=== PATIENT | female | born 1970 | race African-American/Black ===

== ENCOUNTER 2021-11-28 09:29 | Outpatient (REF) | payer OTHER, SELFPAY ==
[2021-11-28 10:11] LABS: MANUAL DIFF FLAG NO
[2021-11-28 10:29] LABS: Basophils Percent Auto 0.5 % (0-2); Eosinophils Absolute Auto 0.2 X10*3/uL (0.0-0.4); Eosinophils Percent Auto 3.8 % (0-4); Hematocrit 37.1 % (37.0-47.0); Lymphocytes Absolute Auto 1.4 X10*3/uL (1.2-4.9); Lymphocytes Percent Auto 35.2 % (20-40); Mean Corpuscular HGB Conc 32.3 g/dl (31.0-35.0); Mean Corpuscular Hemoglobin 27.6 pg (27.0-33.0); Mean Corpuscular Volume 85.3 fL (80.0-98.0); Mean Platelet Volume 10.3 fL (9.4-12.3); Monocytes Absolute Auto 0.4 X10*3/uL (0.1-1.2); Monocytes Percent Auto 10.1 % (2-11); Neutrophils Percent Auto 50.4 % (45-73); Platelet Count 376 X10*3/uL (160-400); Red Blood Count 4.35 X10*6/uL (4.20-5.50); Red Cell Distribution Width 13.3 % (11.0-16.0)
[2021-11-28 10:40] LABS: Estimated Average Glucose 108 mg/dL; Hemoglobin A1c % 5.4 %
[2021-11-28 11:05] LABS: Alanine Aminotransferase 34 U/L (0-31); Albumin Level 4.3 g/dL (3.5-5.0); Alkaline Phosphatase 88 U/L (39-117); Anion Gap 12 (12-20); Aspartate Amino Transferase 22 U/L (5-31); Bilirubin Total 0.6 mg/dL (0.0-1.0); Blood Urea Nitrogen 14 mg/dL (9-16); Calcium 9.5 mg/dL (8.4-10.2); Carbon Dioxide 25 mmol/L (22-29); Chloride 104 mmol/L (96-108); Cholesterol 218 mg/dL; Estimated Glomerular Filt Rate > 60; Glucose Fasting 92 mg/dL (60-99); HDL Cholesterol 40 mg/dL; LDL Cholesterol Calculated 149 mg/dl; Sodium 137 mmol/L (135-145); Total Protein 6.9 g/dL (6.5-8.0); Triglycerides 145 mg/dL
[2021-11-28 11:15] LABS: TSH reflex Free T4 0.78 uIU/mL (0.32-4.0)
[2021-11-28 11:31] LABS: Folate 9.6 ng/mL (> or = 4.0); Vitamin B12 298 pg/mL (200-900)
[2021-11-28 11:33] LABS: Microalbum/Creatinine Ratio Ur 3.5 ug/mg cr
[2021-12-03 17:02] LABS: Vitamin D 25-OH, D2 <4 ng/mL; Vitamin D 25-OH, D3 33 ng/mL; Vitamin D 25-OH, Total 33 ng/mL (30-100)
== END 2021-11-28 09:30 | disposition home or self-care (01) ==
LOC: HO.LAB 09:29
PROVIDERS: PCP Nurse Practitioner Acute Care; Visit Provider Nurse Practitioner Acute Care
DX: E11.9 Type 2 diabetes mellitus without complications (principal); I10 Essential (primary) hypertension
CPT/HCPCS: 36415; 80053; 80061; 82043; 82306; 82607; 82746; 83036; 84443; 85025

== ENCOUNTER 2021-12-12 18:32 | Outpatient (REF) | payer OTHER, SELFPAY ==
[2021-12-12 18:55] LABS: Appearance Urine CLEAR; Color Urine YELLOW; Glucose Urine UA NEG (NEG); Leukocyte Esterase Urine NEG (NEG); Nitrite Urine NEG (NEG); Specific Gravity - Urine <= 1.005 (1.005-1.025); Urine Blood TRACE (NEG); Urine Ketones NEG (NEG); Urine Protein NEG (NEG-TRACE)
[2021-12-12 19:14] LABS: Bacteria Urine 2+ /LPF; Squamous Epithelial Cell Urine 2+ /LPF; WBC Urine 0-2 /HPF (0-4)
== END 2021-12-12 18:33 | disposition home or self-care (01) ==
LOC: HO.LNP 18:32
PROVIDERS: Visit Provider Nurse Practitioner Acute Care
DX: R82.998 Other abnormal findings in urine (principal)
CPT/HCPCS: 81001

== ENCOUNTER → 2021-12-19 08:33 | Outpatient (BNVA) | payer OTHER, SELFPAY | PROVIDERS: PCP Nurse Practitioner Acute Care; Referring Provider Nurse Practitioner Acute Care; Visit Provider Physician Assistant | DX: Z13.89 Encounter for screening for other disorder (principal) ==

== ENCOUNTER → 2022-01-12 08:10 | Outpatient (BNVA) | payer OTHER, SELFPAY | PROVIDERS: PCP Nurse Practitioner Acute Care; Visit Provider Physician Assistant Surgical | DX: Z13.89 Encounter for screening for other disorder (principal) ==

== ENCOUNTER → 2022-01-20 08:38 | Outpatient (BNVA) | payer OTHER, SELFPAY | PROVIDERS: PCP Nurse Practitioner Acute Care; Referring Provider Nurse Practitioner Acute Care; Visit Provider Physician Assistant Surgical | DX: Z11.0 Encounter for screening for intestinal infectious diseases (principal) | CPT/HCPCS: 99211 ==

== ENCOUNTER 2022-01-20 15:48 | Outpatient (REF) | payer OTHER, SELFPAY ==
[2022-01-21 12:42] LABS: H Pylori Breath Test Negative (Negative)
== END 2022-01-20 15:49 | disposition home or self-care (01) ==
LOC: HO.LNP 15:48
PROVIDERS: Visit Provider Physician Assistant Surgical
DX: E66.9 Obesity, unspecified (principal)
CPT/HCPCS: 83013

== ENCOUNTER → 2022-02-12 10:00 | Outpatient (BNVA) | payer OTHER, SELFPAY | PROVIDERS: PCP Nurse Practitioner Acute Care; Referring Provider Surgery; Visit Provider Counselor Mental Health | DX: F33.1 Major depressive disorder, recurrent, moderate (principal); F50.81 Binge eating disorder; E66.9 Obesity, unspecified | CPT/HCPCS: 90791 ==

== ENCOUNTER → 2022-02-16 10:21 | Outpatient (BNVA) | payer OTHER, SELFPAY | PROVIDERS: PCP Nurse Practitioner Acute Care; Referring Provider Surgery; Visit Provider Dietitian, Registered | DX: E66.9 Obesity, unspecified (principal) | CPT/HCPCS: 97802 ==

== ENCOUNTER 2022-02-20 06:58 | Outpatient (REF) | payer OTHER, SELFPAY ==
--- NOTE | ~2022-02-20 | XR_ITS ---
EXAMINATION: XR CHEST 2 VIEWS CLINICAL INFORMATION: Obesity. COMPARISON: None. TECHNIQUE: Frontal and lateral views of the chest were obtained. FINDINGS: The heart, great vessels, pulmonary vasculature and mediastinum are normal. The lungs show no focal infiltrate, effusion or pneumothorax. There is no acute osseous abnormality. XR/XR chest 2V IMPRESSION: No active cardiopulmonary disease.
--- NOTE | 2022-02-20 07:04 | ECG_ITS ---
Test Reason : cp Blood Pressure : / mmHG Vent. Rate : 077 BPM Atrial Rate : 077 BPM P-R Int : 150 ms QRS Dur : 094 ms QT Int : 406 ms P-R-T Axes : 066 -50 -13 degrees QTc Int : 459 ms Normal sinus rhythm Left axis deviation Minimal voltage criteria for LVH, may be normal variant ( Star product ) Septal infarct , age undetermined Abnormal ECG No previous ECGs available Referred By: Vinnie Cornelius Electronically Signed By:NATALIA RANDALL
[2022-02-20 07:48] LABS: C Reactive Protein 0.41 mg/dL (< or = 0.50); Iron 107 mcg/dL (30-160); Percent Iron Saturation 31 % (15-50); Total Iron Binding Capacity 341 mcg/dL (228-428); Unsaturated Iron Binding 234 ug/dL
[2022-02-20 08:12] LABS: Ferritin 45 ng/mL (10-250); Insulin 50 uU/mL (2-29)
[2022-02-23 15:52] LABS: Calcium (PTHI) 9.3 mg/dL (8.6-10.4); PTHI 74 pg/mL (16-77)
[2022-02-25 01:01] LABS: Zinc 86 mcg/dL (60-130)
[2022-02-25 13:05] LABS: Vitamin A 56 mcg/dL (38-98)
[2022-02-26 16:51] LABS: Vitamin B1 8 nmol/L (8-30)
== END 2022-02-20 06:59 | disposition home or self-care (01) ==
LOC: HO.LAB 06:58
PROVIDERS: PCP Nurse Practitioner Acute Care; Visit Provider Physician Assistant Surgical
DX: Z01.818 Encounter for other preprocedural examination (principal); E66.9 Obesity, unspecified
CPT/HCPCS: 36415; 71046; 82728; 83525; 83540; 83970; 84425; 84590; 84630; 86140; 93005

== ENCOUNTER 2022-03-09 | Outpatient (REF) | payer OTHER, SELFPAY | END 2022-03-09 00:01 | disposition home or self-care (01) | LOC: CF | PROVIDERS: PCP Nurse Practitioner Acute Care; Visit Provider Surgery | DX: E66.9 Obesity, unspecified (principal); F50.81 Binge eating disorder; F33.1 Major depressive disorder, recurrent, moderate | CPT/HCPCS: 90834 ==

== ENCOUNTER 2022-03-17 10:56 | Outpatient (REF) | payer OTHER, SELFPAY ==
[2022-03-18 23:06] LABS: Follicle Stimulating Hormone 38.3 mIU/mL; Lutenizing Hormone 87.5 mIU/mL
[2022-03-20 07:06] LABS: HPV mRNA E6/E7 rflx Not Detected (Not Detected)
== END 2022-03-17 10:57 | disposition home or self-care (01) ==
LOC: HO.LAB 10:56
PROVIDERS: Visit Provider Obstetrics & Gynecology
DX: Z01.419 Encounter for gynecological examination (general) (routine) without abnormal findings (principal); Z11.51 Encounter for screening for human papillomavirus (HPV); F32.A Depression, unspecified; Z90.711 Acquired absence of uterus with remaining cervical stump
CPT/HCPCS: 36415; 83001; 83002; 84443; 87624; 88142

== ENCOUNTER → 2022-03-18 10:32 | Outpatient (BNVA) | payer OTHER, SELFPAY | PROVIDERS: PCP Nurse Practitioner Family; Visit Provider Dietitian, Registered | DX: E66.9 Obesity, unspecified (principal); Z71.3 Dietary counseling and surveillance | CPT/HCPCS: 97803 ==

== ENCOUNTER → 2022-05-11 12:47 | Outpatient (BNVA) | payer OTHER, SELFPAY | PROVIDERS: PCP Nurse Practitioner Family; Visit Provider Obstetrics & Gynecology | DX: F32.A Depression, unspecified (principal); Z78.0 Asymptomatic menopausal state | CPT/HCPCS: 99212 ==

== ENCOUNTER 2022-07-29 10:56 | Outpatient (REF) | payer OTHER, SELFPAY ==
[2022-07-29 16:05] LABS: Influenza A PCR NEGATIVE (Negative); Influenza B PCR NEGATIVE (Negative); Resp Syncy Virus RNA Qual PCR NEGATIVE (Negative); SARS COV2 PCR INHOUSE NEGATIVE (Negative)
== END 2022-07-29 10:57 | disposition home or self-care (01) ==
LOC: HO.LAB 10:56
PROVIDERS: Visit Provider Nurse Practitioner Family
DX: Z20.822 Contact with and (suspected) exposure to COVID-19 (principal); J02.9 Acute pharyngitis, unspecified
CPT/HCPCS: 0241U

== ENCOUNTER → 2022-08-24 08:50 | Outpatient (BNVA) | payer OTHER, SELFPAY | PROVIDERS: PCP Nurse Practitioner Family; Visit Provider Physician Assistant Surgical | DX: E66.9 Obesity, unspecified (principal); Z68.35 Body mass index [BMI] 35.0-35.9, adult | CPT/HCPCS: 99212 ==

== ENCOUNTER 2022-11-16 10:30 | Outpatient (REF) | payer OTHER, SELFPAY ==
--- NOTE | ~2022-11-16 | XR_ITS ---
EXAMINATION: XR KNEE, RIGHT CLINICAL INFORMATION: Pain. COMPARISON: None TECHNIQUE: AP and lateral views of the right knee. FINDINGS: Bones and soft tissues are normal. No fracture or joint effusion. Alignment is anatomic. Joint spaces are well maintained. No abnormal soft tissue calcification. XR/XR knee RT 2V IMPRESSION: Normal right knee.
--- NOTE | ~2022-11-16 | XR_ITS ---
EXAMINATION: XR CHEST 2 VIEWS CLINICAL INFORMATION: Dyspnea. COMPARISON: Chest radiographs dated 02/20/2022. TECHNIQUE: Frontal and lateral views of the chest were obtained. FINDINGS: The heart, great vessels, pulmonary vasculature and mediastinum are normal. The lungs show no focal infiltrate, effusion or pneumothorax. There is no acute osseous abnormality. XR/XR chest 2V IMPRESSION: No active cardiopulmonary disease.
== END 2022-11-16 10:31 | disposition home or self-care (01) ==
LOC: HO.XRAY 10:30
PROVIDERS: PCP Nurse Practitioner Family; Visit Provider Nurse Practitioner Family
DX: M25.561 Pain in right knee (principal); R06.09 Other forms of dyspnea
CPT/HCPCS: 71046; 73560

== ENCOUNTER 2023-03-25 13:43 | Outpatient (AMB) | payer OTHER, SELFPAY ==
--- NOTE | 2023-03-25 13:44 | A.OFFPC_ITS ---
Vital Signs 03/25/23 13:46 Height 5 ft 5 in BP 142/90 H Blood Pressure Location Rt brachial Position Sitting Pulse 86 Pulse Source Pulse Oximeter Pulse Oximetry (%) 97 Intake Visit Reasons: headaches, nervousness Intake Note: pt is here for c/o headaches and nervousness, fatigue 1x month. patient declined weight Hazardous Waste Management Specialist Required: No Accompanied by: Self / Same As Patient Allergies Penicillins Allergy (Intermediate, Verified 03/25/23 13:45) Hives Tobacco use date assessed: 02/15/23 Dental Screening Dental Screen Date: 03/25/23 Did you have a dental visit in the last 12 months?: Yes Did you have a dental problem in the last 6 months where you did not have access to dental care?: No Was dental information given to patient?: Patient has dentist HPI HPI Comments History of Present Illness Details 52-year-old female history of hypertension,ADHD, diabetes type 2, major depressive disorder, anxiety and hyperlipidemia.? 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 Patient states has been working 10-14 hour days at work and she has been experiencing work related stress. Patient reports previous on fluoxetine but this caused her to gain weight.Patient also requesting a referral to a weight management program outside of [facility]. [facility] Medical History Encounter to establish care History of PCOS Hypertension Obesity (BMI 30-39.9) Right knee pain Type II diabetes mellitus Surgical History H/O: hysterectomy History of partial hysterectomy Family History Mother No problems noted. Father No problems noted. Brother No problems noted. Brother No problems noted. Sister No problems noted. Son No problems noted. Son No problems noted. Daughter No problems noted. Social History Housing: Apartment Patient Tobacco Use Status: Never used Tobacco e-Cigarette/Vaping Use: Never Used Second Hand Smoke Exposure: No service: No Current occupational status: employed Current occupational exposures/hazards: No Cognitive needs: No Hearing needs: No Vision needs: Yes Questionnaire Thrive Questionnaire Date Thrive assessed: 10/01/22 ALVARO-7 AMB Questionnaire ALVARO-7 Date ALVARO - 7 assessed: 10/01/22 Source: Developed by Drs. Dennis Arreaga, Melody Jeter, Jean Marie Staley and colleagues, with an educational deandre from [employer]. Review of Systems Const Denies chills, Reports fatigue, Denies fever(s), Denies poor appetite and Denies weight loss Eyes Denies no additional complaints ENT Reports Normal hearing present Card Denies chest pain, Denies syncope, Denies rapid heart rate and Denies dyspnea Resp Denies cough and Denies dyspnea GI Denies change in stool character, Denies constipation, Denies diarrhea, Denies nausea and Denies vomiting Denies urinary frequency, Denies dysuria and Denies urinary urgency Neuro Reports Normal hearing present, Denies confusion and Denies syncope Psych Denies confusion Endo Reports fatigue Physical exam (Primary Care) Vital Signs: Last Vital Signs Pulse 86 03/25/23 13:46 BP 142/90 H 03/25/23 13:46 Pulse Ox 97 03/25/23 13:46 Tobacco/Smoking Status: Tobacco use Status Tobacco use date assessed 02/15/23 03/25/23 13:46 Patient Tobacco Use Status Never used Tobacco 03/25/23 13:46 e-Cigarette/Vaping Use Never Used 03/25/23 13:46 Thrive Assessment: Date of Thrive Assessment Date Thrive assessed 10/01/22 03/25/23 13:46 Const General: No confusion Orientation/consciousness: No confusion HENOK Head: Yes normocephalic and Yes atraumatic Eyes Conjunctivae: conjunctivae normal Chest Chest palpation & inspection: normal inspection of the chest Resp Effort & Inspection: normal respiratory effort Auscultation: clear to auscultation bilaterally, no crackles, no rhonchi and no wheezes Cardio Rate: regular rate Rhythm: regular rhythm Heart sounds: S1 normal heart sound present and S2 normal heart sound present GI Inspection: Yes normal to inspection Neuro General: No confusion Cranial nerves: Yes Normal hearing present Extrem General: No edema Assessment and Plan Assessment & Plan (1) Fatigue: Code(s): R53.83 - Other fatigue Plan: Will draw complete blood work to further evaluate. (2) Obesity (BMI 30-39.9): Code(s): E66.9 - Obesity, unspecified Plan: Referral entered to (3) Anxiety: Code(s): F41.9 - Anxiety disorder, unspecified Plan: Patient advised if continues to experience nervousness following BAR exam will dicuss starting her back on SSRI. Patient does not want to take any medication at this time prior to her test. (4) Moderate major depression: Code(s): F32.1 - Major depressive disorder, single episode, moderate Plan: Denies SI/HI. See anxiety plan. Plan Keep scheduled follow up in 1 month. Orders: Orders Vitamin B12 and Folate Today Z13.21 - Encounter for screening for nutritional disorder Comprehensive [place]. Panel Fast Today R53.83 - Other fatigue TSH reflex Free T4 Today Z13.29 - Encounter for screening for other suspected endocrine disorder Vitamin B1 Today R53.83 - Other fatigue Vitamin D 25-OH Total Today Z13.21 - Encounter for screening for nutritional disorder Complete Blood Count Auto Diff Today Z13.0 - Encounter for screening for diseases of the blood and blood-forming organs and certain disorders involving the immune mechanism Lipid Panel Today Z13.220 - Encounter for screening for lipoid disorders Referrals Medical Weight Management Referral E66.9 - Obesity, unspecified Coding Level of Care Code Est Pt Level 4 (03627) Diagnoses Fatigue R53.83 Obesity (BMI 30-39.9) E66.9 Anxiety F41.9 Moderate major depression F32.1
[2023-03-25 13:46] VITALS: BP 142/90; PULSE 86; O2SAT 97
== END 2023-03-25 14:18 | disposition home or self-care (01) ==
PROVIDERS: PCP Nurse Practitioner Family; Visit Provider Nurse Practitioner Family
DX: R53.83 Other fatigue (principal); E66.9 Obesity, unspecified; F41.9 Anxiety disorder, unspecified; F32.1 Major depressive disorder, single episode, moderate
CPT/HCPCS: 99214

== ENCOUNTER 2023-04-26 07:07 | Outpatient (REF) | payer OTHER, SELFPAY ==
[2023-04-26 07:45] LABS: MANUAL DIFF FLAG NO
[2023-04-26 08:22] LABS: Basophils Percent Auto 0.4 % (0-2); Eosinophils Absolute Auto 0.1 X10*3/uL (0.0-0.4); Eosinophils Percent Auto 2.5 % (0-4); Hematocrit 36.3 % (37.0-47.0); Hemoglobin 11.9 g/dl (12.0-16.0); Imm Gran Abs Auto 0.01 X10*3/uL (0.00-0.03); Imm Gran Pct Auto 0.2 % (0.0-0.4); Lymphocytes Absolute Auto 1.5 X10*3/uL (1.2-4.9); Lymphocytes Percent Auto 33.3 % (20-40); Mean Corpuscular HGB Conc 32.8 g/dl (31.0-35.0); Mean Corpuscular Hemoglobin 27.5 pg (27.0-33.0); Mean Platelet Volume 10.2 fL (9.4-12.3); Monocytes Absolute Auto 0.5 X10*3/uL (0.1-1.2); Monocytes Percent Auto 10.9 % (2-11); Neutrophils Absolute Auto 2.4 x10*3/uL (2.0-8.3); Neutrophils Percent Auto 52.7 % (45-73); Platelet Count 386 X10*3/uL (160-400); Red Blood Count 4.32 X10*6/uL (4.20-5.50); Red Cell Distribution Width 14.4 % (11.0-16.0); White Blood Count 4.5 X10*3/uL (4.8-10.8)
[2023-04-26 08:46] LABS: Iron 141 mcg/dL (30-160); Percent Iron Saturation 46 % (15-50); Total Iron Binding Capacity 309 mcg/dL (228-428); Unsaturated Iron Binding 168 ug/dL
[2023-04-26 09:06] LABS: Cortisol Random 13.5 ug/dL
[2023-04-26 09:45] LABS: Alanine Aminotransferase 31 U/L (0-31); Albumin Level 4.3 g/dL (3.5-5.0); Alkaline Phosphatase 86 U/L (39-117); Anion Gap 11 (12-20); Aspartate Amino Transferase 25 U/L (5-31); Bilirubin Total 0.6 mg/dL (0.0-1.0); Blood Urea Nitrogen 11 mg/dL (9-16); Calcium 9.3 mg/dL (8.4-10.2); Carbon Dioxide 27 mmol/L (22-29); Chloride 105 mmol/L (96-108); Cholesterol 235 mg/dL; Estimated Glomerular Filt Rate > 60; Glucose Fasting 101 mg/dL (60-99); HDL Cholesterol 43 mg/dL; LDL Cholesterol Calculated 167 mg/dl; Potassium 4.1 mmol/L (3.3-5.1); Sodium 139 mmol/L (135-145); TSH reflex Free T4 1.86 uIU/mL (0.32-4.0); Triglycerides 126 mg/dL; Vitamin D 25-OH Total 53.7 ng/mL (>30)
[2023-04-26 09:51] LABS: Vitamin B12 407 pg/mL (200-900)
[2023-04-26 11:30] LABS: Estimated Average Glucose 111 mg/dL; Hemoglobin A1c % 5.5 %
[2023-04-26 17:09] LABS: Appearance Urine Cloudy; Color Urine Yellow; Glucose Urine UA Negative (Negative); Leukocyte Esterase Urine Negative (Negative); Nitrite Urine Positive (Negative); PH 7.5 (5.0-9.0); UMIC TRIGGER UACC YES; Urine Blood Negative (Negative); Urine Ketones Negative (Negative); Urine Protein Negative (Neg-Trace)
[2023-04-26 17:30] LABS: Bacteria Urine 4+ (None Seen); Hyaline Casts Urine 0-2 /LPF (0-2); UACC Culture Trigger YES; WBC Urine 0-5 /HPF (0-5)
[2023-04-29 23:33] LABS: Cotinine <2 ng/mL; Nicotine <2 ng/mL
[2023-04-30 17:08] LABS: Vitamin B1 11 nmol/L (8-30)
== END 2023-04-26 07:08 | disposition home or self-care (01) ==
LOC: HO.LAB 07:07
PROVIDERS: Nurse Practitioner Family; Absent Provider Surgery; Visit Provider Nurse Practitioner Family
DX: Z13.220 Encounter for screening for lipoid disorders (principal); Z13.21 Encounter for screening for nutritional disorder; Z13.0 Encounter for screening for diseases of the blood and blood-forming organs and certain disorders involving the immune mechanism; Z13.29 Encounter for screening for other suspected endocrine disorder; R53.83 Other fatigue; E66.9 Obesity, unspecified
CPT/HCPCS: 36415; 80053; 80061; 80323; 81001; 81003; 82306; 82533; 82607; 82746; 83036; 83540; 84425; 84443; 85025; 87086; 87088; 87186

== ENCOUNTER 2023-04-26 09:04 | Outpatient (AMB) | payer OTHER, SELFPAY ==
[2023-04-26 09:07] VITALS: BP 118/88; PULSE 84; O2SAT 99
--- NOTE | 2023-04-26 09:07 | A.OFFPC_ITS ---
Vital Signs 04/26/23 09:07 Height 5 ft 5 in BMI Reason not done Patient refused/unable BP 118/88 Blood Pressure Location Lt brachial Position Sitting Pulse 84 Pulse Source Pulse Oximeter Temp Source Skin Pulse Oximetry (%) 99 Oxygen Delivery Method Room Air Intake Visit Reasons: 2mth f/u Epic Kaleidoscope Analyst Required: No Allergies Penicillins Allergy (Intermediate, Verified 04/26/23 09:07) Hives Tobacco use date assessed: 04/26/23 Dental Screening Dental Screen Date: 04/26/23 Did you have a dental visit in the last 12 months?: Yes Did you have a dental problem in the last 6 months where you did not have access to dental care?: No Was dental information given to patient?: Patient has dentist HPI HPI Comments History of Present Illness Details 52-year-old female history of hypertension,ADHD, diabetes type 2, major depressive disorder, anxiety and hyperlipidemia.? Patient of Kasey Turcios NP last seen in March. Patient presents today for follow up visit. PAtient states requesting to start on medication for depression and anxiety. agreeable to start escitalopram. Patient states being followed by Dr Mahajan for weight management. Patient states has vaginal discharge, denies itching, burning on urination, states odor. x1 week. tired otc monastat with no improvement. States her urine is orange in color, UA in office showed leukocytes and nitrites. Requesting Referral to establish care with obgyn, order entered. [facility] Medical History Encounter to establish care History of PCOS Hypertension Obesity (BMI 30-39.9) Right knee pain Type II diabetes mellitus Surgical History H/O: hysterectomy History of partial hysterectomy Family History Mother No problems noted. Father No problems noted. Brother No problems noted. Brother No problems noted. Sister No problems noted. Son No problems noted. Son No problems noted. Daughter No problems noted. Social History Housing: Apartment Patient Tobacco Use Status: Never used Tobacco e-Cigarette/Vaping Use: Never Used Second Hand Smoke Exposure: No service: No Current occupational status: employed Current occupational exposures/hazards: No Cognitive needs: No Hearing needs: No Vision needs: Yes Questionnaire Thrive Questionnaire Date Thrive assessed: 10/01/22 AUDIT C Alcohol Use Questionnaire (AUDIT-C) 1. How often do you have a drink containing alcohol?: Never 3. How often do you have six or more drinks on one occasion?: Never Total Score: 0 Score Reviewed/Action Taken: No ALVARO-7 AMB Questionnaire ALVARO-7 Date ALVARO - 7 assessed: 10/01/22 Source: Developed by Drs. Dennis Arreaga, Melody Jeter, Jean Marie Staley and colleagues, with an educational deandre from [employer]. Review of Systems Const Denies chills, Denies fatigue, Denies fever(s) and Denies poor appetite Eyes Denies no additional complaints ENT Reports Normal hearing present Card Denies chest pain, Denies syncope, Denies rapid heart rate and Denies dyspnea Resp Denies cough and Denies dyspnea GI Denies change in stool character, Denies constipation, Denies diarrhea, Denies nausea and Denies vomiting Denies urinary frequency, Denies dysuria and Denies urinary urgency Neuro Reports Normal hearing present, Denies confusion and Denies syncope Psych Denies confusion Endo Denies fatigue Physical exam (Primary Care) Vital Signs: Last Vital Signs Pulse 84 04/26/23 09:07 BP 118/88 04/26/23 09:07 Pulse Ox 99 04/26/23 09:07 Oxygen Delivery Method Room Air 04/26/23 09:07 Tobacco/Smoking Status: Tobacco use Status Tobacco use date assessed 04/26/23 04/26/23 09:08 Patient Tobacco Use Status Never used Tobacco 04/26/23 09:08 e-Cigarette/Vaping Use Never Used 04/26/23 09:08 Thrive Assessment: Date of Thrive Assessment Date Thrive assessed 10/01/22 04/26/23 09:08 Const General: No confusion Orientation/consciousness: No confusion HENMT Head: Yes normocephalic and Yes atraumatic Eyes Conjunctivae: conjunctivae normal Chest Chest palpation & inspection: normal inspection of the chest Resp Effort & Inspection: normal respiratory effort Auscultation: clear to auscultation bilaterally, no crackles, no rhonchi and no wheezes Cardio Rate: regular rate Rhythm: regular rhythm Heart sounds: S1 normal heart sound present and S2 normal heart sound present GI Inspection: Yes normal to inspection Neuro General: No confusion Cranial nerves: Yes Normal hearing present Extrem General: No edema Results AMB Urinalysis, Automated UA Leukoctes 15 [place]/uL Last Edit by Shantel Torres Jeanna on 04/26/23 09:28 UA Nitrite Positive Last Edit by Shantel Torres Jeanna on 04/26/23 09:28 UA Urobilinogen 0.2 mg/dL Last Edit by Shantel Torres [facility] on 04/26/23 09:28 UA Protein 15 mg/dL Last Edit by Shantel Torres [facility] on 04/26/23 09:28 UA pH 7.0 Last Edit by Shantel Torres [facility] on 04/26/23 09:28 UA Blood 10 [place]/uL Last Edit by Shantel Torres [facility] on 04/26/23 09:28 UA Specific Walker 1.010 Last Edit by Shantel Torres Jeanna on 04/26/23 09:28 UA Ketone Negative Last Edit by Shantel Torres [facility] on 04/26/23 09:28 UA Bilirubin 0 mg/dL Last Edit by Shantel Torres [facility] on 04/26/23 09:28 UA Glucose 0 mg/dL Last Edit by Shantel Torres [facility] on 04/26/23 09:28 Results Reviewed Results Reviewed: Laboratory Last Values Urine pH (Auto) 7.0 04/26/23 09:26 Specific Walker (Auto) 1.010 04/26/23 09:26 Urine Protein (Auto) 15 mg/dL 04/26/23 09:26 Glucose (UA)(Auto) 0 mg/dL 04/26/23 09:26 Urine Ketones (Auto) Negative 04/26/23 09:26 Urine Blood (Auto) 10 Napoleon/uL 04/26/23 09:26 Urine Nitrite (Auto) Positive 04/26/23 09:26 Urine Bilirubin (Auto) 0 mg/dL 04/26/23 09:26 Urine Urobilinogen (Auto) 0.2 mg/dL 04/26/23 09:26 Leukocyte Esterase (Auto) 15 [place]/uL 04/26/23 09:26 Assessment and Plan Assessment & Plan (1) Moderate major depression: Code(s): F32.1 - Major depressive disorder, single episode, moderate Plan: Declined counseling referral at this time, agreeable to start on escitalopram 10mg daily. RX sent to patients pharmacy will frollow up in 1 month. Denies SI/HI. (2) UTI (urinary tract infection): Code(s): N39.0 - Urinary tract infection, site not specified Plan: Macrobid sent to patients pharmacy and urine sent out for culture. (3) Hyperlipemia: Code(s): E78.5 - Hyperlipidemia, unspecified Qualifiers: Hyperlipidemia type: pure hypercholesterolemia Qualified Code(s): E78.00 - Pure hypercholesterolemia, unspecified Plan: Avoid fried foods, chicken skin, eggs, butter,margarine, pastries and? red meat. (4) Hypertension: Code(s): I10 - Essential (primary) hypertension Plan: Follow low salt diet and excercise blood pressure below goal today 118/88 [place] on losartan (5) Type II diabetes mellitus: Code(s): E11.9 - Type 2 diabetes mellitus without complications Plan: Metformin on hold, hgb A1c 5.5% Patient educated to decrease the amount of carbohydrate intake such as pasta, bread, rice and potatoes are all sugar in addition to the sweet stuff. Remember that fruits are good but they also have sugar.Hemoglobin A1c goal of less than 6.5% Plan Follow up in 1 month or sooner if needed. Orders: Orders AMB Urinalysis Automated Today R30.0 - Dysuria Referrals CHEMICAL LABORATORY TESTER Referral Z12.4 - Encounter for screening for malignant neoplasm of cervix Medications: New escitalopram oxalate 10 mg PO DAILY 30 tabs 2RF F32.1 - Major depressive disorder, single episode, moderate nitrofurantoin monohyd/m-cryst 100 mg (Macrobid) must administer with a meal/food 100 mg PO Q12H 5 days 10 caps 0RF Discontinued hydroxyzine HCl Discontinued Reason: No Longer Medically Relevant 25 mg PO TID PRN 60 tabs 0RF anxiety F41.9 - Anxiety disorder, unspecified Coding Level of Care Code Est Pt Level 4 (06954) Diagnoses Moderate major depression F32.1 UTI (urinary tract infection) N39.0 Hyperlipemia E78.00 Hyperlipidemia type: pure hypercholesterolemia Hypertension I10 Type II diabetes mellitus E11.9
== END 2023-04-26 09:59 | disposition home or self-care (01) ==
PROVIDERS: PCP Nurse Practitioner Family; Visit Provider Nurse Practitioner Family
DX: I10 Essential (primary) hypertension (principal); F32.1 Major depressive disorder, single episode, moderate; E11.9 Type 2 diabetes mellitus without complications; R30.0 Dysuria; N39.0 Urinary tract infection, site not specified; E78.00 Pure hypercholesterolemia, unspecified
CPT/HCPCS: 81003; 99214

== ENCOUNTER 2023-08-27 08:26 | Outpatient (AMB) | payer OTHER, SELFPAY ==
[2023-08-27 08:36] VITALS: BP 156/100; PULSE 83; O2SAT 96
--- NOTE | 2023-08-27 08:36 | MHC.PC.OV ---
Vital Signs 08/27/23 08:36 Height 5 ft 5 in BMI Reason not done Patient refused/unable BP 156/100 H Blood Pressure Location Rt brachial Position Sitting Pulse 83 Pulse Source Pulse Oximeter Pulse Oximetry (%) 96 Oxygen Delivery Method Room Air Intake Visit Reasons: Medication Follow Up Bobbin Handler Required: No Accompanied by: Self / Same As Patient Allergies Penicillins Allergy (Intermediate, Verified 08/27/23 08:40) Hives Tobacco use date assessed: 04/26/23 Dental Screening Dental Screen Date: 08/27/23 Did you have a dental visit in the last 12 months?: Yes Did you have a dental problem in the last 6 months where you did not have access to dental care?: No Was dental information given to patient?: Patient has dentist HPI HPI Comments History of Present Illness Details 52-year-old female history of hypertension,ADHD, diabetes type 2, major depressive disorder, anxiety and hyperlipidemia.? Patient of Kasey Turcios NP last seen in April. Patient presents today for follow up visit. Patient states stopped taking escitalopram as it made her gain weight. Discussed referral to counseling and psychiatry, patient agreeable would like referral as she has not been followed by Psychiatry in a while since moving from [place]. Patient states being followed by Dr Mahajan for weight management and everythung is going well. Patient requesting referral to Christine DAVENPORT, ordered entered. Patient reports urinary frequency, urinary dribbling and odorous urine. Patient denies any fever, chills and flank pain. Patient last treated for UTI in April 2023. Urinalysis obtained in office, will send out for culture prior to treatment for UTI. Patient advised to decrease caffeine and carbonated beverages as well as reduce weight see if this improves symptoms of urinary incontinence. Hemoglobin A1c 5.8%. FORMERLY [facility], [facility]–1983 Medical History Encounter to establish care History of PCOS Hypertension Obesity (BMI 30-39.9) Right knee pain Type II diabetes mellitus Surgical History H/O: hysterectomy History of partial hysterectomy Family History Mother No problems noted. Father No problems noted. Brother No problems noted. Brother No problems noted. Sister No problems noted. Son No problems noted. Son No problems noted. Daughter No problems noted. Social History Housing: Apartment Patient Tobacco Use Status: Never used Tobacco e-Cigarette/Vaping Use: Never Used Second Hand Smoke Exposure: No service: No Current occupational status: employed Current occupational exposures/hazards: No Cognitive needs: No Hearing needs: No Vision needs: Yes Questionnaire Thrive Questionnaire Date Thrive assessed: 10/01/22 ALVARO-7 AMB Questionnaire ALVARO-7 Date ALVARO - 7 assessed: 10/01/22 Source: Developed by Drs. Dennis Arreaga, Melody Jeter, Jean Marie Staley and colleagues, with an educational deandre from [employer]. Review of Systems Const Denies chills, Denies fatigue, Denies fever(s) and Denies poor appetite Eyes Denies no additional complaints ENT Reports Normal hearing present Card Denies chest pain, Denies syncope, Denies rapid heart rate and Denies dyspnea Resp Denies cough and Denies dyspnea GI Denies change in stool character, Denies constipation, Denies diarrhea, Denies nausea and Denies vomiting Denies urinary frequency, Denies dysuria and Denies urinary urgency Neuro Reports Normal hearing present, Denies confusion and Denies syncope Psych Denies confusion Endo Denies fatigue Physical exam (Primary Care) Vital Signs: Last Vital Signs Pulse 83 08/27/23 08:36 BP 156/100 H 08/27/23 08:36 Pulse Ox 96 08/27/23 08:36 Oxygen Delivery Method Room Air 08/27/23 08:36 Tobacco/Smoking Status: Tobacco use Status Tobacco use date assessed 04/26/23 08/27/23 08:39 Patient Tobacco Use Status Never used Tobacco 08/27/23 08:39 e-Cigarette/Vaping Use Never Used 08/27/23 08:39 Thrive Assessment: Date of Thrive Assessment Date Thrive assessed 10/01/22 08/27/23 08:39 Const General: No confusion Orientation/consciousness: No confusion HENMT Head: Yes normocephalic and Yes atraumatic Eyes Conjunctivae: conjunctivae normal Chest Chest palpation & inspection: normal inspection of the chest Resp Effort & Inspection: normal respiratory effort Auscultation: clear to auscultation bilaterally, no crackles, no rhonchi and no wheezes Cardio Rate: regular rate Rhythm: regular rhythm Heart sounds: S1 normal heart sound present and S2 normal heart sound present GI Inspection: Yes normal to inspection Neuro General: No confusion Cranial nerves: Yes Normal hearing present Extrem General: No edema Office Procedures Flu Questionnaire Does the patient have a severe egg allergy?: No Does the patient have severe life threatening allergies?: No Does the patient have a fever or illness today?: No Has the patient ever had Guillain-F[place]mouth Syndrome?: No Has the patient ever had any past reaction to a flu shot?: No Results AMB Hemoglobin A1c AMB Hemoglobin A1c 5.8 % Last Edit by Munira Lugo on 08/27/23 08:59 AMB Urinalysis, Automated UA Leukoctes 0 [place]/uL Last Edit by Munira Lugo on 08/27/23 09:34 UA Nitrite Negative Last Edit by Munira Lugo on 08/27/23 09:34 UA Urobilinogen 0.2 mg/dL Last Edit by Munira Lugo on 08/27/23 09:34 UA Protein 15 mg/dL Last Edit by Munira Lugo on 08/27/23 09:34 UA pH 6.0 Last Edit by Munira Lugo on 08/27/23 09:34 UA Blood 10 [place]/uL Last Edit by Munira Lugo on 08/27/23 09:34 UA Specific [place] 1.015 Last Edit by Munira Lugo on 08/27/23 09:34 UA Ketone Negative Last Edit by Munira Lugo on 08/27/23 09:34 UA Bilirubin 0 mg/dL Last Edit by Munira Lugo on 08/27/23 09:34 UA Glucose 0 mg/dL Last Edit by Munira Lugo on 08/27/23 09:34 Immunizations flu vacc [id number] 6mos up(PF) 60 mcg(15 mcgx4)/0.5 mL IM syringe Performing Provider: BENJAMÍN Reaves [facility] Administered by: CELESTINA Nguyen on 08/27/23 09:12 Dose Route Admin Location Dispensed Lot Number Expiration Date NDC Java Lead Developer 0.5 mL IM Left Deltoid 0.5 mL [id number] 03/12/24 95632-642-91 [employer] VIS Given Date VIS Provided VIS Publication Date 08/27/23 Single Vaccine 21 Eligibility Eligibility Date Funding Source Not [facility] Eligible 08/27/23 Private Results Reviewed Results Reviewed: Laboratory Last Values Hgb A1c (Clinic) 5.8 % (4.0-6.0) 08/27/23 08:49 Urine pH (Auto) 6.0 08/27/23 09:13 Specific [place] (Auto) 1.015 08/27/23 09:13 Urine Protein (Auto) 15 mg/dL 08/27/23 09:13 Glucose (UA)(Auto) 0 mg/dL 08/27/23 09:13 Urine Ketones (Auto) Negative 08/27/23 09:13 Urine Blood (Auto) 10 [place]/uL 08/27/23 09:13 Urine Nitrite (Auto) Negative 08/27/23 09:13 Urine Bilirubin (Auto) 0 mg/dL 08/27/23 09:13 Urine Urobilinogen (Auto) 0.2 mg/dL 08/27/23 09:13 Leukocyte Esterase (Auto) 0 [place]/uL 08/27/23 09:13 Assessment and Plan Assessment & Plan (1) Dysuria: Code(s): R30.0 - Dysuria Plan: urinalysis completed in office, trace blood. Otherwise unremarkable. Will send out for culture for furthure evaluation and treat with antibiotics if warranted. Plan Follow-up in 6 months Orders: Orders AMB Hemoglobin A1c Today Z13.9 - Encounter for screening, unspecified AMB Urinalysis Automated Today R35.0 - Frequency of micturition, Z13.9 - Encounter for screening, unspecified Urine Culture Today N39.0 - Urinary tract infection, site not specified, R35.0 - Frequency of micturition Influenza [id number] Immunization Today Z23 - Encounter for immunization UA w Microscopic Today N39.0 - Urinary tract infection, site not specified, R35.0 - Frequency of micturition, R82.998 - Other abnormal findings in urine Referrals Counseling Referral F98.8 - Other specified behavioral and emotional disorders with onset usually occurring in childhood and adolescence Psychiatry Referral F98.8 - Other specified behavioral and emotional disorders with onset usually occurring in childhood and adolescence IT ASSISTANT Referral Z12.4 - Encounter for screening for malignant neoplasm of cervix Medications: Discontinued nitrofurantoin monohyd/m-cryst 100 mg (Macrobid) must administer with a meal/food Discontinued Reason: Patient Completed Course 100 mg PO Q12H 5 days 10 caps 0RF escitalopram oxalate Discontinued Reason: Patient no longer taking 10 mg PO DAILY 30 tabs 2RF F32.1 - Major depressive disorder, single episode, moderate Coding Level of Care Code Est Pt Level 4 (06799) Diagnoses Dysuria R30.0
== END 2023-08-27 09:19 | disposition home or self-care (01) ==
PROVIDERS: PCP Nurse Practitioner Family; Visit Provider Nurse Practitioner Family
DX: Z23 Encounter for immunization (principal); E11.9 Type 2 diabetes mellitus without complications; R35.0 Frequency of micturition; R30.0 Dysuria
CPT/HCPCS: 81003; 83036; 90471; 90686; 99214

== ENCOUNTER 2023-08-27 17:23 | Outpatient (REF) | payer OTHER, SELFPAY ==
[2023-08-27 17:35] LABS: Appearance Urine Cloudy; Color Urine Yellow; Glucose Urine UA Negative (Negative); Leukocyte Esterase Urine Negative (Negative); Nitrite Urine Negative (Negative); PH 6.5 (5.0-9.0); Specific Gravity - Urine 1.025 (1.005-1.025); Urine Blood Negative (Negative); Urine Ketones Trace mg/dL (Negative); Urine Protein Trace mg/dL (Neg-Trace)
[2023-08-27 17:54] LABS: Bacteria Urine 3+ (None Seen); Hyaline Casts Urine 0-2 /LPF (0-2); WBC Urine 0-5 /HPF (0-5)
== END 2023-08-27 17:24 | disposition home or self-care (01) ==
LOC: HO.LNP 17:23
PROVIDERS: Visit Provider Nurse Practitioner Family
DX: N39.0 Urinary tract infection, site not specified (principal); R35.0 Frequency of micturition; R82.998 Other abnormal findings in urine
CPT/HCPCS: 81001; 87086

== ENCOUNTER 2023-09-29 16:06 | Outpatient (AMB) | payer OTHER, SELFPAY ==
--- NOTE | 2023-09-29 16:07 | MHC.PC.OV ---
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 Required: No Accompanied by: Self / Same As Patient Allergies Penicillins Allergy (Intermediate, Verified 09/29/23 16:38) Hives Medication List - Last Reconciled 09/29/23 by Markos Gillette MD albuterol sulfate 90 mcg/actuation (Ventolin HFA) 2 puffs inhalation Q6H PRN dextroamphetamine-amphetamine 20 mg (Adderall) 20 mg PO DAILY hydrochlorothiazide 25 mg PO DAILY losartan 50 mg PO DAILY metformin 500 mg PO DAILY Tobacco use date assessed: 09/29/23 Dental Screening Dental Screen Date: 09/29/23 Did you have a dental visit in the last 12 months?: Yes Did you have a dental problem in the last 6 months where you did not have access to dental care?: No Was dental information given to patient?: Patient has dentist HPI Transfer of Care [facility]/ [facility]/[phone] HPI Details Patient's follow-up visit / consultation today is done over the phone - this is a Telehealth visit Patient's current medications have been reviewed and verified with patient and / or caregiver / proxy and have been updated accordingly in the medication list Patient previously sees Regine Burkett, who has recently left the practice States that she could not make it to the office in time for her appt today so she called to ask to have her appt changed to a telehealth instead Patient states that she is still experiencing urinary frequency and occasional dysuria Relates that she was treated with Abx by PCP last month with only some improvement and would like to know what she needs to do next regarding her symptoms States that she was referred by PCP for counseling last month and she will be starting that soon She also needs a few of her Rx refilled She denies any headaches or dizziness Denies any chest pains, no SOB No nausea/vomiting, no abdominal pain No change in bowel habits noted ON LICENSE OF [facility] Medical History (Updated 09/30/23 @ 09:50 by Markos Gillette MD) Diabetes mellitus Essential hypertension Right knee pain History of PCOS Obesity (BMI 30-39.9) Type II diabetes mellitus Hypertension Surgical History H/O: hysterectomy History of partial hysterectomy Family History Mother No problems noted. Father No problems noted. Brother No problems noted. Brother No problems noted. Sister No problems noted. Son No problems noted. Son No problems noted. Daughter No problems noted. Social History Housing: Apartment Patient Tobacco Use Status: Never used Tobacco e-Cigarette/Vaping Use: Never Used Second Hand Smoke Exposure: No service: No Current occupational status: employed Current occupational exposures/hazards: No Cognitive needs: No Hearing needs: No Vision needs: Yes Questionnaire PHQ-9 Over the last 2 weeks, how often have you been bothered by any of the following problems? 1. Little interest or pleasure in doing things: not at all 2. Feeling down, depressed, or hopeless: not at all 3. Trouble falling or staying asleep, or sleeping too much: not at all 4. Feeling tired or having little energy: not at all 5. Poor appetite or overeating: not at all 6. Feeling bad about yourself - or that you are a failure or have let yourself or your family down: not at all 7. Trouble concentrating on things, such as reading the newspaper or watching television: not at all 8. Moving or speaking so slowly that other people could have noticed. Or the opposite - being so fidgety or restless that you have been moving around a lot more than usual: not at all 9. Thoughts that you would be better off or of hurting yourself in some way: not at all Total score: 0 Depression Screening Interpretation: Negative Depression Screening Done: Yes 19371 - PHQ-9 Billing: Yes Source: Developed by Drs. Dennis Arreaga, Melody Jeter, Jean Marie Staley and colleagues, with an educational deandre from [employer]. Thrive Questionnaire Date Thrive assessed: 09/29/23 I am a: Patient What is your living situation today?: I have a steady place to live Within the past 12 months, did the food you bought not last and you didn't have the money to get more?: Never true Within the past 12 months, did you worry whether your food would run out before you got money to buy more?: Never true Do you have trouble paying for medicines?: No Do you have trouble getting transportation to medical appointments?: No Do you have trouble paying your heating and electricity bill?: No Do you have trouble taking care of your child, family member or friend?: No Do you have trouble with day-to-day activities such as bathing, preparing meals, shopping, managing finances, etc.?: No Are you currently unemployed and looking for a job?: No Are you interested in more education?: No Please select the resources that you would like help with: None Currently or been in a relationship where the following occur: no concerns reported AUDIT C Alcohol Use Questionnaire (AUDIT-C) 1. How often do you have a drink containing alcohol?: Never 3. How often do you have six or more drinks on one occasion?: Never Total Score: 0 Score Reviewed/Action Taken: Yes ALVARO-7 AMB Questionnaire ALVARO-7 Date ALVARO - 7 assessed: 09/29/23 Feeling nervous, anxious, or on edge: 0 = Not at all Not being able to stop or control worryin = Not at all Worrying too much about different things: 0 = Not at all Trouble relaxin = Not at all Being so restless that it is hard to sit still: 0 = Not at all Becoming easily annoyed or irritable: 0 = Not at all Feeling afraid as if something awful might happen: 0 = Not at all Total ALVARO-7 score (0-4 normal; 5-9 mild; 10-14 moderate; 15-21 severe): 0 Source: Developed by Drs. Dennis Arreaga, Melody Jeter, Jean Marie Staley and colleagues, with an educational deandre from [employer]. Review of Systems Const Denies chills, Denies fatigue, Denies fever(s) and Denies headache(s) ENT Denies dysphagia, Denies dizziness, Denies otalgia, Denies headache(s), Denies neck pain, Denies odynophagia and Denies sore throat Card Denies chest pain, Denies palpitations and Denies dyspnea Resp Denies cough and Denies dyspnea GI Denies abdominal pain, Denies constipation, Denies dysphagia, Denies heartburn, Denies diarrhea, Denies nausea, Denies odynophagia and Denies vomiting Denies difficulty voiding, Reports nocturia, Reports dysuria (at times, mild), Reports urinary hesitancy (on and off) and Reports urinary urgency (on and off) Musc Denies neck pain Neuro Denies dizziness and Denies headache(s) Endo Denies fatigue and Denies palpitations Physical exam (Primary Care) Vital Signs: Physical examination is not performed as visit / consultation today is done over the phone - Telehealth visit All physical findings indicated here, if present, are as per patient's and / or caregivers / proxy's report Tobacco/Smoking Status: Tobacco use Status Tobacco use date assessed 09/29/23 09/29/23 16:10 Patient Tobacco Use Status Never used Tobacco 09/29/23 16:10 e-Cigarette/Vaping Use Never Used 09/29/23 16:10 PHQ-9: PHQ-9 Score PHQ-9: Total score 0 09/29/23 16:38 Depression Screening Interpretation: Negative Thrive Assessment: Date of Thrive Assessment Date Thrive assessed 09/29/23 09/29/23 16:10 Currently or been in a relationship where the following occur: no concerns reported Telehealth Telehealth Location of provider rendering services: practice address Location of patient: address on file Patient Identification confirmed using: Name, : Yes Telehealth method: voice only Patient verbally consented to treatment: Yes Patient verbally consented to billing insurance company: Yes Patient informed of any privacy concerns related to visit: Yes Minutes spent on Phone/Video with Pt.: 21 Assessment and Plan Assessment & Plan (1) Urinary frequency: Code(s): R35.0 - Frequency of micturition Plan: Patient is advised that her urine culture done by her PCP last month came out unrevealing Have pointed out to her that she is on a diuretic (HCTZ) and this is also contributing to her urinary frequency and should ideally take this early in the morning to minimize its impact at nighttime Discussed that her urinary symptoms are also suggestive of an overactive bladder and may not necessarily be just due to some UTI Will refer her to urology for further evaluation and management (2) Essential hypertension: Code(s): I10 - Essential (primary) hypertension Plan: Reinforced low sodium diet - goal is systolic BP of 120 mm or less Continue Losartan 50 mg QD and HCTZ 25 mg QD She is reminded to continue monitoring her blood pressure regularly (3) Diabetes mellitus: Code(s): E11.9 - Type 2 diabetes mellitus without complications Qualifiers: Diabetes mellitus type: type 2 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 insulin use: without petroleum terminal plant operator use Diabetes mellitus complication status: without complication Qualified Code(s): E11.9 - Type 2 diabetes mellitus without complications Plan: In-office HgbA1c was at 5.8% when last checked about a month ago on 08/27/2023 (HgbA1c was at 5.3% back in April 2023) - goal is at least <7.0% Reinforced diabetic diet Continue Metformin 500 mg QD Will have her recheck her labs in a couple of months before her next follow up visit in November 2023 with her new PCP (4) STARK (dyspnea on exertion): Code(s): R06.09 - Other forms of dyspnea Plan: Per request, will refill her Albuterol inhaler Rx - states that she uses this as needed only Patient had a couple of chest x-rays done over the past 2 years and both came back completely normal Patient denies any Hx of asthma and has never smoked in her life Suspect that her symptoms are more likely due to a combination of several factors, including her weight as well as physical decompensation (5) ADD (attention deficit disorder): Code(s): F98.8 - Other specified behavioral and emotional disorders with onset usually occurring in childhood and adolescence Qualifiers: Hyperactivity presence: present Attention deficit-hyperactivity disorder type: unspecified Qualified Code(s): F90.9 - Attention-deficit hyperactivity disorder, unspecified type Plan: She has been referred for counseling last month and will be starting her counseling sessions soon Patient used to take Adderall 20 mg QD in the past but has not taken Rx in over a year now (6) Obesity (BMI 30-39.9): Code(s): E66.9 - Obesity, unspecified Plan: Reinforced diet/exercise as tolerated/lose weight Plan Follow up as scheduled in November 2023 Orders: Orders Complete Blood Count Auto Diff 11/12/23 D64.9 - Anemia, unspecified Hemoglobin A1c 11/12/23 E11.9 - Type 2 diabetes mellitus without complications TSH reflex Free T4 11/12/23 E78.00 - Pure hypercholesterolemia, unspecified Comprehensive [place]. Panel Fast 11/12/23 E11.9 - Type 2 diabetes mellitus without complications Lipid Panel 11/12/23 E11.9 - Type 2 diabetes mellitus without complications UA CC w/rflx Micro + Cult 11/12/23 R30.0 - Dysuria Vitamin D 25-OH Total 11/12/23 E55.9 - Vitamin D deficiency, unspecified Referrals Urology Referral R35.0 - Frequency of micturition Medications: Changed From metformin 500 mg PO DAILY 60 tabs 1RF E11.9 - Type 2 diabetes mellitus without complications To metformin 500 mg PO DAILY 90 days 90 tabs 1RF E11.9 - Type 2 diabetes mellitus without complications Refilled losartan 50 mg PO DAILY 90 tabs 1RF albuterol sulfate 90 mcg/actuation (Ventolin HFA) 2 puffs inhalation Q6H PRN 6.7 grams 2RF shortness of breath or wheezing Coding Level of Care Code Tele Est Pt Level 4 (63123) Diagnoses Urinary frequency R35.0 Essential hypertension I10 Type 2 diabetes mellitus without complication, without long-term current use of insulin E11.9 Diabetes mellitus type: type 2 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
== END 2023-09-29 17:07 | disposition home or self-care (01) ==
PROVIDERS: PCP Internal Medicine; Visit Provider Internal Medicine
DX: E11.9 Type 2 diabetes mellitus without complications (principal); E66.9 Obesity, unspecified; R35.0 Frequency of micturition; I10 Essential (primary) hypertension; R06.09 Other forms of dyspnea; F90.9 Attention-deficit hyperactivity disorder, unspecified type
CPT/HCPCS: 99214

== ENCOUNTER 2023-10-04 10:23 | Outpatient (AMB) | payer OTHER, SELFPAY ==
--- NOTE | 2023-10-04 11:14 | AM.OFFWIN_ITS ---
Intake Vital Signs 10/04/23 11:16 Height 5 ft 5 in BMI Reason not done Patient refused/unable BP 140/80 H Blood Pressure Location Lt brachial Position Sitting Pulse 80 Pulse Source Pulse Oximeter Temp 98.8 F Temp Source Oral Pulse Oximetry (%) 98 Oxygen Delivery Method Room Air Intake Visit Reasons: EP Allergy, SOB Intake Note: pt is here for c.o full body itchiness, denies hives or redness, states difficulty breathing due to cough Patient Tobacco Use Status: Never used Tobacco Allergies Penicillins Allergy (Intermediate, Verified 10/04/23 11:46) Hives Medication List - Last Reconciled 10/04/23 by Landry Palomo MD albuterol sulfate 90 mcg/actuation (Ventolin HFA) 2 puffs inhalation Q6H PRN hydrochlorothiazide 25 mg PO DAILY losartan 50 mg PO DAILY metformin 500 mg PO DAILY 90 days Do you need a note to return to daycare/school/sports/work: Yes HPI EP Allergy, SOB HPI Details 53-year-old female presents to the [facility] for a sick visit. Patient reports of symptoms of itchiness. The itching is mostly in the upper hands, forearms. There is no rash. The symptoms are present for the past 5 days. In the last 3 days she developed a cough, wheezing and postnasal drip. 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 No fevers or chills. [facility] Medical History (Updated 09/30/23 @ 09:50 by Markos Gillette MD) Diabetes mellitus Essential hypertension Right knee pain History of PCOS Obesity (BMI 30-39.9) Type II diabetes mellitus Hypertension Surgical History H/O: hysterectomy History of partial hysterectomy Family History Mother No problems noted. Father No problems noted. Brother No problems noted. Brother No problems noted. Sister No problems noted. Son No problems noted. Son No problems noted. Daughter No problems noted. Social History Housing: Apartment Patient Tobacco Use Status: Never used Tobacco e-Cigarette/Vaping Use: Never Used Second Hand Smoke Exposure: No service: No Current occupational status: employed Current occupational exposures/hazards: No Cognitive needs: No Hearing needs: No Vision needs: Yes Physical Exam Vital Signs: Last Vital Signs Temp 98.8 F 10/04/23 11:16 Pulse 80 10/04/23 11:16 BP 140/80 H 10/04/23 11:16 Pulse Ox 98 10/04/23 11:16 Oxygen Delivery Method Room Air 10/04/23 11:16 Const General: cooperative and healthy appearing Nutritional Appearance: well nourished Orientation/consciousness: patient oriented x3 Limitations: no limitations HEENT Head: Yes normal to inspection Eyes General: appearance normal, both eyes and all related structures Neck Neck: Yes normal visual inspection Chest Chest palpation & inspection: normal palpation of entire chest wall Resp Effort & Inspection: normal respiratory effort Neuro General: patient oriented x3 Assessment & Plan Assessment & Plan (1) Upper respiratory tract infection: Code(s): J06.9 - Acute upper respiratory infection, unspecified Plan: Antibiotics called in. Prednisone called in. Use albuterol inhalers as directed. Symptoms do not improve to follow-up here. Coding Level of Care Code Est Pt Level 3 (86080) Diagnoses Upper respiratory tract infection J06.9
[2023-10-04 11:16] VITALS: BP 140/80; PULSE 80; TEMP 37.1; O2SAT 98
== END 2023-10-04 12:10 | disposition home or self-care (01) ==
PROVIDERS: PCP Nurse Practitioner Family; Visit Provider Internal Medicine
DX: J06.9 Acute upper respiratory infection, unspecified (principal)
CPT/HCPCS: 99213

== ENCOUNTER 2024-01-20 14:34 | Outpatient (AMB) | payer OTHER, SELFPAY ==
--- NOTE | 2024-01-20 14:39 | MHC.PC.OV ---
Vital Signs 01/20/24 14:40 Height 5 ft 5 in Weight 193 lb 6 oz BMI 32.2 BP 120/74 Blood Pressure Location Lt brachial Position Sitting Pulse 75 Pulse Source Pulse Oximeter Pulse Oximetry (%) 96 Oxygen Delivery Method Room Air Intake Visit Reasons: HTN, DM Intake Note: Patient is here to follow up on HTN, DM. Registered Nurse Midwife Required: No Elevator Dispatcher: Not Required per policy Accompanied by: Self / Same As Patient Allergies Penicillins Allergy (Intermediate, Verified 01/23/24 12:50) Hives Medication List - Last Reconciled 01/23/24 by Landry Palomo MD acetaminophen mg PO albuterol sulfate 90 mcg/actuation (Ventolin HFA) 2 puffs inhalation Q6H PRN hydrochlorothiazide 25 mg PO DAILY losartan 50 mg PO DAILY pantoprazole 40 mg PO DAILY simethicone 160 mg PO BID Tobacco use date assessed: 01/20/24 Dental Screening Dental Screen Date: 09/29/23 HPI HTN, DM HPI Details 53-year-old female presents to the office to discuss her medical condition. I am assuming her care as her primary care provider is no longer in the practice. Patient recently had a sleeve gastrectomy in December 2023. Procedure went well but patient is having severe hunger pangs. She has not able to eat much and has discomfort at the base of the sternum when she swallows or eats. From 211 lb she is now 193 lb. Patient feels very anxious. She has stopped her metformin. Blood pressure is in range. [facility] Medical History Diabetes mellitus Essential hypertension Right knee pain History of PCOS Obesity (BMI 30-39.9) Type II diabetes mellitus Hypertension Surgical History History of gastric surgery H/O: hysterectomy History of partial hysterectomy Family History Mother No problems noted. Father No problems noted. Brother No problems noted. Brother No problems noted. Sister No problems noted. Son No problems noted. Son No problems noted. Daughter No problems noted. Social History Housing: Apartment Alcohol intake: never Patient Tobacco Use Status: Never used Tobacco e-Cigarette/Vaping Use: Never Used Second Hand Smoke Exposure: No service: No Current occupational status: employed Current occupational exposures/hazards: No Cognitive needs: No Hearing needs: No Vision needs: Yes Questionnaire Thrive Questionnaire Date Thrive assessed: 09/29/23 Currently or been in a relationship where the following occur: no concerns reported THRIVE Score: 0 ALVARO-7 AMB Questionnaire ALVARO-7 Date ALVARO - 7 assessed: 09/29/23 Source: Developed by Drs. Dennis Arreaga, Melody Jeter, Jean Marie Staley and colleagues, with an educational deandre from [employer]. Physical exam (Primary Care) Vital Signs: Last Vital Signs Pulse 75 01/20/24 14:40 BP 120/74 01/20/24 14:40 Pulse Ox 96 01/20/24 14:40 Oxygen Delivery Method Room Air 01/20/24 14:40 Care Plan Goal for BP management: Blood pressure is in range. Continue current medications. BMI result Body Mass Index 32.2 BMI Assessment/Plan discussion: High (Recently underwent sleeve gastrectomy.) BMI High, discussed plan: lifestyle, weight reduction, dietary and physical activity Tobacco/Smoking Status: Tobacco use Status Tobacco use date assessed 01/20/24 01/20/24 14:52 Patient Tobacco Use Status Never used Tobacco 01/20/24 14:52 e-Cigarette/Vaping Use Never Used 01/20/24 14:52 Thrive Assessment: Date of Thrive Assessment Date Thrive assessed 09/29/23 01/20/24 14:52 Currently or been in a relationship where the following occur: no concerns reported Const General: cooperative and healthy appearing Nutritional Appearance: well nourished Orientation/consciousness: patient oriented x3 Limitations: no limitations HENMT Head: Yes normal to inspection Eyes General: appearance normal, both eyes and all related structures Neck Neck: Yes normal visual inspection Chest Chest palpation & inspection: normal palpation of entire chest wall Resp Effort & Inspection: normal respiratory effort Neuro General: patient oriented x3 Results AMB Hemoglobin A1c AMB Hemoglobin A1c 5.5 % Last Edit by CELESTINA Drake on 01/20/24 14:53 Results Reviewed Results Reviewed: Laboratory Last Values Hgb A1c (Clinic) 5.5 % (4.0-6.0) 01/20/24 14:38 Assessment and Plan Assessment & Plan (1) Diabetes mellitus: Code(s): E11.9 - Type 2 diabetes mellitus without complications Qualifiers: Diabetes mellitus type: type 2 Diabetes mellitus care home insulin use: without care home use Diabetes mellitus complication status: without complication Qualified Code(s): E11.9 - Type 2 diabetes mellitus without complications Plan: Metformin has been discontinued. A1c is less than 6. (2) Essential hypertension: Code(s): I10 - Essential (primary) hypertension Plan: Blood pressure is in range. Continue current medications. (3) Major depressive disorder, recurrent, moderate: Code(s): F33.1 - Major depressive disorder, recurrent, moderate Plan: Condition is stable. (4) Obesity (BMI 30-39.9): Code(s): E66.9 - Obesity, unspecified Plan: Patient encouraged to continue treatment offered by the bariatric center in [facility]. The hunger pangs heal slowly subside. Orders: Orders AMB Hemoglobin A1c 01/20/24 E11.9 - Type 2 diabetes mellitus without complications Medications: Discontinued metformin Discontinued Reason: Doctor's Order 500 mg PO DAILY 90 tabs 1RF 90 days E11.9 - Type 2 diabetes mellitus without complications Coding Level of Care Code Est Pt Level 4 (21835) Diagnoses Type 2 diabetes mellitus without complication, without long-term current use of insulin E11.9 Diabetes mellitus type: type 2 Diabetes mellitus intermediate manager insulin use: without intermediate manager use Diabetes mellitus complication status: without complication Essential hypertension I10 Major depressive disorder, recurrent, moderate F33.1 Obesity (BMI 30-39.9) E66.9
[2024-01-20 14:40] VITALS: BP 120/74; PULSE 75; O2SAT 96; BMI 32.2
== END 2024-01-20 15:42 | disposition home or self-care (01) ==
PROVIDERS: PCP Nurse Practitioner Family; Visit Provider Internal Medicine
DX: E11.9 Type 2 diabetes mellitus without complications (principal)
CPT/HCPCS: 83036; 99214

== ENCOUNTER 2024-03-29 15:27 | Outpatient (AMB) | payer OTHER, SELFPAY ==
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
[2024-03-29 15:54] VITALS: BP 130/80; BMI 28.5
== END 2024-03-29 16:39 | disposition home or self-care (01) ==
PROVIDERS: PCP Internal Medicine; Visit Provider Internal Medicine
DX: R35.0 Frequency of micturition (principal)
CPT/HCPCS: 81003; 99214; G2211

== ENCOUNTER 2024-05-27 07:28 | Outpatient (REF) | payer OTHER, SELFPAY ==
[2024-05-27 08:53] LABS: Basophils Percent Auto 1.1 % (0-2); Eosinophils Absolute Auto 0.1 X10*3/uL (0.0-0.4); Eosinophils Percent Auto 2.9 % (0-4); Hematocrit 38.1 % (37.0-47.0); Hemoglobin 12.3 g/dl (12.0-16.0); Imm Gran Abs Auto 0.01 X10*3/uL (0.00-0.03); Imm Gran Pct Auto 0.4 % (0.0-0.4); Lymphocytes Absolute Auto 1.5 X10*3/uL (1.2-4.9); Lymphocytes Percent Auto 53.6 % (20-40); MANUAL DIFF FLAG SCAN; Mean Corpuscular HGB Conc 32.3 g/dl (31.0-35.0); Mean Corpuscular Volume 83.7 fL (80.0-98.0); Mean Platelet Volume 11.7 fL (9.4-12.3); Monocytes Absolute Auto 0.3 X10*3/uL (0.1-1.2); Monocytes Percent Auto 10.9 % (2-11); Neutrophils Absolute Auto 0.9 x10*3/uL (2.0-8.3); Neutrophils Percent Auto 31.1 % (45-73); Platelet Count 218 X10*3/uL (160-400); Red Blood Count 4.55 X10*6/uL (4.20-5.50); Red Cell Distribution Width 13.4 % (11.0-16.0); SCAN SMEAR FLAG 1; White Blood Count 2.8 X10*3/uL (4.8-10.8)
[2024-05-27 09:00] LABS: Appearance Urine Turbid; Color Urine Dark Yellow; Glucose Urine UA Negative (Negative); Leukocyte Esterase Urine Trace (Negative); Nitrite Urine Positive (Negative); PH 8.5 (5.0-9.0); Specific Gravity - Urine 1.025 (1.005-1.025); UMIC TRIGGER UACC YES; Urine Blood Negative (Negative); Urine Ketones Trace mg/dL (Negative); Urine Protein 30 (1+) mg/dL (Neg-Trace)
[2024-05-27 09:13] LABS: Estimated Average Glucose 114 mg/dL; Hemoglobin A1c % 5.6 % (<6.0); SLIDE REVIEW VERIFIED
[2024-05-27 09:22] LABS: Bacteria Urine 2+ (None Seen); Hyaline Casts Urine 0-2 /LPF (0-2); Other Crystals Urine Present; RBC Urine 0-2 /HPF (0-2); Squamous Epithelial Cell Urine >20 /HPF (0-2); UACC Culture Trigger YES
[2024-05-27 09:58] LABS: Alanine Aminotransferase 17 U/L (0-31); Albumin Level 4.3 g/dL (3.5-5.0); Alkaline Phosphatase 84 U/L (39-117); Anion Gap 15 (12-20); Aspartate Amino Transferase 19 U/L (5-31); Bilirubin Total 0.6 mg/dL (0.0-1.0); Blood Urea Nitrogen 8 mg/dL (9-16); Calcium 9.8 mg/dL (8.4-10.2); Carbon Dioxide 28 mmol/L (22-29); Chloride 103 mmol/L (96-108); Cholesterol 229 mg/dL (<200); Estimated Glomerular Filt Rate > 60; Glucose Fasting 87 mg/dL (60-99); HDL Cholesterol 46 mg/dL (>40); LDL Cholesterol Calculated 152 mg/dL (<100); Potassium 3.9 mmol/L (3.3-5.1); Sodium 142 mmol/L (135-145); TSH reflex Free T4 0.93 uIU/mL (0.32-4.0); Triglycerides 159 mg/dL (<150); Vitamin D 25-OH Total 47.7 ng/mL (>30)
== END 2024-05-27 07:29 | disposition home or self-care (01) ==
LOC: HO.LAB 07:28
PROVIDERS: PCP Internal Medicine; Visit Provider Internal Medicine
DX: D64.9 Anemia, unspecified (principal); E11.9 Type 2 diabetes mellitus without complications; E78.00 Pure hypercholesterolemia, unspecified; E55.9 Vitamin D deficiency, unspecified
CPT/HCPCS: 36415; 80053; 80061; 81001; 81003; 82306; 83036; 84443; 85025; 87086

== ENCOUNTER 2024-05-29 15:00 | Outpatient (AMB) | payer OTHER, SELFPAY ==
--- NOTE | 2024-05-29 15:04 | A.OFFPC_ITS ---
Vital Signs 05/29/24 15:05 Height 5 ft 5 in Weight 163 lb BMI 27.1 BP 120/74 Blood Pressure Location Lt brachial Position Sitting Intake Visit Reasons: Stomach Pain Intake Note: Patient is here to follow up on Stomach pain ongoing for 3 months. Tried OTC without relief. Transmission And Coordination Engineer Required: No Hardwood Floor Finisher: Not Required per policy Accompanied by: Self / Same As Patient Allergies Penicillins Allergy (Intermediate, Verified 05/29/24 15:41) Hives Medication List - Last Reconciled 05/29/24 by Landry Palomo MD acetaminophen mg PO albuterol sulfate 90 mcg/actuation (Ventolin HFA) 2 puffs inhalation Q6H PRN cyclobenzaprine 10 mg PO BEDTIME hydrochlorothiazide 25 mg PO DAILY losartan 50 mg PO DAILY pantoprazole 40 mg PO DAILY simethicone 160 mg PO BID Tobacco use date assessed: 05/29/24 Dental Screening Dental Screen Date: 09/29/23 HPI Stomach Pain HPI Details 53-year-old female presents to the [facility] for a sick visit. Patient underwent a sleeve gastrectomy on January 09. She is having epigastric pain and constipation for the past month. No nausea or vomiting. Able to eat similar quantities of food. No fevers or chills. Patient has tried a few laxatives which have not help. [facility] Medical History (Updated 04/03/24 @ 10:38 by Landry Palomo MD) GERD (gastroesophageal reflux disease) Diabetes mellitus Essential hypertension Right knee pain History of PCOS Obesity (BMI 30-39.9) Type II diabetes mellitus Hypertension Surgical History History of gastric surgery H/O: hysterectomy History of partial hysterectomy Family History Mother No problems noted. Father No problems noted. Brother No problems noted. Brother No problems noted. Sister No problems noted. Son No problems noted. Son No problems noted. Daughter No problems noted. Social History Housing: Apartment Alcohol intake: never Patient Tobacco Use Status: Never used Tobacco e-Cigarette/Vaping Use: Never Used Second Hand Smoke Exposure: No service: No Current occupational status: employed Current occupational exposures/hazards: No Cognitive needs: No Hearing needs: No Vision needs: Yes Questionnaire Thrive Questionnaire Date Thrive assessed: 03/29/24 Are you currently unemployed and looking for a job?: No AUDIT C Alcohol Use Questionnaire (AUDIT-C) 3. How often do you have six or more drinks on one occasion?: Never Total Score: 0 ALVARO-7 AMB Questionnaire ALVARO-7 Date ALVARO - 7 assessed: 09/29/23 Source: Developed by Drs. Dennis Arreaga, Melody Jeter, Jean Marie Staley and colleagues, with an educational deandre from [employer]. Physical exam (Primary Care) Vital Signs: Last Vital Signs BP 120/74 05/29/24 15:05 BMI result Body Mass Index 27.1 Tobacco/Smoking Status: Tobacco use Status Tobacco use date assessed 05/29/24 05/29/24 15:11 Patient Tobacco Use Status Never used Tobacco 05/29/24 15:11 e-Cigarette/Vaping Use Never Used 05/29/24 15:11 Thrive Assessment: Date of Thrive Assessment Date Thrive assessed 03/29/24 05/29/24 15:11 Const General: cooperative and healthy appearing Nutritional Appearance: well nourished Orientation/consciousness: patient oriented x3 Limitations: no limitations HENMT Head: Yes normal to inspection Eyes General: appearance normal, both eyes and all related structures Neck Neck: Yes normal visual inspection Chest Chest palpation & inspection: normal palpation of entire chest wall Resp Effort & Inspection: normal respiratory effort Neuro General: patient oriented x3 Assessment and Plan Assessment & Plan (1) Abdominal pain: Code(s): R10.9 - Unspecified abdominal pain Plan: Single-view x-ray to rule out constipation has been ordered. Patient was encou raged to take Fleet enema and milk of magnesia liquid. I also added pantoprazole to the regimen. If symptoms do not improve, I encouraged the patient to follow-up here. Orders: Orders XR abdomen 1V Today R10.9 - Unspecified abdominal pain Medications: Refilled losartan 50 mg PO DAILY 90 tabs 1RF Coding Level of Care Code Est Pt Level 4 (96411) Complex EM visit Add On G2211 Diagnoses Abdominal pain R10.9
[2024-05-29 15:05] VITALS: BP 120/74; BMI 27.1
== END 2024-05-29 15:36 | disposition home or self-care (01) ==
PROVIDERS: PCP Internal Medicine; Visit Provider Internal Medicine
DX: R10.9 Unspecified abdominal pain (principal)

== ENCOUNTER → 2024-05-29 15:00 | Outpatient (BNVA) | payer OTHER, SELFPAY | PROVIDERS: PCP Internal Medicine; Visit Provider Internal Medicine | DX: R10.9 Unspecified abdominal pain (principal) | CPT/HCPCS: 99212 ==

== ENCOUNTER 2024-09-26 10:48 | Outpatient (AMB) | payer OTHER, SELFPAY ==
[2024-09-26 10:51] VITALS: BP 140/98; PULSE 105; O2SAT 100
--- NOTE | 2024-09-26 10:51 | A.OFFPC_ITS ---
Vital Signs 09/26/24 10:51 Height 5 ft 5 in BMI Reason not done Patient refused/unable BP 140/98 H Blood Pressure Location Lt brachial Position Sitting Pulse 105 H Pulse Source Pulse Oximeter Pulse Oximetry (%) 100 Oxygen Delivery Method Room Air Intake Visit Reasons: Feeling Ill Intake Note: Body is itching and has not had a BM in 8 days. Allergies Penicillins Allergy (Intermediate, Verified 09/26/24 10:51) Hives Tobacco use date assessed: 09/26/24 Dental Screening Dental Screen Date: 09/26/24 Did you have a dental visit in the last 12 months?: Yes Did you have a dental problem in the last 6 months where you did not have access to dental care?: No Was dental information given to patient?: Patient has dentist HPI Feeling Ill HPI Details The patient is a 54-year-old female presenting with generalized itching of four days' duration. The pruritus lacks an apparent rash but is pervasive throughout the body. She reports using Diphenhydramine without significant relief and acknowledges increased dryness potentially exacerbated by current antihypertensive medications. Additionally, the patient has been experiencing shoulder pain in the left shoulder, commencing in April. The pain has persisted without any apparent injury or exacerbating event. Prior analgesics and non-steroidal anti- inflammatory drugs (NSAIDs), such as Naproxen, have been utilized with minimal relief. There is a noted decrease in range of motion. The patient also reports constipation potentially linked to dietary habits and reduced hydration post-gastric sleeve surgery. The patient drinks minimal water, fortified with flavored additives, leading to insufficient hydration. Her medical history includes essential hypertension, dyslipidemia, and status post-gastric sleeve surgery from approximately one year ago. Her hypertension management includes hydrochlorothiazide, which may contribute to her symptoms of dryness. The patient acknowledges a history of low white blood cell count. There is also reported anxiety, partially managed through psychiatric support, linked to recent stressors, including professional challenges. [facility] Medical History (Updated 09/26/24 @ 11:42 by Dorothy Jacinto MD) Pruritus Type II diabetes mellitus History of PCOS Moderate major depression Anxiety Post menopausal syndrome Vaginal dryness Dark brown-colored urine Hyperlipemia Vulvar candidiasis Abnormal EKG Fatigue Vertigo Well woman exam Depression Right knee pain Cervical muscle strain Dysuria Diabetes mellitus GERD (gastroesophageal reflux disease) Essential hypertension History of PCOS Obesity (BMI 30-39.9) Hypertension Surgical History (Updated 09/26/24 @ 11:22 by Dorothy Jacinto MD) History of gastric surgery H/O: hysterectomy History of partial hysterectomy Family History Mother No problems noted. Father No problems noted. Brother No problems noted. Brother No problems noted. Sister No problems noted. Son No problems noted. Son No problems noted. Daughter No problems noted. Social History Housing: Apartment Alcohol intake: never Patient Tobacco Use Status: Never used Tobacco Tobacco use type: Cigarette e-Cigarette/Vaping Use: Never Used Second Hand Smoke Exposure: No service: No Current occupational status: employed Current occupational exposures/hazards: No Cognitive needs: No Hearing needs: No Vision needs: Yes Questionnaire PHQ-9 Over the last 2 weeks, how often have you been bothered by any of the following problems? 1. Little interest or pleasure in doing things: not at all 2. Feeling down, depressed, or hopeless: not at all 3. Trouble falling or staying asleep, or sleeping too much: not at all 4. Feeling tired or having little energy: not at all 5. Poor appetite or overeating: not at all 6. Feeling bad about yourself - or that you are a failure or have let yourself or your family down: not at all 7. Trouble concentrating on things, such as reading the newspaper or watching television: not at all 8. Moving or speaking so slowly that other people could have noticed. Or the opposite - being so fidgety or restless that you have been moving around a lot more than usual: not at all 9. Thoughts that you would be better off or of hurting yourself in some way: not at all Total score: 0 Depression Screening Interpretation: Negative Depression Screening Done: Yes 53245 - PHQ-9 Billing: Yes Source: Developed by Drs. Dennis Arreaga, Melody Jeter, Jean Marie Staley and colleagues, with an educational deandre from [employer]. Thrive Questionnaire Date Thrive assessed: 09/26/24 I am a: Patient What is your living situation today?: I have a steady place to live Within the past 12 months, did the food you bought not last and you didn't have the money to get more?: Never true Within the past 12 months, did you worry whether your food would run out before you got money to buy more?: Never true Do you have trouble paying for medicines?: No Do you have trouble getting transportation to medical appointments?: No Do you have trouble paying your heating and electricity bill?: No Do you have trouble taking care of your child, family member or friend?: No Do you have trouble with day-to-day activities such as bathing, preparing meals, shopping, managing finances, etc.?: No Are you currently unemployed and looking for a job?: No Currently or been in a relationship where the following occur: No concerns reported THRIVE Score: 0 AUDIT C Alcohol Use Questionnaire (AUDIT-C) 3. How often do you have six or more drinks on one occasion?: Never Total Score: 0 ALVARO-7 AMB Questionnaire ALVARO-7 Date ALVARO - 7 assessed: 09/26/24 Feeling nervous, anxious, or on edge: 0 = Not at all Not being able to stop or control worryin = Not at all Worrying too much about different things: 0 = Not at all Trouble relaxin = Not at all Being so restless that it is hard to sit still: 0 = Not at all Becoming easily annoyed or irritable: 0 = Not at all Feeling afraid as if something awful might happen: 0 = Not at all Total ALVARO-7 score (0-4 normal; 5-9 mild; 10-14 moderate; 15-21 severe): 0 Source: Developed by Drs. Dennis Arreaga, Melody Jeter, Jean Marie Staley and colleagues, with an educational deandre from [employer]. Physical exam (Primary Care) Vital Signs: Last Vital Signs Pulse 105 H 09/26/24 10:51 BP 140/98 H 09/26/24 10:51 Pulse Ox 100 09/26/24 10:51 Oxygen Delivery Method Room Air 09/26/24 10:51 Tobacco/Smoking Status: Tobacco use Status Tobacco use date assessed 09/26/24 09/26/24 10:53 Patient Tobacco Use Status Never used Tobacco 09/26/24 10:51 Tobacco use type Cigarette 09/26/24 10:53 e-Cigarette/Vaping Use Never Used 09/26/24 10:51 PHQ-9: PHQ-9 Score PHQ-9: Total score 0 09/26/24 11:19 Depression Screening Interpretation: Negative Thrive Assessment: Date of Thrive Assessment Date Thrive assessed 09/26/24 09/26/24 10:53 Currently or been in a relationship where the following occur: No concerns reported Const General: alert; No acute distress Eyes Conjunctivae: conjunctivae normal Resp Auscultation: clear to auscultation bilaterally Cardio Rate: regular rate Rhythm: regular rhythm GI Inspection: Yes normal to inspection Extrem General: Yes normal to inspection and No edema Office Procedures Flu Questionnaire Does the patient have a severe egg allergy?: No Does the patient have severe life threatening allergies?: No Does the patient have a fever or illness today?: No Has the patient ever had Guillain-[place] Syndrome?: No Has the patient ever had any past reaction to a flu shot?: No Immunizations Fluarix Triv 9799-5158 (PF) 45 mcg (15 mcg x 3)/0.5 mL IM syringe Performing Provider: Dorothy Jacinto MD [facility] Administered by: CELESTINA Zelaya on 09/26/24 11:52 Dose Route Admin Location Dispensed Lot Number Expiration Date [facility] Head Char Filter Tank Tender 0.5 mL IM Right Deltoid 0.5 mL [id number] 03/12/25 [id number] [employer] VIS Given Date VIS Provided VIS Publication Date 09/26/24 Single Vaccine 21 Eligibility Eligibility Date Funding Source Not [facility] Eligible 09/26/24 Private Coding Level of Care Code Est Pt Level 4 (61442) Complex EM visit Add On G2211 Diagnoses S/P laparoscopic sleeve gastrectomy Z98.84 Type 2 diabetes mellitus with hyperglycemia E11.65 Hypertension I10 Hypercholesterolemia E78.00 Major depressive disorder, recurrent, moderate F33.1 GERD (gastroesophageal reflux disease) K21.9 Constipation K59.00 Left shoulder pain M25.512 Pruritus L29.9 Breast cancer screening by mammogram Z12.31 Colon cancer screening Z12.11 Additional Codes PHQ-9 - 50207 - PHQ-9 Billing: Yes ([id number]) Assessment & Plan Assessment & Plan (1) S/P laparoscopic sleeve gastrectomy: Comment: 12/2023 Dr. Dhillon Code(s): Z98.84 - Bariatric surgery status Category: Surgical (2) Type 2 diabetes mellitus with hyperglycemia: Code(s): E11.65 - Type 2 diabetes mellitus with hyperglycemia Category: Medical (3) Hypertension: Code(s): I10 - Essential (primary) hypertension Category: Medical (4) Hypercholesterolemia: Code(s): E78.00 - Pure hypercholesterolemia, unspecified Category: Medical (5) Major depressive disorder, recurrent, moderate: Code(s): F33.1 - Major depressive disorder, recurrent, moderate Category: Medical (6) GERD (gastroesophageal reflux disease): Code(s): K21.9 - Gastro-esophageal reflux disease without esophagitis Category: Medical (7) Constipation: Code(s): K59.00 - Constipation, unspecified Category: Medical (8) Left shoulder pain: Code(s): M25.512 - Pain in left shoulder Category: Medical (9) Pruritus: Code(s): L29.9 - Pruritus, unspecified Category: Medical (10) Breast cancer screening by mammogram: Code(s): Z12.31 - Encounter for screening mammogram for malignant neoplasm of breast Category: Medical (11) Colon cancer screening: Code(s): Z12.11 - Encounter for screening for malignant neoplasm of colon Category: Medical Plan - Initiate hydroxyzine for symptomatic relief of allergic urticaria, monitoring for sedation. - Encourage increased oral hydration without high-sugar additives to address dryness and an adequate fiber intake along with psyllium supplementation to alleviate constipation. - Prescribe a topical corticosteroid cream for localized skin pruritus. - Refer to orthopedic evaluation for the persistent shoulder pain with potential for physical therapy or imaging if the motion does not improve. - Discuss cholesterol management; emphasize dietary modifications focusing on reducing saturated fats. - Reinforce anxiety management; ensure continued coordination with mental health services. - Perform routine blood work to monitor white blood cell count and kidney function. - Administer flu vaccine and educate the patient on RSV transmission prevention. Orders: Orders Comprehensive Met. Panel Today E11.65 - Type 2 diabetes mellitus with hyperglycemia Microalbumin, Random (w Creat) Today E11.65 - Type 2 diabetes mellitus with hyperglycemia Thyroid Stimulating Hormone Today E11.65 - Type 2 diabetes mellitus with hyperglycemia Vitamin D 25-OH Total Today E11.65 - Type 2 diabetes mellitus with hyperglycemia Hemoglobin A1c Today E11.65 - Type 2 diabetes mellitus with hyperglycemia Complete Blood Count Auto Diff Today E11.65 - Type 2 diabetes mellitus with hyperglycemia Creatinine Urine Today E11.65 - Type 2 diabetes mellitus with hyperglycemia Lipid Panel Today E11.65 - Type 2 diabetes mellitus with hyperglycemia, E78.00 - Pure hypercholesterolemia, unspecified Vitamin B12 and Folate Today E11.65 - Type 2 diabetes mellitus with hyperglycemia Free T4 (Free Thyroxine) Today E11.65 - Type 2 diabetes mellitus with hyperglycemia MM tomosynthesis screening BI Today Z12.31 - Encounter for screening mammogram for malignant neoplasm of breast Influenza [id number] Immunization Today Z23 - Encounter for immunization Referrals Allergy & Immunology Referral L29.9 - Pruritus, unspecified Orthopedics Referral M25.512 - Pain in left shoulder Gastroenterology Referral Z12.11 - Encounter for screening for malignant neoplasm of colon Medications: New hydroxyzine HCl 25 mg PO TID PRN 30 tabs 0RF itching L29.9 - Pruritus, unspecified triamcinolone acetonide 0.5% 1 appl topical BID 30 grams 0RF L29.9 - Pruritus, unspecified sennosides-docusate sodium 8.6-50 mg (Senna Plus) 2 tab-caps (2 x 8.6-50 mg) PO BEDTIME 60 caps 2RF K59.00 - Constipation, unspecified
--- OUTSIDE RECORDS SUMMARY | 2024-09-26 12:44 | XMS_ITS | Continuity of Care Document ---
Author Organization [facility] Address [address] [place] [address] Phone Care Team Providers Care Travertine Installer Name Role Phone El RIVERA, PhD, JUN, [...] Diagnoses Date Provider Providers Copied on Encounter [facility], [address] [place] [address], [address] [place] [address], tel:[phone] Sleep No Information El Taylor. [address] [place] [address], [address] [place] [address], . tel:[phone] Office/Outpat ient Visit, Est [facility], [address] [place], [place], [id number], tel:[phone] Morrison Earache (chief complaint) Otalgia MD Vinnie Morrison. [facility], [address] [facility] [place], [address], [place], [address], [place]. tel:[phone] Office/Outpat ient Visit, [facility], [address] [facility], [place], [place], [id number], tel:[phone] Tamiko Earache (chief complaint) OtalgiaOtalgia MD Vinnie Morrison. [facility], [address] [facility] [place], [address], [place], [address], [place]. tel:[phone] Family History Family Member Type Diagnosis Age At Onset Father Problem (finding) Daughter Problem (finding) Allergies Mother Problem (finding) Thyroid disease Father Problem (finding) out pt surgery Daughter Problem (finding) Family history of asthm a Payers Payer name Insurance type Covered libertarian ID Authoriza tion(s) [employer] MEDICAID [place] [id number] Social History Type Description Quantity Date Captured [...]
== END 2024-09-26 12:00 | disposition home or self-care (01) ==
PROVIDERS: PCP Internal Medicine; Visit Provider Internal Medicine
DX: E11.65 Type 2 diabetes mellitus with hyperglycemia (principal); F33.1 Major depressive disorder, recurrent, moderate; Z98.84 Bariatric surgery status; I10 Essential (primary) hypertension; E78.00 Pure hypercholesterolemia, unspecified; K21.9 Gastro-esophageal reflux disease without esophagitis; K59.00 Constipation, unspecified; M25.512 Pain in left shoulder; L29.9 Pruritus, unspecified; Z12.31 Encounter for screening mammogram for malignant neoplasm of breast; Z12.11 Encounter for screening for malignant neoplasm of colon; Z23 Encounter for immunization

== ENCOUNTER → 2024-09-26 10:48 | Outpatient (BNVA) | payer OTHER, SELFPAY | PROVIDERS: PCP Internal Medicine; Visit Provider Internal Medicine | DX: L29.9 Pruritus, unspecified (principal); M25.512 Pain in left shoulder; I10 Essential (primary) hypertension; E78.5 Hyperlipidemia, unspecified; E11.65 Type 2 diabetes mellitus with hyperglycemia; E78.00 Pure hypercholesterolemia, unspecified; F33.1 Major depressive disorder, recurrent, moderate; K21.9 Gastro-esophageal reflux disease without esophagitis; K59.00 Constipation, unspecified; Z23 Encounter for immunization; Z98.84 Bariatric surgery status | CPT/HCPCS: 90471; 90656; 96127; 99212 ==

== ENCOUNTER 2024-10-13 14:49 | Outpatient (REF) | payer OTHER, SELFPAY ==
--- OUTSIDE RECORDS SUMMARY | 2024-10-13 14:52 | XMS_ITS | Clinical Summary ---
Author Organization [facility] Address [address] [place] [address] Phone Care Team Providers Care Documentation Designer Name Role Phone Landry Palomo MD Primary Care Provider [phone] Allergies Active Allergy Reactions Criticality Noted Date Comments Codeine High 01/07/2024 Other Reaction(s): DIZZY AND N/V Penicillins Anaphylaxis High 12/29/2023 Medications Medication Sig Dispensed Refills Start Date End Date Status meclizine (ANTIVERT) 12.5 mg tablet - Route: Take 1 Tablet by mouth. - Oral Active losartan (COZAAR) 50 mg tablet Route: Take 1 Tablet by mouth. - Oral Active hydroCHLOROthiazide (HYDRODIURIL) 25 mg tablet Route: Take by mouth. - Oral Active amphetamine-dextroamp hetamine (ADDERALL) 20 mg tablet Route: Take by mouth. - Oral Active metformin HCl (METFORMIN ORAL) Take by mouth. Route: Take by mouth. - Oral Active WHEAT DEXTRIN ORAL Take by mouth. Route: Take 4 g by mouth daily. - Oral Active ursodioL (ACTIGALL) 300 mg capsule Route: Take 2 Capsules by mouth daily for 180 days. - Oral Active Active Problems Problem Noted Date Diagnosed Date Class 1 obesity with body ma ss index (BMI) of 31.0 to 31.9 in adult 06/20/2024 Surgical History Surgery Date Site/Laterality Comments APPENDECTOMY PROCEDURE: AR APPENDECTOMY Social History Tobacco Use Types Packs/Day Years Used Date Smoking Tobacco: Never Smokeless Tobacco: Never Alcohol Use Standard Drinks/Week Comments Yes 0 (1 standard drink = 0.6 oz pur e alcohol) Sex and Gender Information Value Date Recorded Sex Assigned at Not on file Gender Identity Not on file Sexual Orientation Not on file Job Start Date Occupation Industry Not on file Not on file Not on file Obstetrics History Last Filed Vital Signs Vital Sign Reading Time Taken Comments Blood Pressure 126/85 01/25/2024 11:56 AM EDT Pulse 96 01/25/2024 11:56 AM EDT Temperature - - Respiratory Rate - - Oxygen Saturation - - Inhaled Oxygen Concentration - - Weight 87.1 kg (192 lb) 02/04/2024 12:54 PM EDT Height 165.1 cm (5' 5 ) 01/25/2024 11:56 AM EDT Body Mass Index 31.95 01/25/2024 11:56 AM EDT Plan of Treatment Health Maintenance Due Date Last Done Comments Breast Cancer Screening 1970 DTaP,Tdap,and Td Vaccines (1 - Tdap) 1989 Hepatitis B Vaccines (1 of 3 - 19+ 3-dose series) 1989 Cervical Cancer Screening: P ap Smear 1991 Colorectal Cancer Screening: Colonoscopy 09/28/2019 Depression Screening 09/28/2019 HIV Screening 09/28/2019 Hepatitis C Screening 09/28/2019 Social Influencers of Health Screening 09/28/2019 Zoster Vaccines (1 of 2) 2020 COVID-19 Vaccine ( - 2023-2 5 season) 2024 Influenza Vaccine (#1) 2024 Cholesterol Screening (Lipid Panel) 09/10/2028 09/10/2023 HIB Vaccines Aged Out No longer eligi ble based on patient's age to complete this topic HPV Vaccines Aged Out No longer eligi ble based on patient's age to complete this topic Hepatitis A Vaccines Aged Out No long er eligible based on patient's age to complete this topic IPV Vaccines Aged Out No longer eligi ble based on patient's age to complete this topic MMR Vaccines Aged Out No longer eligi ble based on patient's age to complete this topic Meningococcal ACWY Vaccine Aged Out N o longer eligible based on patient's age to complete this topic Pneumococcal Vaccine: Pediat rics (0 to 5 Years) and At-Risk Patients (6 to 64 Years) Aged Out No longer eligi ble based on patient's age to complete this topic RSV Immunization Patients Un anum 20 months Aged Out No longer eligible b ased on patient's age to complete this topic Varicella Vaccines Aged Out No longer eligible based on patient's age to complete this topic Procedures Procedure Name Priority Date/Time Associated Diagnosis Comments LIPID PANEL Routine 09/10/2023 from Last 3 Months or Most Recently Relevant to Health Maintenance Results * (ABNORMAL) Lipid panel (09/10/2023) LDL/HDL Ratio 4 0 - 4 Triglycerides 175(A) 0 - 150 mg/dL Cholesterol 228(A) 0 - 200 mg/dL HDL 60 40 mg/dL LDL Cholesterol 133(A) 0 - 100 mg/dL Blood Venous blood specimen / Unknown Historical Provider LAB BLOOD ORDERAB LES from Last 3 Months or Most Recently Relevant to Health Maintenance Care Teams Documentation Designer Relationship Specialty Start Date End Date Landry Paolmo MD [facility] [address] [place] [address] [address] [place] [id number] PCP - General 08/12/22
--- OUTSIDE RECORDS SUMMARY | 2024-10-13 14:52 | XMS_ITS | Continuity of Care Document ---
Author Organization [facility] Address [address] [place] [address] Phone Care Team Providers Care Optometric Technologist Name Role Phone El RIVERA, PhD, JUN, [...] times every day 500 MG - Active APLENZIN (unknown strength) take 2 tablet by oral route every day in the morning Not Available - Active ADDERALL (unknown strength) take 1 tablet by oral route every day before breakfast Not Available - Active Procedures Procedure Date Office/Outpatient Visit, Est Office/Outpatient Visit, Est Advance Directives Directive Yes / No Effective Date File Name No Information Encounters Encounter Description Practice Location Reason(s) For Visit Diagnoses Date Provider Providers Copied on Encounter [facility], [address] [place] [address], [address] [place] [address], tel:[phone] Sleep No Information El Taylor. [address] [place] [address], [address] [place] [address], . tel:[phone] Office/Outpat ient Visit, Est [facility], [address], [place], [id number], tel:[phone] Morrison Earache (chief complaint) Otalgia MD Vinnie Morrison. [facility], [address] [facility], [address], [place], [address], [place]. tel:[phone] Office/Outpat ient Visit, [facility], [address] [facility], [place], [place], [id number], tel:[phone] Tamiko Earache (chief complaint) OtalgiaOtalgia MD Vinnie Morrison. [facility], [address] [facility], [address], [place], [address], [place]. tel:[phone] Family History Family Member Type Diagnosis Age At Onset Father Problem (finding) Daughter Problem (finding) Allergies Mother Problem (finding) Thyroid disease Father Problem (finding) out pt surgery Daughter Problem (finding) Family history of asthm a Payers Payer name Insurance type Covered republican ID Authoriza tion(s) [employer] MEDICAID MC [id number] Social History Type Description Quantity Date Captured [...]
== END 2024-10-13 14:50 | disposition home or self-care (01) ==
LOC: HO.MAMMO 14:49
PROVIDERS: PCP Internal Medicine; Visit Provider Internal Medicine
DX: Z12.31 Encounter for screening mammogram for malignant neoplasm of breast (principal)
CPT/HCPCS: 77063; 77067

== ENCOUNTER → 2024-10-13 15:00 | Outpatient (BNV) | payer OTHER, SELFPAY | PROVIDERS: PCP Internal Medicine; Visit Provider Internal Medicine | DX: Z12.31 Encounter for screening mammogram for malignant neoplasm of breast (principal) | CPT/HCPCS: 77063; 77067 ==

== ENCOUNTER 2024-10-25 13:39 | Outpatient (REF) | payer OTHER, SELFPAY ==
--- OUTSIDE RECORDS SUMMARY | 2024-10-25 15:02 | XMS_ITS | Clinical Summary ---
Author Organization [facility] Address [address] [place] [address] Phone Care Team Providers Care Exchange Mechanic Name Role Phone Landry Palomo MD Primary Care Provider [phone] Allergies Active Allergy Reactions Criticality Noted Date Comments Codeine High 01/07/2024 Other Reaction(s): DIZZY AND N/V Penicillins Anaphylaxis High 12/29/2023 Medications meclizine (ANTIVERT) 12.5 mg tablet - Route: Take 1 Tablet by mouth. - Oral Active losartan (COZAAR) 50 mg tablet Route: Take 1 Tablet by mouth. - Oral Active hydroCHLOROthia zide (HYDRODIURIL) 25 mg tablet Route: Take by mouth. - Oral Active amphetamine-dex troamphetamine (ADDERALL) 20 mg tablet Route: Take by [...] History Surgery Date Site/Laterality Comments APPENDECTOMY PROCEDURE: CO APPENDECTOMY Social History Tobacco Use Types Packs/Day Years Used Date Smoking Tobacco: Never Smokeless Tobacco: Never Alcohol Use Standard Drinks/Week Comments Yes 0 (1 standard drink = 0.6 oz pur e alcohol) Comments Unknown Sex and Gender Information Value Date Recorded Sex Assigned at Not on file Legal Sex Female 5:41 PM EDT Gender Identity Not on file Sexual Orientation Not on file Obstetrics History Last Filed [...] 09/28/2019 Social Influencers of Health Screening 09/28/2019 Pneumococcal Vaccine: 50+ Ye ars (1 of 1 - PCV) 2020 Zoster Vaccines (1 of 2) 2020 COVID-19 [...] patient's age to complete this topic Meningococcal B Vacine Aged Out No lo nger eligible based on patient's age to complete [...] 228(A) 0 - 200 mg/dL HDL 60 >=40 mg/dL LDL Cholesterol 133(A) 0 - 100 mg/dL Blood Venous blood specimen / Unknown us Historical Provider LAB BLOOD ORDERABLES Arcelia l Result from Last 3 Months or Most Recently Relevant to Health Maintenance Insurance [facility] Care Teams Exchange Mechanic Relationship Specialty Start Date End Date Landry Palomo MD [facility] [address] [place] [id number] [facility] - General 08/12/22
--- OUTSIDE RECORDS SUMMARY | 2024-10-25 15:02 | XMS_ITS | Continuity of Care Document ---
Author Organization [facility] Address [address] [place] [address] Phone Care Team Providers Care Armored Machine Operator Name Role Phone El RIVERA, PhD, [...] Diagnoses Date Provider Providers Copied on Encounter [facility], [address] [place] [address], [address] [place] [address], tel:[phone] Sleep No Information El Taylor. [address] [place] [address], [address] [place] [address], . tel:[phone] Office/Outpat ient Visit, Est [facility], [address] [place], [place], [id number], tel:[phone] Morrison Earache (chief complaint) Otalgia MD Vinnie Morrison. [facility], [address] [facility], [address], [place], [address], [place]. tel:[phone] Office/Outpat ient Visit, [facility], [address] [facility], [place], [place], [id number], tel:[phone] Tamiko Earache (chief complaint) OtalgiaOtalgia MD Vinnie Morrison. [facility], [address] [facility], [address], [place], [address], [place]. tel:[phone] Family History Family Member Type Diagnosis Age At Onset Father Problem (finding) Daughter Problem (finding) Allergies Mother Problem (finding) Thyroid disease Father Problem (finding) out pt surgery Daughter Problem (finding) Family history of asthm a Payers Payer name Insurance type Covered libertarian ID Authoriza tion(s) CDPHP MEDICAID MC [id number] Social History Type Description Quantity Date Captured [...]
== END 2024-10-25 13:40 | disposition home or self-care (01) ==
LOC: HO.HOSX 13:39
PROVIDERS: Visit Provider Physician Assistant
DX: Z13.89 Encounter for screening for other disorder (principal)

== ENCOUNTER 2024-12-12 10:34 | Outpatient (REF) | payer OTHER, SELFPAY ==
--- NOTE | ~2024-12-12 | XR_ITS ---
EXAMINATION: XR SHOULDER 2 OR MORE VIEWS LEFT HISTORY: M25.512 - Pain in left shoulder COMPARISON: There are no prior studies available for comparison. FINDINGS: Two views of the left shoulder are submitted. Osseous mineralization is normal. There is no fracture or dislocation. There is slight elevation of the distal clavicle could represent AC separation.. The glenohumeral and acromioclavicular joint spaces are preserved. The soft tissues are unremarkable. XR/XR shoulder LT min 2V IMPRESSION: Mild elevation of the distal clavicle which could indicate AC separation. Clinical correlation is recommended. Electronically signed by: Dennis Anguiano MD 12/13/2024 08:42 AM EDT
--- OUTSIDE RECORDS SUMMARY | 2024-12-13 12:29 | XMS_ITS | Clinical Summary ---
Author Organization [facility] Address [address] [place] [address] Phone Care Team Providers Care Curb Worker Name Role Phone Landry Palomo MD Primary Care Provider +1- [phone] Allergies Active Allergy Reactions Criticality Noted Date [...] History Surgery Date Site/Laterality Comments APPENDECTOMY PROCEDURE: [place] APPENDECTOMY Social History Tobacco Use Types Packs/Day [...] Most Recently Relevant to Health Maintenance Insurance [facility] PLAN Care Teams Curb Worker Relationship Specialty Start Date End Date Landry Palomo MD [facility]ULT [address] [place] [id number] [facility] - General 08/12/22
--- OUTSIDE RECORDS SUMMARY | 2024-12-13 12:29 | XMS_ITS | Continuity of Care Document ---
Author Organization [facility] Address [address] [place] [address] Phone Care Team Providers Care Assistant Gm Of Content & Delivery Name Role Phone El RIVERA, PhD, JUN, [...] Diagnoses Date Provider Providers Copied on Encounter [facility], [address] [place] [address], [address] [place] [address], tel:[phone] Sleep No Information El Taylor. [address] [place] [address], [address] [place] [address], . tel:[phone] Office/Outpat ient Visit, Est [facility], [address] [place], [place], [id number], tel:[phone] Morrison Earache (chief complaint) Otalgia MD Vinnie Morrison. [facility], [address] [facility], 2nd [address], [place], [address], [place]. tel:[phone] Office/Outpat ient Visit, [facility], [address] [facility], [place], [place], [id number], tel:[phone] Tamiko Earache (chief complaint) OtalgiaOtalgia MD Vinnie Morrison. [facility], [address] [facility], [address]nd Floor, [place], [address], [place]. tel:[phone] Family History Family Member Type Diagnosis Age At Onset Father Problem (finding) Daughter Problem (finding) Allergies Mother Problem (finding) Thyroid disease Father Problem (finding) out pt surgery Daughter Problem (finding) Family history of asthm a Payers Payer name Insurance type Covered democrat ID Authoriza tion(s) CDPHP MEDICAID MC [id number] Social History Type Description Quantity Date Captured [...]
== END 2024-12-12 10:35 | disposition home or self-care (01) ==
LOC: HO.HOSX 10:34
PROVIDERS: Visit Provider Orthopaedic Surgery
DX: M25.512 Pain in left shoulder (principal); M25.312 Other instability, left shoulder
CPT/HCPCS: 73030; 99202

== ENCOUNTER 2024-12-12 14:03 | Outpatient (AMB) | payer OTHER, SELFPAY ==
--- NOTE | 2024-12-12 14:19 | A.OFFVIS_ITS ---
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 Denies prior injuries or surgeries to the shoulder. She states that her pain has gotten significantly worse since last summer. The patient states that she aggravated her left shoulder while repetitively lifting her bar exam text books. She reports difficulty lifting her left hand above shoulder height. She has tried Tylenol and anti- inflammatory medicines which gave her minimal relief. Allergies Penicillins Allergy (Intermediate, Verified 12/12/24 14:21) Hives Medication List - Last Reconciled 12/12/24 by Dominik Neville MD acetaminophen mg PO albuterol sulfate 90 mcg/actuation (Ventolin HFA) 2 puffs inhalation Q6H PRN cyclobenzaprine 10 mg PO BEDTIME hydrochlorothiazide 25 mg PO DAILY hydroxyzine HCl 25 mg PO TID PRN losartan 50 mg PO DAILY pantoprazole 40 mg PO DAILY sennosides-docusate sodium 8.6-50 mg (Senna Plus) 2 tab-caps (2 x 8.6-50 mg) PO BEDTIME simethicone 160 mg PO BID tramadol 50 mg PO Q12H PRN triamcinolone acetonide 0.5% 1 appl topical BID PFSH Medical History (Updated 12/12/24 @ 14:34 by Dominik Neville MD) Pruritus Type II diabetes mellitus History of PCOS Moderate major depression Anxiety Post menopausal syndrome Vaginal dryness Dark brown-colored urine Hyperlipemia Vulvar candidiasis Abnormal EKG Fatigue Vertigo Well woman exam Depression Right knee pain Cervical muscle strain Dysuria Diabetes mellitus GERD (gastroesophageal reflux disease) Essential hypertension History of PCOS Obesity (BMI 30-39.9) Hypertension Surgical History (Updated 09/26/24 @ 11:22 by Dorothy Jacinto MD) History of gastric surgery H/O: hysterectomy History of partial hysterectomy Family History Mother No problems noted. Father No problems noted. Brother No problems noted. Brother No problems noted. Sister No problems noted. Son No problems noted. Son No problems noted. Daughter No problems noted. Social History Housing: Apartment Alcohol intake: never Patient Tobacco Use Status: Never used Tobacco Tobacco use type: Cigarette e-Cigarette/Vaping Use: Never Used Second Hand Smoke Exposure: No service: No Current occupational status: employed Current occupational exposures/hazards: No Cognitive needs: No Hearing needs: No Vision needs: Yes Physical Exam Vital Signs: BMI result Body Mass Index 27.1 Extrem Other: Left shoulder examination shows decreased active and passive range of motion when compared to her right shoulder, pain with range of motion, positive impingement signs, 4+ out of 5 strength with supraspinatus testing, tenderness over her acromioclavicular joint Results Reviewed Results Reviewed: X-rays of the patient's left shoulder show severe acromioclavicular joint narrowing, a type 2 acromion, no acute bony abnormalities Assessment & Plan Assessment & Plan (1) Rotator cuff insufficiency of left shoulder: Code(s): M25.312 - Other instability, left shoulder Category: Medical Plan Ms. Huntley presents with left shoulder pain and weakness due to impingement syndrome and possible rotator cuff tearing. Thus, I will send the patient for an MRI of her left shoulder for further evaluation. I will see her back once the MRI is completed to discuss the findings and treatment options. Feel free to call me at any time should questions regarding her orthopedic management arise. I spent 20 minutes in reviewing the patient's records and imaging studies, seeing the patient and documenting in the medical record. Orders: Orders XR shoulder LT min 2V 12/12/24 M25.512 - Pain in left shoulder MR shoulder LT wo con 12/12/24 M25.312 - Other instability, left shoulder Medications: New tramadol 50 mg PO Q12H PRN 30 tabs 0RF pain Coding Level of Care Code New Pt Level 3 (92004) Complex EM visit Add On G2211 Diagnoses Rotator cuff insufficiency of left shoulder M25.312
[2024-12-12 14:22] VITALS: BMI 27.1
--- OUTSIDE RECORDS SUMMARY | 2024-12-12 16:48 | XMS_ITS | Continuity of Care Document ---
Author Organization [facility] Address [address] [place] [address] Phone Care Team Providers Care Field Professional Name Role Phone El RIVERA, PhD, JUN, [...] Diagnoses Date Provider Providers Copied on Encounter [facility], [address] [place] [address], [address] [place] [address], tel:[phone] Sleep No Information El Taylor. [address] [place] [address], [address] [place] [address], . tel:[phone] Office/Outpat ient Visit, Est [facility], [address] [place], [place], [id number], tel:[phone] Morrison Earache (chief complaint) Otalgia MD Vinnie Morrison. [facility], [address] [facility], 2nd [address], [place], [address], [place]. tel:[phone] Office/Outpat ient Visit, [facility], [address] [facility], [place], [place], [id number], tel:[phone] Tamiko Earache (chief complaint) OtalgiaOtalgia MD Vinnie Morrison. [facility], [address] [facility], [address]nd [address], [place], [address], [place]. tel:[phone] Family History Family Member Type Diagnosis Age At Onset Father Problem (finding) Daughter Problem (finding) Allergies Mother Problem (finding) Thyroid disease Father Problem (finding) out pt surgery Daughter Problem (finding) Family history of asthm a Payers Payer name Insurance type Covered libertarian ID Authoriza tion(s) CDPHP MEDICAID MC [id number] Social History Type Description Quantity Date Captured [...]
--- OUTSIDE RECORDS SUMMARY | 2024-12-12 16:48 | XMS_ITS | Clinical Summary ---
Author Organization [facility] Address [address] [place] [address] Phone Care Team Providers Care Alarm Installer Name Role Phone Landry Palomo MD Primary Care Provider [phone] Allergies Active Allergy Reactions Criticality Noted Date [...] History Surgery Date Site/Laterality Comments APPENDECTOMY PROCEDURE: [place] APPENDECTOMY Social History Tobacco Use Types Packs/Day [...] Most Recently Relevant to Health Maintenance Insurance [facility] Care Teams Alarm Installer Relationship Specialty Start Date End Date Landry Palomo MD [facility] [address] [place] [id number] [facility] - General 08/12/22
== END 2024-12-12 14:37 | disposition home or self-care (01) ==
LOC: HO.HOS 14:03
PROVIDERS: PCP Internal Medicine; Visit Provider Orthopaedic Surgery
DX: M25.312 Other instability, left shoulder (principal)
CPT/HCPCS: 99203; G2211

== ENCOUNTER → 2024-12-12 14:11 | Outpatient (BNV) | payer OTHER, SELFPAY | PROVIDERS: Visit Provider Radiology Diagnostic Radiology | DX: M25.512 Pain in left shoulder (principal) | CPT/HCPCS: 73030 ==

== ENCOUNTER 2024-12-18 19:53 | Outpatient (REF) | payer OTHER, SELFPAY ==
--- NOTE | ~2024-12-18 | MR_ITS ---
EXAMINATION: MRI LEFT SHOULDER WITHOUT CONTRAST HISTORY: M25.312 - Other instability, left shoulder COMPARISON: There are no prior studies for comparison. TECHNIQUE: Coronal T1, T2, and fat suppressed T2, axial fat suppressed proton density, and sagittal T2 weighted MR images of the left shoulder were obtained. FINDINGS: Bone Marrow: There are cystic foci in the humeral head. Bone marrow signal intensity is otherwise normal. Joint effusion: There is no glenohumeral joint effusion. Glenohumeral joint: The glenohumeral joint is maintained. AC joint: The AC joint is unremarkable. The coracoclavicular ligament is intact. Supraspinatus muscle/tendon: There is mild increased T2 signal intensity within the supraspinatus tendon, consistent with tendinosis. There is irregularity of the joint surface of the distal supraspinatus tendon just proximal to its insertion on the greater tuberosity of the humerus, consistent with a partial tear. No definite full-thickness tear is seen. Normal muscle bulk. Infraspinatus muscle/tendon: The infraspinatus tendon is intact. Normal muscle bulk. Teres minor muscle/tendon: The teres minor tendon is intact. Normal muscle bulk. Subscapularis muscle/tendon: The subscapularis tendon is intact. Normal muscle bulk. Biceps tendon: The biceps tendon is intact and normally located. Glenoid labrum: The glenoid labrum is grossly unremarkable in appearance, although evaluation is limited by lack of a joint effusion. Other findings: None MR/MR shoulder LT wo con IMPRESSION: Supraspinatus tendinosis. Findings consistent with a partial joint surface tear of the distal supraspinatus tendon. No evidence of a full-thickness tear. Electronically signed by: Dennis Anguiano MD 12/19/2024 11:25 AM EDT
--- OUTSIDE RECORDS SUMMARY | 2024-12-18 19:55 | XMS_ITS | Clinical Summary ---
Author Organization [facility] Address [address] [place] [address] Phone Care Team Providers Care Marine Engine Machinist Name Role Phone Landry Palomo MD Primary Care Provider [phone]- [phone] Allergies Active Allergy Reactions Criticality Noted Date [...] History Surgery Date Site/Laterality Comments APPENDECTOMY PROCEDURE: [place] APPENDECTOMY Social History Tobacco Use Types Packs/Day [...] - 2023-2 5 season) 2024 Influenza Vaccine (Season Ended) 2025 Cholesterol Screening (Lipid Panel) 09/10/2028 09/10/2023 HIB [...] age to complete this topic Meningococcal B Vaccine Aged Out No l onger eligible based on patient's age to complete [...] Most Recently Relevant to Health Maintenance Insurance [facility] PLAN Care Teams Marine Engine Machinist Relationship Specialty Start Date End Date Landry Palomo MD [facility] [address] [place] [address] DR [address] [facility] [id number] PCP - General 08/12/22
--- OUTSIDE RECORDS SUMMARY | 2024-12-18 19:55 | XMS_ITS | Continuity of Care Document ---
Author Organization [facility] Address [address] [place] [address] Phone Care Team Providers Care High School Chemistry Teacher Name Role Phone El RIVERA, PhD, JUN, [...] Diagnoses Date Provider Providers Copied on Encounter [facility], [address] [place] [address], [address] [place] [address], tel:[phone] Sleep No Information El Taylor. [address] [place] [address], [address] [place] [address], . tel:[phone] Office/Outpat ient Visit, Est [facility], [address] [place], [place], [id number], tel:[phone] Morrison Earache (chief complaint) Otalgia MD Vinnie Morrison. [facility], [address] [facility], [address]nd [address], [place], [address], [place]. tel:[phone] Office/Outpat ient Visit, [facility], [address] [facility], [place], [place], [id number], tel:[phone] Tamiko Earache (chief complaint) OtalgiaOtalgia MD Vinnie Morrison. [facility], [address] [facility], [address] Floor, [place], [address], [place]. tel:[phone] Family History Family Member Type Diagnosis Age At Onset Father Problem (finding) Daughter Problem (finding) Allergies Mother Problem (finding) Thyroid disease Father Problem (finding) out pt surgery Daughter Problem (finding) Family history of asthm a Payers Payer name Insurance type Covered libertarian ID Authoriza tion(s) CDPHP MEDICAID MC [id number] Social History Type Description Quantity Date Captured [...]
== END 2024-12-18 19:54 | disposition home or self-care (01) ==
LOC: HO.MRI 19:53
PROVIDERS: Visit Provider Orthopaedic Surgery
DX: M25.312 Other instability, left shoulder (principal)
CPT/HCPCS: 73221

== ENCOUNTER → 2024-12-18 20:04 | Outpatient (BNV) | payer OTHER, SELFPAY | PROVIDERS: Visit Provider Radiology Diagnostic Radiology | DX: M67.814 Other specified disorders of tendon, left shoulder (principal) | CPT/HCPCS: 73221 ==

== ENCOUNTER 2024-12-21 13:12 | Outpatient (AMB) | payer OTHER, SELFPAY ==
--- NOTE | 2024-12-21 13:17 | A.OFFVIS_ITS ---
Vital Signs 12/21/24 13:18 Height 5 ft 5 in Weight 163 lb BMI 27.1 Intake Visit Reasons: OV-Left shoulder MRI review Intake Note: Felix is a 54 year old right hand dominant female who presents with complaints of left shoulder pain. Denies prior injuries or surgeries to the shoulder. She states that her pain has gotten significantly worse since last summer. The patient states that she aggravated her left shoulder while repetitively lifting her bar exam text books. She has tried Tylenol and anti- inflammatory medicines which gave her minimal relief. She wishes to hold off on surgery if at all possible. Allergies Penicillins Allergy (Intermediate, Verified 12/21/24 13:19) Hives Medication List - Last Reconciled 12/21/24 by Dominik Neville MD acetaminophen mg PO albuterol sulfate 90 mcg/actuation (Ventolin HFA) 2 puffs inhalation Q6H PRN cyclobenzaprine 10 mg PO BEDTIME hydrochlorothiazide 25 mg PO DAILY hydroxyzine HCl 25 mg PO TID PRN losartan 50 mg PO DAILY pantoprazole 40 mg PO DAILY sennosides-docusate sodium 8.6-50 mg (Senna Plus) 2 tab-caps (2 x 8.6-50 mg) PO BEDTIME simethicone 160 mg PO BID tramadol 50 mg PO Q12H PRN triamcinolone acetonide 0.5% 1 appl topical BID PFSH Medical History (Updated 12/21/24 @ 15:30 by Dominik Neville MD) Pruritus Type II diabetes mellitus History of PCOS Moderate major depression Anxiety Post menopausal syndrome Vaginal dryness Dark brown-colored urine Hyperlipemia Vulvar candidiasis Abnormal EKG Fatigue Vertigo Well woman exam Depression Right knee pain Cervical muscle strain Dysuria Diabetes mellitus GERD (gastroesophageal reflux disease) Essential hypertension History of PCOS Obesity (BMI 30-39.9) Hypertension Surgical History History of gastric surgery H/O: hysterectomy History of partial hysterectomy Family History Mother No problems noted. Father No problems noted. Brother No problems noted. Brother No problems noted. Sister No problems noted. Son No problems noted. Son No problems noted. Daughter No problems noted. Social History Housing: Apartment Alcohol intake: never Patient Tobacco Use Status: Never used Tobacco Tobacco use type: Cigarette e-Cigarette/Vaping Use: Never Used Second Hand Smoke Exposure: No service: No Current occupational status: employed Current occupation: rt handed Current occupational exposures/hazards: No Cognitive needs: No Hearing needs: No Vision needs: Yes Physical Exam Vital Signs: BMI result Body Mass Index 27.1 Extrem Other: Left shoulder examination shows slightly decreased range of motion when compared to her right shoulder, 4+ out of 5 strength with supraspinatus testing, positive impingement signs Office Procedures AMB Joint Injection/Aspiration Joint Injection/Aspiration Primary Site: left shoulder Prep: site was prepped using aseptic technique Injected: 40 mg of, DepoMedrol and 1% plain lidocaine Procedure: The patient tolerated the procedure well Coding 41403 - Large joint Procedure code (CPT) selection complete Results Reviewed Results Reviewed: MRI of the patient's left shoulder shows moderate acromioclavicular joint narrowing, a type 2 acromion, signal change within the supraspinatus tendon most likely due to rotator cuff tendinitis Assessment & Plan Assessment & Plan (1) Impingement syndrome of left shoulder: Code(s): M75.42 - Impingement syndrome of left shoulder Category: Medical Plan Ms. Huntley presents with left shoulder pain due to impingement syndrome and rotator cuff tendinitis. The risks and benefits of a left shoulder cortisone injection were discussed at length with the patient. The patient wished to proceed. She tolerated the injection well. She will continue with her stretching program to prevent stiffness. She will contact me prior to her follow-up appointment in 3 months should any questions or concerns arise. The patient also has pain at the bases of both of her thumbs possibly due to CMC joint arthritis. Thus, I will have her evaluated by our hand service. She will follow-up as instructed. I spent 21 minutes in reviewing the patient's records and imaging studies, seeing the patient and documenting in the medical record. Orders: Orders AMB Joint Injection/Aspiration Today M75.42 - Impingement syndrome of left shoulder Coding Level of Care Code Est Pt Level 3 (92753) Complex EM visit Add On G2211 Diagnoses Impingement syndrome of left shoulder M75.42 CPT Codes Coding - 06557 Large joint: 02847 - Large joint ([id number])
[2024-12-21 13:18] VITALS: BMI 27.1
--- OUTSIDE RECORDS SUMMARY | 2024-12-21 15:55 | XMS_ITS | Clinical Summary ---
Author Organization [facility] Address [address] [place] [address] Phone Care Team Providers Care Mortician Supplies Sales Representative Name Role Phone Landry Palomo MD Primary Care Provider [phone]- [phone] Allergies Active Allergy Reactions Criticality Noted Date [...] History Surgery Date Site/Laterality Comments APPENDECTOMY PROCEDURE: [place] APPENDECTOMY Social History Tobacco Use Types Packs/Day [...] Most Recently Relevant to Health Maintenance Insurance [facility]AN Care Teams Mortician Supplies Sales Representative Relationship Specialty Start Date End Date Landry Palomo MD [facility] [place] [facility] [address] [place] [address] [address] [facility] [id number] PCP - General 08/12/22
--- OUTSIDE RECORDS SUMMARY | 2024-12-21 15:55 | XMS_ITS | Continuity of Care Document ---
Author Organization [facility] Address [address] [place] [address] Phone Care Team Providers Care Deckhand Maintenance Name Role Phone El RIVERA, PhD, JUN, [...] Diagnoses Date Provider Providers Copied on Encounter [facility], [address] [place] [address], [address] [place] [address], tel:[phone] Sleep No Information El Taylor. [address] [place] [address], [address] [place] [address], . tel:[phone] Office/Outpat ient Visit, Est [facility], [address] [place], [place], [id number], tel:[phone] Morrison Earache (chief complaint) Otalgia MD Vinnie Morrison. [facility], [address] [facility], [address]nd [address], [place], [address], [place]. tel:[phone] Office/Outpat ient Visit, [facility], [address] [facility], [place], [place], [id number], tel:[phone] Tamiko Earache (chief complaint) OtalgiaOtalgia MD Vinnie Morrison. [facility], [address] [facility], [address]nd [address], [place], [address], [place]. tel:[phone] Family History Family Member Type Diagnosis Age At Onset Father Problem (finding) Daughter Problem (finding) Allergies Mother Problem (finding) Thyroid disease Father Problem (finding) out pt surgery Daughter Problem (finding) Family history of asthm a Payers Payer name Insurance type Covered alliance party ID Authoriza tion(s) CDPHP MEDICAID MC [id number] Social History Type Description Quantity Date Captured [...]
== END 2024-12-21 13:39 | disposition home or self-care (01) ==
LOC: HO.HOS 13:12
PROVIDERS: Visit Provider Orthopaedic Surgery
DX: M75.42 Impingement syndrome of left shoulder (principal)
CPT/HCPCS: 20610; 99213

== ENCOUNTER → 2024-12-21 13:12 | Outpatient (BNVA) | payer OTHER, SELFPAY | PROVIDERS: Visit Provider Orthopaedic Surgery | DX: M75.42 Impingement syndrome of left shoulder (principal); M25.512 Pain in left shoulder | CPT/HCPCS: 20610; 99212; J1010; J2003 ==

== ENCOUNTER 2024-12-29 15:53 | Outpatient (AMB) | payer OTHER, SELFPAY ==
--- NOTE | 2024-12-29 15:56 | MHC.PC.OV ---
Vital Signs 12/29/24 15:57 Height 5 ft 5 in BMI Reason not done Patient refused/unable BP 138/78 Blood Pressure Location Lt brachial Position Sitting Temp 97.1 F Temp Source Temporal Artery Scan Intake Visit Reasons: asthma flare up Intake Note: Patient is here to follow up on Asthma flare up. Continuous Improvement Black Belt Required: No Web Content Director: Not Required per policy Accompanied by: Self / Same As Patient Allergies Penicillins Allergy (Intermediate, Verified 12/29/24 15:57) Hives Medication List - Last Reconciled 12/29/24 by Dorothy Jacinto MD acetaminophen mg PO albuterol sulfate 90 mcg/actuation (Ventolin HFA) 2 puffs inhalation Q6H PRN fexofenadine (Shakira Allergy) 180 mg PO DAILY hydrochlorothiazide 25 mg PO DAILY hydroxyzine HCl 25 mg PO TID PRN losartan 50 mg PO DAILY pantoprazole 40 mg PO DAILY sennosides-docusate sodium 8.6-50 mg (Senna Plus) 2 tab-caps (2 x 8.6-50 mg) PO BEDTIME triamcinolone acetonide 0.5% 1 appl topical BID Tobacco use date assessed: 12/29/24 Dental Screening Dental Screen Date: 09/26/24 [facility] Medical History (Updated 12/29/24 @ 16:17 by Dorothy Jacinto MD) Pruritus Type II diabetes mellitus History of PCOS Moderate major depression Anxiety Post menopausal syndrome Vaginal dryness Dark brown-colored urine Hyperlipemia Vulvar candidiasis Abnormal EKG Fatigue Vertigo Well woman exam Depression Right knee pain Cervical muscle strain Dysuria Diabetes mellitus GERD (gastroesophageal reflux disease) Essential hypertension History of PCOS Obesity (BMI 30-39.9) Hypertension Surgical History History of gastric surgery H/O: hysterectomy History of partial hysterectomy Family History Mother No problems noted. Father No problems noted. Brother No problems noted. Brother No problems noted. Sister No problems noted. Son No problems noted. Son No problems noted. Daughter No problems noted. Social History Housing: Apartment Alcohol intake: never Patient Tobacco Use Status: Never used Tobacco Tobacco use type: Cigarette e-Cigarette/Vaping Use: Never Used Second Hand Smoke Exposure: No service: No Current occupational status: employed Current occupation: rt handed Current occupational exposures/hazards: No Cognitive needs: No Hearing needs: No Vision needs: Yes Questionnaire Thrive Questionnaire Date Thrive assessed: 09/26/24 ALVARO-7 AMB Questionnaire ALVARO-7 Date ALVARO - 7 assessed: 09/26/24 Source: Developed by Drs. Dennis Arreaga, Melody Jeter, Jean Marie Staley and colleagues, with an educational deandre from [employer]. Physical exam (Primary Care) Vital Signs: Last Vital Signs Temp 97.1 F 12/29/24 15:57 BP 138/78 12/29/24 15:57 Tobacco/Smoking Status: Tobacco use Status Tobacco use date assessed 12/29/24 12/29/24 16:04 Patient Tobacco Use Status Never used Tobacco 12/29/24 16:04 Tobacco use type Cigarette 12/29/24 16:04 e-Cigarette/Vaping Use Never Used 12/29/24 16:04 Thrive Assessment: Date of Thrive Assessment Date Thrive assessed 09/26/24 12/29/24 16:04 Const General: alert; No acute distress Eyes Conjunctivae: conjunctivae normal Resp Auscultation: clear to auscultation bilaterally Cardio Rate: regular rate Rhythm: regular rhythm GI Inspection: Yes normal to inspection Extrem General: Yes normal to inspection and No edema Coding Level of Care Code Est Pt Level 4 (60263) Diagnoses Impingement syndrome of left shoulder M75.42 Hypercholesterolemia E78.00 S/P laparoscopic sleeve gastrectomy Z98.84 Hypertension I10 Cough R05.9 Assessment & Plan Assessment & Plan (1) Impingement syndrome of left shoulder: Code(s): M75.42 - Impingement syndrome of left shoulder Category: Medical Plan: Patient has seen Orthopedics and has had injections (2) Hypercholesterolemia: Code(s): E78.00 - Pure hypercholesterolemia, unspecified Category: Medical Plan: Avoid fried foods, chicken skin, eggs, butter margarine, pastries and meat. Be it pork or beef they have a lot of cholesterol LDL goal of less than 130 and triglyceride of less than 150 (3) S/P laparoscopic sleeve gastrectomy: Comment: 12/2023 Dr. Dhillon Code(s): Z98.84 - Bariatric surgery status Category: Surgical (4) Hypertension: Code(s): I10 - Essential (primary) hypertension Category: Medical Plan: Continue with blood pressure medication. Decrease salt intake and exercise on losartan 50 mg once a day hydrochlorothiazide 25 mg once a day (5) Cough: Code(s): R05.9 - Cough, unspecified Category: Medical Plan History of Present Illness The patient is a 54-year-old female presenting with acute respiratory symptoms, allergy-related issues, and persistent shoulder pain. She reports a history of nocturnal coughing and chest tightness over the past week, often relieved by the use of her inhaler. The patient's current allergic episodes include nocturnal itching and hives, treated with Claritin and topical steroids. This past medical history includes shoulder impingement syndrome with tendinosis, managed through an injection, and multiple chronic conditions like hypertension and hypercholesterolemia. Her recent medical evaluations include a shoulder MRI showing partial tendon tears and blood work indicating mild leukopenia. These findings are indicative of her ongoing health management needs. Health Maintenance - Monitoring of blood pressure with losartan 50 mg and hydrochlorothiazide 25 mg daily. - Monitoring elevated cholesterol with a goal of LDL <130 mg/dL and triglycerides <150 mg/dL. - Glycemic control with current Hemoglobin A1c at 5.6%. - Assessment and follow-up on mild leukopenia with repeat blood work as needed. - Encouragement to use moisturizers like Cetaphil or Aveeno to manage skin dryness and prevent allergic reactions. Social History - No pets at home, eliminating pet-related allergy triggers. - Recent acquisition of a new mattress, with reported nighttime itching in contact with the bed. - Takes [id number] allergy medications and topical creams for symptoms. Review of Systems - Respiratory: Reports nightly coughing, chest tightness, wheezing, and use of an inhaler. - Dermatologic: Reports itching and hives, particularly on limbs and back at night. - Musculoskeletal: Reports persistent left shoulder pain and tenderness. - General: Denies snoring; reports feeling tightness in the chest and exacerbated nighttime symptoms. Physical Exam - General- Patient appears to be in no acute distress at this time. - HEENT- Oral examination normal, no throat abnormalities detected upon inspection. - Respiratory- Chest exam immediately post-consultation unremarkable; lung sounds not specified. - Skin- Observation for hives as reported by the patient, no active lesions noted. Results - Labs: Normal blood count in prior test with mild leukopenia (WBC 2.8). - Imaging: MRI confirmed supraspinatus tendinosis with a partial tear, left shoulder. Plan I recommend taking Shakira to assist with allergy management and considering additional diagnostic evaluations such as lung function testing and chest X-rays if respiratory symptoms continue. Thicker moisturizers like Cetaphil or Aveeno will help with skin dryness. Monitoring and management of chronic conditions will persist, including maintaining current hypertension and cholesterol management medications. Further follow-up with an molding cutter or orthopedics may be necessary should symptoms persist or worsen. Repeat blood work monitoring is advised for leukopenia. Patient was informed and verbally consented to the use of an ambient scribe for clinic note documentation during this visit. Discussion Notes In discussions with the patient, we addressed her concern of nocturnal coughing and allergic symptoms, recommending Shakira to improve symptom management and outlined the potential for further investigation into lung function tests or chest X-rays if symptoms persist. We reviewed her current management of chronic conditions, adjusting medications were necessary. For ongoing skin reactions, I have emphasized the importance of moisturizing and avoiding known allergens. The potential need for an molding cutter consultation was discussed to delve deeper into persistent allergy issues. Additionally, repeat blood work is necessary to follow up on mild leukopenia. Referral to orthopedics remains an option if shoulder pain symptoms do not alleviate. Patient Instructions - Take Shakira for allergy relief. - Use Cetaphil or Aveeno moisturizer daily. - Avoid allergens where possible and monitor triggers. - Continue medications for high blood pressure and cholesterol as prescribed. - Schedule follow-up blood work. - Contact the office if respiratory symptoms persist or worsen. - Consider orthopedic follow-up if shoulder pain continues. - Keep a record of allergy symptoms and possible triggers. - Seek medical advice promptly if new symptoms arise. Orders: Orders PFT pulmonary function test Today R05.9 - Cough, unspecified XR chest 2V Today R05.9 - Cough, unspecified Rast Allergen Today R05.9 - Cough, unspecified Referrals Allergy & Immunology Referral R05.9 - Cough, unspecified Medications: New fexofenadine (Shakira Allergy) 180 mg PO DAILY 30 tabs 3RF R05.9 - Cough, unspecified Refilled losartan 50 mg PO DAILY 90 tabs 1RF R05.9 - Cough, unspecified triamcinolone acetonide 0.5% 1 appl topical BID 45 grams 0RF L29.9 - Pruritus, unspecified albuterol sulfate 90 mcg/actuation (Ventolin HFA) 2 puffs inhalation Q6H PRN 8.5 grams 0RF shortness of breath or wheezing R05.9 - Cough, unspecified hydroxyzine HCl 25 mg PO TID PRN 60 tabs 0RF itching L29.9 - Pruritus, unspecified hydrochlorothiazide 25 mg PO DAILY 90 tabs 1RF I10 - Essential (primary) hypertension pantoprazole 40 mg PO DAILY 90 tabs 2RF R05.9 - Cough, unspecified
--- OUTSIDE RECORDS SUMMARY | 2024-12-29 15:56 | XMS_ITS | Clinical Summary ---
Author Organization [facility] Address [address] [place] [address] Phone Care Team Providers Care Machine Setter Automatic Name Role Phone Landry Palomo MD Primary Care Provider +1- [phone] Allergies Active Allergy Reactions Criticality Noted Date [...] Most Recently Relevant to Health Maintenance Insurance [facility] HE[facility] PLAN Care Teams Machine Setter Automatic Relationship Specialty Start Date End Date Landry Palomo MD [facility] [place] [facility] [address] [place] [address] [address] [facility] [id number] PCP - General 08/12/22
[2024-12-29 15:57] VITALS: BP 138/78; TEMP 36.2
== END 2024-12-29 16:33 | disposition home or self-care (01) ==
LOC: HO.HMCH 15:53
PROVIDERS: Visit Provider Internal Medicine
DX: M75.42 Impingement syndrome of left shoulder (principal); E78.00 Pure hypercholesterolemia, unspecified; Z98.84 Bariatric surgery status; I10 Essential (primary) hypertension; R05.9 Cough, unspecified

== ENCOUNTER → 2024-12-29 15:53 | Outpatient (BNVA) | payer OTHER, SELFPAY | PROVIDERS: Visit Provider Internal Medicine | DX: R05.9 Cough, unspecified (principal); M75.42 Impingement syndrome of left shoulder; E78.00 Pure hypercholesterolemia, unspecified; I10 Essential (primary) hypertension; Z79.899 Other long term (current) drug therapy; Z98.84 Bariatric surgery status | CPT/HCPCS: 99212 ==

== ENCOUNTER 2025-01-04 14:12 | Outpatient (AMB) | payer OTHER, SELFPAY ==
--- NOTE | 2025-01-04 14:17 | A.OFFPC_ITS ---
Vital Signs 01/04/25 14:18 Height 5 ft 5 in Weight 158 lb BMI 26.3 BP 130/82 Blood Pressure Location Lt brachial Position Sitting Pulse 65 Pulse Source Pulse Oximeter Temp 97.2 F Temp Source Temporal Artery Scan Pulse Oximetry (%) 94 Oxygen Delivery Method Room Air Intake Visit Reasons: Annual Exam Intake Note: Patient is here today for a physical. Derrick Man Required: No Senior Environmental Scientist: Not Required per policy Accompanied by: Self / Same As Patient Allergies Penicillins Allergy (Intermediate, Verified 01/04/25 14:41) Hives Medication List - Last Reconciled 01/04/25 by Marla Bower PA-C acetaminophen mg PO albuterol sulfate 90 mcg/actuation (Ventolin HFA) 2 puffs inhalation Q6H PRN fexofenadine (Shakira Allergy) 180 mg PO DAILY hydrochlorothiazide 25 mg PO DAILY hydroxyzine HCl 25 mg PO TID PRN losartan 50 mg PO DAILY meclizine 25 mg PO TID pantoprazole 40 mg PO DAILY sennosides-docusate sodium 8.6-50 mg (Senna Plus) 2 tab-caps (2 x 8.6-50 mg) PO BEDTIME sumatriptan succinate (Imitrex) take 1 tab at onset of headache; if no relief may repeat 1 tab after at least 2 hrs; max = 4 tabs/24 hr PO triamcinolone acetonide 0.5% 1 appl topical BID Tobacco use date assessed: 01/04/25 Dental Screening Dental Screen Date: 09/26/24 [facility] Annual Exam HPI Details The patient is a 54-year-old female presenting for her annual physical examination and ongoing management of chronic conditions. She has a history of gastroesophageal reflux disease (GERD), asthma, and allergic rhinitis, which are being managed with appropriate medications. No recent exacerbations have been reported for asthma or allergic reactions. The patient has essential hypertension, regularly managed with hyd rochlorothiazide and losartan. She suffers from insomnia associated with suspected menopause and reports frequent and severe headaches that are affecting her quality of life significantly, often accompanied by dizziness. She reports she is currently taking meclizine that her mom has sent her from [place] intermittently and it helps her vertigo/dizziness. She is interested in hormone replacement therapy and would like to be referred to family practice physician. Reports that when she went to the family practice physician at [facility] she was not offered hormone replacement therapy. She would like a referral to a new family practice physician. She underwent gastric sleeve surgery for weight management in the past, although she is concerned about recent weight gain. She denies unintentional weight loss or significant gastrointestinal issues. She would like a referral to weight management again. She reportedly has short-term memory difficulties, previously using alprazolam for anxiety, which she has discontinued due to adverse effects on memory. 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 She reports increased anxiety due to this would be the 7 time she takes her bar exam and she has not passed it. 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 She denies any SI or HI any auditory visualizations thoughts of self-injury. She currently is seen a therapist through a telehealth although she believes she may need to see someone in person. She does not want to stay any longer today due to she has a headache and would like to just go home and relax. She does not want to speak to a social media director at this time although she is agreeable for me putting in a referral. 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 - Housing: Lives alone, originally from [place], mainly relies on friends made locally. - Education: Attended law school. - Family Status: Close relationship with family, especially her mother. - Nutritional Intake: Concerns about nydia ght gain post gastric sleeve, expressed interest in maintaining current weight. - Exercise: No specific details provided , but concerns about maintaining weight imply physical activity considerations. - Functional Status: Generally independe nt but stressed due to exam preparations; history of insomnia affecting daily functioning. [facility] Medical History (Updated 01/04/25 @ 15:13 by Marla Bower PA-C) Overweight with body mass index (BMI) of 26 to 26.9 in adult History of mammogram (~10/13/24) Chronic headaches Memory changes Hormone replacement therapy Cervical cancer screening (~03/18/22) Pruritus Type II diabetes mellitus History of PCOS Moderate major depression Anxiety Post menopausal syndrome Vaginal dryness Dark brown-colored urine Hyperlipemia Vulvar candidiasis Abnormal EKG Fatigue Vertigo Well woman exam Depression Right knee pain Cervical muscle strain Dysuria Diabetes mellitus GERD (gastroesophageal reflux disease) Essential hypertension History of PCOS Obesity (BMI 30-39.9) Hypertension Surgical History History of gastric bypass History of gastric surgery H/O: hysterectomy History of partial hysterectomy Family History Mother No problems noted. Father No problems noted. Brother No problems noted. Brother No problems noted. Sister No problems noted. Son No problems noted. Son No problems noted. Daughter No problems noted. Social History Housing: Apartment Alcohol intake: never Patient Tobacco Use Status: Never used Tobacco Tobacco use type: Cigarette e-Cigarette/Vaping Use: Never Used Second Hand Smoke Exposure: No service: No Current occupational status: employed Current occupation: rt handed Current occupational exposures/hazards: No Cognitive needs: No Hearing needs: No Vision needs: Yes Questionnaire PHQ-9 Over the last 2 weeks, how often have you been bothered by any of the following problems? 1. Little interest or pleasure in doing things: several days 2. Feeling down, depressed, or hopeless: several days 3. Trouble falling or staying asleep, or sleeping too much: nearly every day 4. Feeling tired or having little energy: nearly every day 5. Poor appetite or overeating: nearly every day 6. Feeling bad about yourself - or that you are a failure or have let yourself or your family down: nearly every day 7. Trouble concentrating on things, such as reading the newspaper or watching television: nearly every day 8. Moving or speaking so slowly that other people could have noticed. Or the opposite - being so fidgety or restless that you have been moving around a lot more than usual: nearly every day 9. Thoughts that you would be better off or of hurting yourself in some way: more than half the days Total score: 22 Depression Screening Interpretation: Positive Depression Screening Follow-up: Existing condition and In treatment Depression Screening Done: Yes 45866 - PHQ-9 Billing: Yes Source: Developed by Drs. Dennis Arreaga, Melody Jeter, Jean Marie Staley and colleagues, with an educational deandre from [employer]. Thrive Questionnaire Date Thrive assessed: 09/26/24 I am a: Patient What is your living situation today?: I have a place to live, but I am worried about losing it in the future Within the past 12 months, did the food you bought not last and you didn't have the money to get more?: Sometimes True Within the past 12 months, did you worry whether your food would run out before you got money to buy more?: Sometimes True Do you have trouble paying for medicines?: No Do you have trouble getting transportation to medical appointments?: No Do you have trouble paying your heating and electricity bill?: Yes Do you have trouble taking care of your child, family member or friend?: No Do you have trouble with day-to-day activities such as bathing, preparing meals, shopping, managing finances, etc.?: No Are you currently unemployed and looking for a job?: No Are you interested in more education?: No Please select the resources that you would like help with: Housing/Detention, Food and Utilities Currently or been in a relationship where the following occur: No concerns reported THRIVE Score: 4 AUDIT C Alcohol Use Questionnaire (AUDIT-C) 1. How often do you have a drink containing alcohol?: Monthly or less 2. How many drinks containing alcohol do you have on a typical day when you are drinking?: 1 or 2 3. How often do you have six or more drinks on one occasion?: Never Total Score: 1 Score Reviewed/Action Taken: No ALVARO-7 AMB Questionnaire ALVARO-7 Date ALVARO - 7 assessed: 09/26/24 Feeling nervous, anxious, or on edge: 3 = Nearly every day Not being able to stop or control worryin = Nearly every day Worrying too much about different things: 3 = Nearly every day Trouble relaxin = Nearly every day Being so restless that it is hard to sit still: 3 = Nearly every day Becoming easily annoyed or irritable: 3 = Nearly every day Feeling afraid as if something awful might happen: 3 = Nearly every day Total ALVARO-7 score (0-4 normal; 5-9 mild; 10-14 moderate; 15-21 severe): 21 Source: Developed by Drs. Dennis Arreaga, Melody Jeter, Jean Marie Staley and colleagues, with an educational deandre from [employer] ALVARO-7 Assessment Billing ALVARO-7 Assessment Tool: ALVARO-7 Assessment 20470 Review of Systems Const Details: - Respiratory: Reports asthma, denies recent exacerbations. - Cardiovascular: Denies significant cardiovascular events. - Gastrointestinal: Reports GERD, denies gastrointestinal bleeding. - Neurological: Reports headaches, dizziness, and short-term memory issues. - Psychological: Reports stress, past use of alprazolam for anxiety, discontinued due to memory concerns. - Sleep: Reports insomnia. - Allergy/Immunologic: Reports allergic rhinitis, occasional use of hydroxazine. Physical exam (Primary Care) Vital Signs: Last Vital Signs Temp 97.2 F 01/04/25 14:18 Pulse 65 01/04/25 14:18 BP 130/82 01/04/25 14:18 Pulse Ox 94 01/04/25 14:18 Oxygen Delivery Method Room Air 01/04/25 14:18 Care Plan Goal for BP management: <130/90 at Goal BMI result Body Mass Index 26.3 BMI Assessment/Plan discussion: High BMI High, discussed plan: lifestyle, weight reduction, dietary, physical activity and alcohol moderation Tobacco/Smoking Status: Tobacco use Status Tobacco use date assessed 01/04/25 01/04/25 14:22 Patient Tobacco Use Status Never used Tobacco 01/04/25 14:22 Tobacco use type Cigarette 01/04/25 14:22 e-Cigarette/Vaping Use Never Used 01/04/25 14:22 PHQ-9: PHQ-9 Score PHQ-9: Total score 22 01/04/25 14:22 Depression Screening Interpretation: Positive Depression Screening Follow-up: Existing condition and In treatment Thrive Assessment: Date of Thrive Assessment Date Thrive assessed 09/26/24 01/04/25 14:22 Currently or been in a relationship where the following occur: No concerns reported Const Other: Appearance: Alert. Oriented X3. No acute distress. Head: Normal external exam. Normocephalic. Atraumatic. Eyes: Pupils are equal, round, and reactive to light. Extraocular movements intact. Conjunctiva and sclera normal. Eyelids normal. Ears: External auditory canal normal. Tympanic membranes normal. Throat: Pharynx normal. Uvula midline. Moist mucous membranes. Neck: Normal inspection. Neck supple. Full range of motion. No adenopathy. Thyroid Normal. No meningeal signs. No neck mass noted. Cardiovascular: Normal heart rate and rhythm. Heart sound normal. No murmurs noted. Pulses normal throughout. Respiratory: No respiratory distress. Painless inspiration. Breath sounds normal. No wheezes/rales/rhonchi noted. Chest nontender. No accessory muscle usage noted or decreased air movement noted. Abdomen: Soft and nontender. No distention noted. No organomegaly noted. Back: Full range of motion noted. Skin: Skin warm and dry. Normal skin color. Normal skin turgor. No rashes/lesions/lacerations noted. Extremities: No lower extremity edema. Extremities exhibit normal range of motion. Extremities nontender. Neuro: Oriented X 3. No motor deficit. No sensory deficit. Reflexes normal. Results Reviewed Results Reviewed: - Labs: CBC, CMP, Thyroid function test, Hemoglobin A1c, Lipid panel, Vitamin B12, Folate, Vitamin D ordered, but results pending. - Tests: Recent mammogram completed and normal - last cervical cancer screening was 03/18/2022 which was negative. Coding Level of Care Code Est Pt Level 4 (58023) Est Pt Prev Care 40-64y(15035) Diagnoses Annual physical exam Z00.00 Cervical cancer screening Z12.4 Hormone replacement therapy Z79.890 Memory changes R41.3 Chronic headaches R51.9; G89.29 History of gastric bypass Z98.84 Overweight with body mass index (BMI) of 26 to 26.9 in adult E66.3; Z68.26 Hypertension I10 Major depressive disorder, recurrent, moderate F33.1 Additional Codes PHQ-9 - 40280 - PHQ-9 Billing: Yes ([id number]) ALVARO-7 Assessment Billing - ALVARO-7 Assessment Tool: ALVARO-7 Assessment 60069 ([id number]) Assessment & Plan Assessment & Plan (1) Annual physical exam: Code(s): Z00.00 - Encounter for general adult medical examination without abnormal findings Category: Medical (2) Cervical cancer screening: Onset Date: ~03/18/22 Code(s): Z12.4 - Encounter for screening for malignant neoplasm of cervix Category: Medical Plan: Patient last cervical cancer screening was 03/18/2022. Will refer to new family practice physician due to patient interested in hormone replacement therapy and was not offered at [facility] and she is requesting a referral to a new location will refer to OBGYN at [facility]. Condition is chronic and stable continue to monitor. (3) Hormone replacement therapy: Code(s): Z79.890 - Hormone replacement therapy Category: Medical Plan: Will refer to [facility] for possible hormone replacement therapy. (4) Memory changes: Code(s): R41.3 - Other amnesia Category: Medical Plan: Patient reports intermittent headaches, dizziness and memory loss over the past few months. Will obtain a CT scan of brain and refer to Neurology. Condition is stable will continue to monitor. (5) Chronic headaches: Code(s): R51.9 - Headache, unspecified; G89.29 - Other chronic pain Category: Medical Plan: Patient reports intermittent headaches, dizziness and memory loss over the past few months. Will obtain a CT scan of brain and refer to Neurology. Condition is stable will continue to monitor. (6) History of gastric bypass: Code(s): Z98.84 - Bariatric surgery status Category: Surgical Plan: Patient with a history of gastric bypass. She is gaining weight back and she is concerned and would like to be started on weight loss medications. Will refer to weight management. Condition is chronic and stable continue to monitor. (7) Overweight with body mass index (BMI) of 26 to 26.9 in adult: Code(s): E66.3 - Overweight; Z68.26 - Body mass index [BMI] 26.0-26.9, adult Category: Medical Plan: Patient to improve her diet and exercise regimen. Condition is chronic and stable continue to monitor. (8) Hypertension: Code(s): I10 - Essential (primary) hypertension Category: Medical Plan: Blood pressure goal less than 130/90. Blood pressure at goal. Patient to continue hydrochlorothiazide 25 mg daily along with losartan 50 mg daily. Condition is chronic and stable continue to monitor. (9) Major depressive disorder, recurrent, moderate: Code(s): F33.1 - Major depressive disorder, recurrent, moderate Category: Medical Plan: Patient already has therapist. Will refer for psychiatrist. Patient did not want to stay any longer to speak to anyone at this time. Patient to continue relaxing techniques. She denies any SI or HI. Condition is chronic and stable continue to monitor. Plan Plan Patient was informed and verbally consented to the use of an ambient scribe for clinic note documentation during this visit. 1. Gastroesophageal Reflux Disease Gerd Plan to continue PPI therapy with dietary modifications as discussed. 2. Asthma Encourage continued use of albuterol, monitoring environmental triggers. 3. Allergic Rhinitis Continue using hydroxazine as needed and consider allergy testing follow-up. 4. Essential Hypertension Maintain current antihypertensive regimen, highlighting lifestyle management. 5. Insomnia Explore sleep hygiene changes, consider referral if necessary. 6. Suspected Menopause Evaluate hormone replacement therapy options focusing on risk-benefit analysis. 7. Headaches Initiate Imatrex use for headache management, consider CAT scan if needed. 8. Dizziness/Vertigo Discussed current effective management with meclizine. 9. Short-Term Memory Issues Potential neurology referral consideration, pending progression. 10. Obesity S/P Gastric Sleeve Refer to weight management program; emphasize dietary adherence. 11. Menopausal Symptoms Continuing discussions on hormonal options post-screenings. 12. Previous Use Of Alprazolam Recognize discontinuation due to memory issues, exploring alternate treatments. I discussed a range of chronic issues with the patient, emphasizing ongoing care and management primarily focused on asthma, hypertension, menopausal symptoms, GERD, insomnia, headaches, and her weight management concerns post-gastric sleeve. We deliberated over possible hormone replacement therapy due to menopausal symptoms, weighing benefits, specific risks tied to therapy, and managing expectations. We reviewed the Imatrex management plan for headaches, touching upon correct dosage and its common side effects. Alternative diagnostic approaches, such as a potential neurology referral, were proposed. A weight m anagement program was referenced, alongside addressing lifestyle changes to preserve previous surgical benefits. Follow-ups were scheduled to ensure comprehensive monitoring of her health status, predominantly revolving around her chronic conditions and her new symptoms like dizziness and memory concerns. Orders: Orders CT head/brain wo IV con Today G89.29 - Other chronic pain, R41.3 - Other amnesia, R51.9 - Headache, unspecified Referrals OPERATIONS SCHEDULER Referral Z12.4 - Encounter for screening for malignant neoplasm of cervix, Z79.890 - Hormone replacement therapy Neurology Referral G89.29 - Other chronic pain, R41.3 - Other amnesia, R51.9 - Headache, unspecified Gastroenterology Referral Z12.11 - Encounter for screening for malignant neoplasm of colon Psychiatry Referral F32.A - Depression, unspecified Psychiatry Outpatient Consultation Service F41.9 - Anxiety disorder, unspecified Medical Weight Management Referral Z98.84 - Bariatric surgery status Medications: New sumatriptan succinate (Imitrex) take 1 tab at onset of headache; if no relief may repeat 1 tab after at least 2 hrs; max = 4 tabs/24 hr PO 90 tabs 0RF Patient Instructions: - Continue taking prescribed medications exactly as directed: PPI for GERD, albuterol for asthma, hydroxazine for allergies, and antihypertensives for blood pressure. - Consider dietary changes to help manage acid reflux. - Maintain a regular sleep schedule and use sleep hygiene techniques to improve insomnia. - Attend scheduled appointments and follow-ups, especially for hormone therapy assessment and weight management program referrals. - Keep using Imatrex for headaches as instructed, and inform if needing further assessment or testing. - Report any new or worsening symptoms promptly. - Schedule and complete labs as ordered.
[2025-01-04 14:18] VITALS: BP 130/82; PULSE 65; TEMP 36.2; O2SAT 94; BMI 26.3
--- OUTSIDE RECORDS SUMMARY | 2025-01-04 16:43 | XMS_ITS | Clinical Summary ---
Author Organization [facility] Address [address] [place] [address] Phone Care Team Providers Care Chief Wellness Officer Name Role Phone Landry Palomo MD Primary Care Provider [phone] Allergies Active Allergy Reactions Criticality Noted Date [...] History Surgery Date Site/Laterality Comments APPENDECTOMY PROCEDURE: OR APPENDECTOMY Social History Tobacco Use Types Packs/Day [...] Recently Relevant to Health Maintenance Insurance [facility] Care Teams Chief Wellness Officer Relationship Specialty Start Date End Date Landry Palomo MD [facility] [address] [place] [address] [address] [facility] [id number] PCP - General 08/12/22
--- OUTSIDE RECORDS SUMMARY | 2025-01-04 16:43 | XMS_ITS | Continuity of Care Document ---
Author Organization [facility] Address [address] [place] [address] Phone Care Team Providers Care Pest Control Technician Name Role Phone El RIVERA, PhD, JUN, [...] Diagnoses Date Provider Providers Copied on Encounter [facility], [address] [place] [address], [address] [place] [address], tel:[phone] Sleep No Information El Taylor. [address] [place] [address], [address] [place] [address], . tel:[phone] Office/Outpat ient Visit, Est [facility], [address] [place], [place], [id number], tel:[phone] Morrison Earache (chief complaint) Otalgia MD Vinnie Morrison. [facility], [address], [place], [address], [place]. tel:[phone] Office/Outpat ient Visit, [facility], [address] [facility], [place], [place], [id number], tel:[phone] Tamiko Earache (chief complaint) OtalgiaOtalgia MD Vinnie Morrison. [facility], [address], [place], [address], [place]. tel:[phone] Family History Family Member Type Diagnosis Age At Onset Father Problem (finding) Daughter Problem (finding) Allergies Mother Problem (finding) Thyroid disease Father Problem (finding) out pt surgery Daughter Problem (finding) Family history of asthm a Payers Payer name Insurance type Covered democrat ID Authoriza tion(s) [employer] MEDICAID [place] [id number] Social History Type Description Quantity Date Captured [...]
== END 2025-01-04 15:08 | disposition home or self-care (01) ==
LOC: HO.HMCH 14:13
PROVIDERS: Visit Provider Physician Assistant Medical
DX: Z00.00 Encounter for general adult medical examination without abnormal findings (principal); F33.1 Major depressive disorder, recurrent, moderate; Z68.26 Body mass index [BMI] 26.0-26.9, adult; E66.3 Overweight; R41.3 Other amnesia; R51.9 Headache, unspecified; G89.29 Other chronic pain; Z98.84 Bariatric surgery status; Z79.890 Hormone replacement therapy; I10 Essential (primary) hypertension

== ENCOUNTER → 2025-01-04 14:12 | Outpatient (BNVA) | payer OTHER, SELFPAY | PROVIDERS: Visit Provider Physician Assistant Medical | DX: Z00.01 Encounter for general adult medical examination with abnormal findings (principal); R41.3 Other amnesia; R51.9 Headache, unspecified; G89.29 Other chronic pain; E66.3 Overweight; Z68.26 Body mass index [BMI] 26.0-26.9, adult; I10 Essential (primary) hypertension; F33.1 Major depressive disorder, recurrent, moderate; K21.9 Gastro-esophageal reflux disease without esophagitis; J45.909 Unspecified asthma, uncomplicated; G47.00 Insomnia, unspecified; Z79.899 Other long term (current) drug therapy; Z98.84 Bariatric surgery status | CPT/HCPCS: 96127; 99212; 99396 ==

== ENCOUNTER 2025-01-09 10:19 | Outpatient (REF) | payer OTHER, SELFPAY ==
--- NOTE | ~2025-01-09 | XR_ITS ---
EXAMINATION: XR HAND 3 OR MORE VIEWS LEFT HISTORY: M79.642 - Pain in left hand COMPARISON: There are no prior studies available for comparison. FINDINGS: Three views of the left hand are submitted. Osseous mineralization is normal. There is a small exostosis off the dorsal aspect of the 3rd distal phalanx. There is no fracture or dislocation. There is moderate osteoarthritis of the 1st carpometacarpal joint, with joint space narrowing and osteophyte formation. The remaining joint spaces are maintained. The soft tissues are unremarkable. XR/XR hand LT min 3V IMPRESSION: 1. Small exostosis off the dorsal aspect of the 3rd distal phalanx. 2. Moderate osteoarthritis of the 1st carpometacarpal joint. Electronically signed by: Dennis Anguiano MD 01/11/2025 09:32 AM EDT
--- OUTSIDE RECORDS SUMMARY | 2025-01-10 11:33 | XMS_ITS | Continuity of Care Document ---
Author Organization [facility] Address [address] [place] [address] Phone Care Team Providers Care Rag Sorter And Cutter Name Role Phone El RIVERA, PhD, JUN, [...] Diagnoses Date Provider Providers Copied on Encounter [facility], [address] [place] [address], [address] [place] [address], tel:[phone] Sleep No Information El Taylor. [address] [place] [address], [address] [place] [address], . tel:[phone] Office/Outpat ient Visit, Est [facility], [address] [place], [place], [id number], tel:[phone] Morrison Earache (chief complaint) Otalgia MD Vinnie Morrison. [facility], [address] [facility], [address], [place], [address], [place]. tel:[phone] Office/Outpat ient Visit, [facility], [address], [place], [place], [id number], tel:[phone] Tamiko Earache (chief complaint) OtalgiaOtalgia MD Vinnie Morrison. [facility], [address] [facility], [address], [place], [address], [place]. tel:[phone] Family History Family Member Type Diagnosis Age At Onset Father Problem (finding) Daughter Problem (finding) Allergies Mother Problem (finding) Thyroid disease Father Problem (finding) out pt surgery Daughter Problem (finding) Family history of asthm a Payers Payer name Insurance type Covered alliance party ID Authoriza tion(s) [employer] MEDICAID [place] [id number] Social History Type Description Quantity Date Captured [...]
--- OUTSIDE RECORDS SUMMARY | 2025-01-10 11:33 | XMS_ITS | Clinical Summary ---
Author Organization [facility] Address [address] [place] [address] Phone Care Team Providers Care Supervisor Pleating Name Role Phone Landry Palomo MD Primary Care Provider [phone]- [phone] Allergies Active Allergy Reactions Criticality Noted Date [...] History Surgery Date Site/Laterality Comments APPENDECTOMY PROCEDURE: [place] APPENDECTOMY Social History Tobacco Use Types Packs/Day [...] 01/25/2024 11:56 AM EDT Plan of Treatment Upcoming Encounters Date Type Department Care Team (Late st Contact Info) Description 01/23/2025 3:15 PM EDT Office Visit Bariatric Surgery - [place] [address] [place] [address] Vivian Dhillon MD [address] [place] [address] Health Maintenance Due Date Last Done Comments [...] Vaccines (1 of 2) 2020 COVID-19 Vaccine (1 - 2023-2 5 season) 2024 Influenza Vaccine [...] specimen / Unknown Historical Provider LAB BLOOD ORDERABLES Arcelia l Result from Last 3 Months or Most Recently Relevant to Health Maintenance Insurance [facility] Care Teams Supervisor Pleating Relationship Specialty Start Date End Date Landry Palomo MD [facility] [address] [facility] [address] PCP - General 08/12/22
== END 2025-01-09 10:20 | disposition home or self-care (01) ==
LOC: HO.HOSX 10:19
PROVIDERS: Visit Provider Orthopaedic Surgery
DX: M79.642 Pain in left hand (principal); M18.12 Unilateral primary osteoarthritis of first carpometacarpal joint, left hand
CPT/HCPCS: 20600; 73130; 99202; J1010; J2003

== ENCOUNTER 2025-01-09 15:28 | Outpatient (AMB) | payer OTHER, SELFPAY ==
[2025-01-09 15:41] VITALS: BMI 26.3
--- NOTE | 2025-01-09 15:41 | A.OFFVIS_ITS ---
Vital Signs 01/09/25 15:41 Height 5 ft 5 in Weight 158 lb BMI 26.3 Intake Visit Reasons: New Prob- Left thumb pain Intake Note: Felix 54 yr old right hand dominant presents today for a new problem visit for her left thumb pain. States pain is mainly on her CMC joint and started in 2019 and has worsen with out improvement. Reports pain when gripping, pinching and lifting and twisting hand motions. She has CTR in both hands but her left is worse. EMG done in 2016. No injury. locking of any finger Allergies Penicillins Allergy (Intermediate, Verified 01/09/25 15:48) Hives HPI HPI New Prob- Left thumb pain: Details: Felix is a 54 year old right hand dominant woman who presents with complaints of left thumb pain. She complains of several years of left thumb pain, worse with pinching & gripping activities. She reports bilateral hand numbness and says she has known bilateral carpal tunnel syndrome, L>R. Her last NCS was done in 2016. She denies any locking or catching. 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 [facility] Medical History (Updated 01/09/25 @ 16:02 by Don Seaman) Overweight with body mass index (BMI) of 26 to 26.9 in adult History of mammogram (~10/13/24) Chronic headaches Memory changes Hormone replacement therapy Cervical cancer screening (~03/18/22) Pruritus Type II diabetes mellitus History of PCOS Moderate major depression Anxiety Post menopausal syndrome Vaginal dryness Dark brown-colored urine Hyperlipemia Vulvar candidiasis Abnormal EKG Fatigue Vertigo Well woman exam Depression Right knee pain Cervical muscle strain Dysuria Diabetes mellitus GERD (gastroesophageal reflux disease) Essential hypertension History of PCOS Obesity (BMI 30-39.9) Hypertension Surgical History History of gastric bypass History of gastric surgery H/O: hysterectomy History of partial hysterectomy Family History Mother No problems noted. Father No problems noted. Brother No problems noted. Brother No problems noted. Sister No problems noted. Son No problems noted. Son No problems noted. Daughter No problems noted. 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 Current occupational exposures/hazards: No Cognitive needs: No Hearing needs: No Vision needs: Yes Review of Systems Const All systems reviewed & are unremarkable except as noted in HPI and below Physical Exam Vital Signs: BMI result Body Mass Index 26.3 Const General: cooperative, healthy appearing and no acute distress Orientation/consciousness: patient oriented x3 HEENT Head: Yes normocephalic and Yes atraumatic Eyes EOM: EOMs intact bilaterally Resp Effort & Inspection: normal respiratory effort and able to speak in complete sentences Cardio Jugular venous distension: no JVD Skin General skin exam: turgor normal Rashes: no rashes Neuro General: patient oriented x3 Extrem Other: Evaluation of Left Upper Extremity: The patient is alert, oriented, and in no acute distress Neuro: Median, Ulnar, Radial nerves motor and sensory intact and sensation is normal to the tips of all digits No thenar or intrinsic wasting Good APB muscle belly firing and good finger cross Vascular: Cap refill brisk ROM: She can make a fist and extend all her digits No locking or catching Skin: No lacerations or abrasions. General: No Ecchymosis. No Erythema or evidence of infection. Most tender over the basal joint Pos shoulder sign Pos CMC grind No tenderness over the 1st dorsal compartment No tenderness over the a1 jasmin No tenderness over the MCP joint Radiographs: 3 views of the left hand were taken and viewed by me today in clinic. They show no fractures or dislocations. She has basal joint arthritis with joint space narrowing, osteophyte formation, and subchondral sclerosis. She also has arthritic changes in multiple PIP & DIP joints. Psych Appearance: grossly normal Affect: normal affect Attitude: cooperative Office Procedures AMB Fracture Care Details: no fx, inj Fracture Billing Code: Fracture Billing Code Assessment & Plan Assessment & Plan (1) Arthritis of carpometacarpal (CMC) joint of left thumb: Code(s): M18.12 - Unilateral primary osteoarthritis of first carpometacarpal joint, left hand Category: Medical (2) Type 2 diabetes mellitus with hyperglycemia: Code(s): E11.65 - Type 2 diabetes mellitus with hyperglycemia Category: Medical (3) Osteoarthritis of left hand: Code(s): M19.042 - Primary osteoarthritis, left hand Category: Medical Plan Assessment & Plan: 1. Left basal joint arthritis This is her chief complaint today 2. Left hand osteoarthritis In multiple PIP & DIP joints I educated her about these conditions I discussed operative and non-operative treatment options The patient would like to proceed with an injection I discussed activity modification, they should limit or avoid any heavy or repetitive pinching or gripping activities She was fitted for a comfort cool brace to wear with daily activity She should work on ROM exercises, and avoid any gripping or strengthening activities I discussed the use of assistive devices for daily activity Injection #1: The risks and benefits of a steroid injection including but not limited to risk of damage to blood vessels, nerve, tendon, infection, skin bleaching, persistent or worsening pain, and failure to improve symptoms were discussed with the patient and they wish to proceed with the steroid injection. Once consent was obtained the skin over the dorsum of the Left basal joint was sterilely prepped. The joint was then injected with a combination of 1 mL of (40 mg/ml} Depo-Medrol and 1% plain Lidocaine. The patient appears to have tolerated the procedure well and with no complications. She had good early relief before leaving clinic today. She knows that they may not have another steroid injection into this joint for least 4 months. 3. Bilateral carpal tunnel syndrome, based on patient report NCS done in 2016, no copy available today No complaints today sxs occassional If her symptoms increase in frequency or severity, she can follow up to discuss possible treatment options Scribed for Karlie Hernandez MD by Don Seaman, medical specialist, on 01/09/25 at 4:00 PM, EST. Orders: Orders XR hand LT min 3V Today M79.642 - Pain in left hand Coding Level of Care Code New Pt Level 4 (16522) Diagnoses Arthritis of carpometacarpal (CMC) joint of left thumb M18.12 Type 2 diabetes mellitus with hyperglycemia E11.65 Osteoarthritis of left hand M19.042 CPT Codes Fracture Care - Fracture Billing Code: Fracture Billing Code ([id number])
== END 2025-01-09 16:05 | disposition home or self-care (01) ==
LOC: HO.HOS 15:28
PROVIDERS: Visit Provider Orthopaedic Surgery
DX: M18.12 Unilateral primary osteoarthritis of first carpometacarpal joint, left hand (principal); M19.042 Primary osteoarthritis, left hand; E11.65 Type 2 diabetes mellitus with hyperglycemia
CPT/HCPCS: 20600; 99204

== ENCOUNTER → 2025-01-09 15:32 | Outpatient (BNV) | payer OTHER, SELFPAY | PROVIDERS: Visit Provider Radiology Diagnostic Radiology | DX: M25.742 Osteophyte, left hand (principal); M18.12 Unilateral primary osteoarthritis of first carpometacarpal joint, left hand | CPT/HCPCS: 73130 ==

== ENCOUNTER 2025-03-22 15:15 | Outpatient (AMB) | payer OTHER, SELFPAY ==
--- OUTSIDE RECORDS SUMMARY | 2025-03-22 15:18 | XMS_ITS | Encounter Summary ---
Author Organization [facility] Address [address] [place] [address] Care Team Providers Care Director Of Construction Name Role Phone Landry Palomo MD Primary Care Provider +1- [phone] Reason for Visit * Reason Onset Date Comments Advice Only 03/08/2025 MRI abdomen Encounter Details Date Type Department Care Team (Late Contact Info) Description 03/08/2025 Telephone Bariatric Surgery - [place] [address] [place] [address] Vivian Dhillon MD [address] [place] [address] Advice Only (MRI abdomen) Social History Tobacco Use Types Packs/Day Years Used Date Smoking Tobacco: Never Smokeless Tobacco: Never Alcohol Use Standard Drinks/Week Comments Yes 0 (1 standard drink = 0.6 oz pur e alcohol) Comments Unknown Sex and Gender Information Value Date Recorded Sex Assigned at Not on file Legal Sex Female 5:41 PM EDT Gender Identity Not on file Sexual Orientation Not on file documented as of this encounter Progress Notes * Amalia Martinez - 03/08/2025 3:17 PM EDT Patient is asking if you wanted her to have an MRI of her abdomen as discussed last visit? I do see labs ordered but do not see any diagnostic orders. Please advise. documented in this encounter Plan of Treatment Upcoming Encounters Date Type Department Care Team (Late Contact Info) Description 04/04/2025 4:00 PM EDT Office Visit Bariatric Surgery - [place] [address] [phone] Vivian Dhillon MD [address] [phone] 06/08/2025 12:00 PM EDT Telemedicine Bariatric Surgery - [address] [phone] Martita Galeano, RD [address] [phone] 2025 9:30 AM EDT Nutrition Bariatric Surgery - [address] [phone] Martita Galeano, MAKENNA [address] [address] documented as of this encounter Visit Diagnoses Not on filedocumented in this encounter Care Teams Director Of Construction Relationship Specialty Start Date End Date Landry Palomo MD [address] [place] [address] PCP - General 08/12/22 documented as of this encounter
[2025-03-22 15:20] VITALS: BMI 26.3
--- NOTE | 2025-03-22 15:20 | MHC.OFFVIS ---
Vital Signs 03/22/25 15:20 Height 5 ft 5 in Weight 158 lb BMI 26.3 Intake Visit Reasons: Left shoulder pain Intake Note: Felix is a 54 year old right hand dominant female who presents for follow up of left shoulder pain. At her last visit on 12/21/24 she was given a left shoulder injection. Patient reports the injection gave her good relief initially. Her pain has returned. Most of the pain is along the lateral aspect of the patient's shoulder. She wishes to avoid surgery if possible. She has tried Tylenol and ibuprofen which gave her mild relief. Allergies Penicillins Allergy (Intermediate, Verified 03/22/25 15:22) Hives Medication List - Last Reconciled 03/22/25 by Dominik Neville MD acetaminophen mg PO albuterol sulfate 90 mcg/actuation (Ventolin HFA) 2 puffs inhalation Q6H PRN fexofenadine 180 mg PO DAILY hydrochlorothiazide 25 mg PO DAILY hydroxyzine HCl 25 mg PO TID PRN losartan 50 mg PO DAILY meclizine 25 mg PO TID pantoprazole 40 mg PO DAILY sennosides-docusate sodium 8.6-50 mg (Senna Plus) 2 tab-caps (2 x 8.6-50 mg) PO BEDTIME sumatriptan succinate (Imitrex) take 1 tab at onset of headache; if no relief may repeat 1 tab after at least 2 hrs; max = 4 tabs/24 hr PO triamcinolone acetonide 0.5% 1 appl topical BID PFSH Medical History (Updated 01/09/25 @ 16:02 by Don Seaman) Overweight with body mass index (BMI) of 26 to 26.9 in adult History of mammogram (~10/13/24) Chronic headaches Memory changes Hormone replacement therapy Cervical cancer screening (~03/18/22) Pruritus Type II diabetes mellitus History of PCOS Moderate major depression Anxiety Post menopausal syndrome Vaginal dryness Dark brown-colored urine Hyperlipemia Vulvar candidiasis Abnormal EKG Fatigue Vertigo Well woman exam Depression Right knee pain Cervical muscle strain Dysuria Diabetes mellitus GERD (gastroesophageal reflux disease) Essential hypertension History of PCOS Obesity (BMI 30-39.9) Hypertension Surgical History History of gastric bypass History of gastric surgery H/O: hysterectomy History of partial hysterectomy Family History Mother No problems noted. Father No problems noted. Brother No problems noted. Brother No problems noted. Sister No problems noted. Son No problems noted. Son No problems noted. Daughter No problems noted. 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 Current occupational exposures/hazards: No Cognitive needs: No Hearing needs: No Vision needs: Yes Physical Exam Vital Signs: BMI result Body Mass Index 26.3 Extrem Other: Left shoulder examination shows almost full range of motion when compared to her right shoulder, positive impingement signs, no instability Office Procedures AMB Joint Injection/Aspiration Joint Injection/Aspiration Primary Site: left shoulder Prep: site was prepped using aseptic technique Injected: 40 mg of, DepoMedrol and 1% plain lidocaine Procedure: The patient tolerated the procedure well Coding 89280 - Large joint Procedure code (CPT) selection complete Assessment & Plan Assessment & Plan (1) Impingement syndrome of left shoulder: Code(s): M75.42 - Impingement syndrome of left shoulder Category: Medical (2) Left shoulder pain: Code(s): M25.512 - Pain in left shoulder Category: Medical Plan Ms. Huntley presents with left shoulder pain due to impingement syndrome. The risks and benefits of a left shoulder cortisone injection were discussed at length with the patient. The patient wished to proceed. She tolerated the injection well. She will continue with her home stretching program to prevent stiffness. She will contact me prior to her follow-up appointment in 3 months should any questions or concerns arise. I spent 21 minutes in reviewing the patient's records and imaging studies, seeing the patient and documenting in the medical record. Orders: Orders AMB Joint Injection/Aspiration 03/22/25 M75.42 - Impingement syndrome of left shoulder Medications: New celecoxib (Celebrex) 200 mg PO DAILY PRN 30 caps 3RF pain Coding Level of Care Code Est Pt Level 3 (25016) Complex EM visit Add On G2211 Diagnoses Impingement syndrome of left shoulder M75.42 Left shoulder pain M25.512 CPT Codes Coding - 87867 Large joint: 68319 - Large joint ([id number])
== END 2025-03-22 15:37 | disposition home or self-care (01) ==
LOC: HO.HOS 15:16
PROVIDERS: Visit Provider Orthopaedic Surgery
DX: M75.42 Impingement syndrome of left shoulder (principal); M25.512 Pain in left shoulder
CPT/HCPCS: 20610; 99213

== ENCOUNTER → 2025-03-22 15:15 | Outpatient (BNVA) | payer OTHER, SELFPAY | PROVIDERS: Visit Provider Orthopaedic Surgery | DX: M75.42 Impingement syndrome of left shoulder (principal); M25.512 Pain in left shoulder | CPT/HCPCS: 20610; 99212; J1010; J2003 ==

== ENCOUNTER 2025-04-05 14:36 | Outpatient (AMB) | payer OTHER, SELFPAY ==
--- OUTSIDE RECORDS SUMMARY | 2025-04-04 16:00 | XMS_ITS | Encounter Summary ---
Author Organization [facility] [place] [address] Care Team Providers Care Gizzard Skin Remover Name Role Phone Landry Palomo MD Primary Care Provider +1- [phone] Reason for Visit * Reason Comments Follow-up FU Encounter Details Date Type Department Care Team ([facility] st Contact Info) Description 04/04/2025 4:00 PM EDT Office Visit Bariatric Surgery - [place] [address] [facility] [address] [place] [address] Vivian Dhillon MD [address] [facility] [address] [place] [address] S/P gastric sleeve procedure (Primary Dx); Overweight; Weight gain; Inactivity Social History Tobacco Use Types Packs/Day Years [...] on file documented as of this encounter Last Filed Vital Signs Vital Sign Reading Time Taken Comments Blood Pressure 164/117 04/04/2025 3:57 PM EDT Didnt take any BP medication today. Pulse 78 04/04/2025 3:57 PM EDT Temperature 36.4 C (97.6 F) 04/04/2025 3:57 PM EDT Respiratory Rate - - Oxygen Saturation - - Inhaled Oxygen Concentration - - Weight 73 kg (161 lb) 04/04/2025 3:57 PM EDT took weight from last visit Pt refused to get on scale Height 167.6 cm (5' 6 ) 04/04/2025 3:57 PM EDT Body Mass Index 25.99 04/04/2025 3:57 PM EDT documented in this encounter Progress Notes * Vivian Dhillon MD - 04/04/2025 4:00 PM EDT Felix underwent a robotic sleeve on 01/07/2024. Last seen 02/07/25 States that her lowest weight was down to 139 lbs, however she has been slowly overeating and grazing throughout the day. Diet: feels a restriction when eating savory foods, but has cravings for sweets, Fluid: now avoiding alisa crispin. Drinks Fresca, sparkling water, crystalight MVI: patch Exercise: some walking, Weight change since preop: 202-161=-41 lbs Weight change since last visit: 159-161=+2 lbs Vitals: 04/04/25 1557 BP: (!) 164/117 BP Location: Right arm Patient Position: Sitting BP Cuff Size: Adult Pulse: 78 Temp: 36.4 ??C (97.6 ??F) TempSrc: Temporal Weight: 73 kg (161 lb) Height: 1.676 m (66 ) A/p: 15 months s/p sleeve, with weight regain due to poor diet and lack of activity. We discussed importance of lifelong diet and exercise. She did make a few changes since her last visit, mainly in her drinks choice. Needs to cut out the sweets, and increase her physical activity. Continue follow up with dietitian. Just did her labs today. Results pending. She asked me about surgical options. At this point, I would not recommend any surgical interventionas she needs to show consistent adherence to a healthy diet and exercise regimen, without which a bariatric revision surgery will not be successful. Follow up in a month. documented in this encounter Plan of Treatment Upcoming Encounters Date Type Department Care Team (Late st Contact Info) Description 05/16/2025 4:00 PM EDT Office Visit Bariatric Surgery - [place] [address] [phone] Vivian Dhillon MD [address] [phone] 06/08/2025 12:00 PM EDT Telemedicine Bariatric Surgery - [address] [phone] Martita Galeano, RD [address] [phone] 2025 9:30 AM EDT Nutrition Bariatric Surgery - [address] [phone] Martita Galeano, RD [address] [phone] documented as of this encounter Visit Diagnoses Diagnosis S/P gastric sleeve procedure- Primary Overweight Weight gain Other symptoms concerning nutrition, metabolism, and development Inactivity documented in this encounter Care Teams Gizzard Skin Remover Relationship Specialty Start Date End Date Landry Palomo MD [facility] [address] [place] [address] [address] [facility] [place] [address] PCP - General 08/12/22 documented as of this encounter
--- NOTE | 2025-04-05 14:42 | MHC.PC.OV ---
Vital Signs 04/05/25 14:44 Height 5 ft 5 in Weight 161 lb BMI 26.8 BP 130/70 Blood Pressure Location Lt brachial Position Sitting Temp 97.1 F Temp Source Temporal Artery Scan Intake Visit Reasons: 4 month f/u- A1C needed Intake Note: Patient is here to follow up on DM, Hypercholesterolemia, GERD, HTN. Unix Architect Required: No Loss Prevention Coordinator: Not Required per policy Accompanied by: Self / Same As Patient Allergies Penicillins Allergy (Intermediate, Verified 04/05/25 15:27) Hives Medication List - Last Reconciled 04/05/25 by Landry Palomo MD acetaminophen mg PO albuterol sulfate 90 mcg/actuation (Ventolin HFA) 2 puffs inhalation Q6H PRN celecoxib (Celebrex) 200 mg PO DAILY PRN fexofenadine 180 mg PO DAILY hydrochlorothiazide 25 mg PO DAILY hydroxyzine HCl 25 mg PO TID PRN losartan 50 mg PO DAILY meclizine 25 mg PO TID pantoprazole 40 mg PO DAILY sennosides-docusate sodium 8.6-50 mg (Senna Plus) 2 tab-caps (2 x 8.6-50 mg) PO BEDTIME sumatriptan succinate (Imitrex) take 1 tab at onset of headache; if no relief may repeat 1 tab after at least 2 hrs; max = 4 tabs/24 hr PO trazodone 50 mg PO BEDTIME PRN triamcinolone acetonide 0.5% 1 appl topical BID Tobacco use date assessed: 04/05/25 Dental Screening Dental Screen Date: 09/26/24 HPI 4 month f/u- A1C needed HPI Details Patient would like to start postmenopausal hormone replacement therapy. She feels tired, in a mental fog and generally weak. Did not tolerate the SSRIs. Recently got laid off from work. Unable to sleep at night. [facility] Medical History Postmenopausal HRT (hormone replacement therapy) Overweight with body mass index (BMI) of 26 to 26.9 in adult History of mammogram (~10/13/24) Chronic headaches Memory changes Hormone replacement therapy Cervical cancer screening (~03/18/22) Pruritus Type II diabetes mellitus History of PCOS Moderate major depression Anxiety Post menopausal syndrome Vaginal dryness Dark brown-colored urine Hyperlipemia Vulvar candidiasis Abnormal EKG Fatigue Vertigo Well woman exam Depression Right knee pain Cervical muscle strain Dysuria Diabetes mellitus GERD (gastroesophageal reflux disease) Essential hypertension History of PCOS Obesity (BMI 30-39.9) Hypertension Surgical History History of gastric bypass History of gastric surgery H/O: hysterectomy History of partial hysterectomy Family History Mother No problems noted. Father No problems noted. Brother No problems noted. Brother No problems noted. Sister No problems noted. Son No problems noted. Son No problems noted. Daughter No problems noted. 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 Current occupational exposures/hazards: No Cognitive needs: No Hearing needs: No Vision needs: Yes Questionnaire Thrive Questionnaire Date Thrive assessed: 01/04/25 I am a: Patient What is your living situation today?: I have a place to live, but I am worried about losing it in the future Within the past 12 months, did the food you bought not last and you didn't have the money to get more?: Sometimes True Within the past 12 months, did you worry whether your food would run out before you got money to buy more?: Sometimes True Do you have trouble paying for medicines?: No Do you have trouble getting transportation to medical appointments?: No Do you have trouble paying your heating and electricity bill?: Yes Do you have trouble taking care of your child, family member or friend?: No Do you have trouble with day-to-day activities such as bathing, preparing meals, shopping, managing finances, etc.?: No Are you currently unemployed and looking for a job?: No Are you interested in more education?: No Currently or been in a relationship where the following occur: No concerns reported THRIVE Score: 4 ALVARO-7 AMB Questionnaire ALVARO-7 Date ALVARO - 7 assessed: 01/14/25 Source: Developed by Drs. Dennis Arreaga, Melody Jeter, Jean Marie Staley and colleagues, with an educational deandre from [employer]. Physical exam (Primary Care) Vital Signs: Last Vital Signs Temp 97.1 F 04/05/25 14:44 BP 130/70 04/05/25 14:44 Care Plan Goal for BP management: Blood pressure is in range. BMI result Body Mass Index 26.8 Tobacco/Smoking Status: Tobacco use Status Tobacco use date assessed 04/05/25 04/05/25 14:50 Patient Tobacco Use Status Never used Tobacco 04/05/25 14:50 Tobacco use type Cigarette 04/05/25 14:50 e-Cigarette/Vaping Use Never Used 04/05/25 14:50 Thrive Assessment: Date of Thrive Assessment Date Thrive assessed 01/04/25 04/05/25 14:50 Currently or been in a relationship where the following occur: No concerns reported Const General: cooperative and healthy appearing Nutritional Appearance: well nourished Orientation/consciousness: patient oriented x3 Limitations: no limitations HENMT Head: Yes normal to inspection Eyes General: appearance normal, both eyes and all related structures Neck Neck: Yes normal visual inspection Chest Chest palpation & inspection: normal palpation of entire chest wall Resp Effort & Inspection: normal respiratory effort Neuro General: patient oriented x3 Results AMB Hemoglobin A1c AMB Hemoglobin A1c 5.6 % Last Edit by CELESTINA Drake on 04/05/25 14:57 Results Reviewed Results Reviewed: Laboratory Last Values Hgb A1c (Clinic) 5.6 % (4.0-6.0) 04/05/25 14:42 Coding Level of Care Code Est Pt Level 3 (85092) Complex EM visit Add On G2211 Diagnoses Postmenopausal HRT (hormone replacement therapy) Z79.890 Assessment & Plan Assessment & Plan (1) Postmenopausal HRT (hormone replacement therapy): Code(s): Z79.890 - Hormone replacement therapy Category: Medical Plan: Seafood Packer consult requested. Trazodone started. Orders: Orders AMB Hemoglobin A1c Today E11.65 - Type 2 diabetes mellitus with hyperglycemia Referrals DESIGN CONSULTANT Referral Z79.890 - Hormone replacement therapy Medications: New trazodone 50 mg PO BEDTIME PRN 30 tabs 0RF sleep
[2025-04-05 14:44] VITALS: BP 130/70; TEMP 36.2; BMI 26.8
== END 2025-04-05 15:23 | disposition home or self-care (01) ==
LOC: HO.HMCH 14:37
PROVIDERS: Visit Provider Internal Medicine
DX: Z79.890 Hormone replacement therapy (principal); E11.65 Type 2 diabetes mellitus with hyperglycemia

== ENCOUNTER → 2025-04-05 14:36 | Outpatient (BNVA) | payer OTHER, SELFPAY | PROVIDERS: Visit Provider Internal Medicine | DX: E11.65 Type 2 diabetes mellitus with hyperglycemia (principal); E78.00 Pure hypercholesterolemia, unspecified; K21.9 Gastro-esophageal reflux disease without esophagitis; I10 Essential (primary) hypertension; Z78.0 Asymptomatic menopausal state | CPT/HCPCS: 83036; 99212 ==

== ENCOUNTER 2025-04-10 10:51 | Outpatient (REF) | payer OTHER, SELFPAY ==
--- NOTE | ~2025-04-10 | XR_ITS ---
EXAMINATION: XR HAND, RIGHT CLINICAL INFORMATION: M79.641 - Pain in right hand COMPARISON: None available. TECHNIQUE: PA, lateral, and oblique views of the right hand. FINDINGS: No acute fracture is identified. There is minimal marginal osteophyte formation involving the first carpal metacarpal joint. There is ulnar minus variance and minimal remodeling of the adjacent sigmoid notch of radius. XR/XR hand RT min 3V IMPRESSION: Mild first CMC joint osteoarthritis. Ulnar minus variance. Electronically signed by: Moy Cohen MD 04/10/2025 03:03 PM EDT
--- OUTSIDE RECORDS SUMMARY | 2025-04-11 11:50 | XMS_ITS | Clinical Summary ---
Author Organization [facility] Address [address] [place] [address] Phone Care Team Providers Care Psychiatric Mental Health Nurse Name Role Phone Landry Palomo MD Primary Care Provider [phone] Allergies Active Allergy Reactions Criticality Noted Date [...] 4:00 PM EDT Office Visit Bariatric Surgery [address] [phone] Vivian Dhillon MD S/P gastric sleeve procedure (Primary Dx); Overweight; Weight gain; Inactivity 03/21/2025 3:30 PM EDT Nutrition Bariatric Surgery [address] [phone] Overweight (Primary Dx) 03/08/2025 Telephone Bariatric Surgery [address] [phone] Vivian Dhillon MD Advice Only (MRI abdomen) 02/15/2025 10:30 AM EDT Telemedicine Bariatric Surgery [address] [phone] Overweight (Primary Dx) 02/07/2025 3:45 PM EDT Office Visit Bariatric Surgery [address] [phone] Vivian Dhillon MD S/P gastric sleeve procedure [...] 4:00 PM EDT Office Visit Bariatric Surgery [address] [phone] Vivian Dhillon MD [address] [phone] 06/08/2025 12:00 PM EDT Telemedicine Bariatric Surgery [address] [phone] [phone] 2025 9:30 AM EDT Nutrition Bariatric Surgery [address] [phone] [phone] Health Maintenance Due Date Last Done Comments [...] PM EDT S/P gastric sleeve procedure VITAMIN B1 Routine 04/04/2025 2:44 PM EDT S/P gastric sleeve procedure SELENIUM SERUM Routine 04/04/2025 2:44 PM EDT S/P gastric [...] CBC auto differential (04/04/2025 2:44 PM EDT) [facility] WBC 4.3(L) 4.8 - 10.8 K/mcL LAB HEMETOLOGY METHOD 04/04/2025 3:38 PM EDT [facility] RBC 4.30 3.80 - 4.80 M/mcL LAB HEMETOLOGY METHOD 04/04/2025 3:38 PM EDT [facility] Hemoglobin 11.5 11.5 - 16.0 g/dL LAB HEMETOLOGY METHOD 04/04/2025 3:38 PM EDT [facility] Hematocrit 35.8 35.0 - 47.0 % LAB HEMETOLOGY METHOD 04/04/2025 3:38 PM EDT [facility] MCV 83.6 79.0 - 98.0 FL LAB HEMETOLOGY METHOD 04/04/2025 3:38 PM EDT [facility] MCH 26.9(L) 27.0 - 32.0 pcg LAB HEMETOLOGY METHOD 04/04/2025 3:38 PM [facility] MCHC 32.1 32.0 - 37.0 g/dL LAB HEMETOLOGY METHOD 04/04/2025 3:38 PM [facility] RDW 13.6 11.0 - 15.0 % LAB HEMETOLOGY METHOD 04/04/2025 3:38 PM [facility] Platelets 342 130 - 400 K/mcL LAB HEMETOLOGY METHOD 04/04/2025 3:38 PM [facility] MPV 10.6 7.0 - 11.0 FL LAB HEMETOLOGY METHOD 04/04/2025 3:38 PM [facility] NRBC 0.0 <1.0 % LAB HEMETOLOGY METHOD 04/04/2025 3:38 PM [facility] NRBC Absolute 0.00 <0.10 K/mcL LAB HEMETOLOGY METHOD 04/04/2025 3:38 PM [facility] Neutrophils Relative 44.2 % LAB HEMETOLOGY METHOD 04/04/2025 3:38 PM [facility] Lymphocytes Relative 43.0 % LAB HEMETOLOGY METHOD 04/04/2025 3:38 PM [facility] Monocytes Relative 9.8 % LAB HEMETOLOGY METHOD 04/04/2025 3:38 PM [facility] Eosinophils Relative 2.3 % LAB HEMETOLOGY METHOD 04/04/2025 3:38 PM [facility] Basophils Relative 0.5 % LAB HEMETOLOGY METHOD 04/04/2025 3:38 PM [facility] Immature Granulocytes Relative 0.2 % LAB HEMETOLOGY METHOD 04/04/2025 3:38 PM [facility] Neutrophils Absolute 1.89 1.50 - 7.00 K/mcL LAB HEMETOLOGY METHOD 04/04/2025 3:38 PM EDT [facility] Lymphocytes Absolute 1.84 1.00 - 5.00 K/mcL LAB HEMETOLOGY METHOD 04/04/2025 3:38 PM EDT [facility] Monocytes Absolute 0.42 0.20 - 1.00 K/mcL LAB HEMETOLOGY METHOD 04/04/2025 3:38 PM EDT [facility] Eosinophils Absolute 0.10 0.00 - 0.50 K/mcL LAB HEMETOLOGY METHOD 04/04/2025 3:38 PM EDT [facility] Basophils Absolute 0.02 0.00 - 0.20 K/[facility] LAB HEMETOLOGY METHOD 04/04/2025 3:38 PM EDT [facility] Immature Granulocytes Absolute 0.01 0.00 - 0.03 K/mcL LAB HEMETOLOGY METHOD 04/04/2025 3:38 PM EDT [facility] Blood Venous blood specimen / Unknown Venipuncture / Unknown 04/04/2025 2:44 PM EDT 04/04/2025 3:25 PM EDT Vivian Dhillon MD LAB BLOOD ORDERABLES Fi nal Result [facility] [address] [place] [address], * Iron and TIBC (04/04/2025 2:44 PM EDT) Iron 105 40 - 150 mcg/dL LAB CHEMISTRY METHOD 04/04/2025 4:26 PM EDT [facility] TIBC 317 250 - 450 mcg/dL LAB CHEMISTRY METHOD 04/04/2025 4:26 PM EDT [facility] Iron Saturation 33 15 - 50 % LAB CHEMISTRY METHOD 04/04/2025 4:26 PM EDT [facility] Blood Venous blood specimen / Unknown Venipuncture / Unknown 04/04/2025 2:44 PM EDT 04/04/2025 3:26 PM EDT us Vivian Dhillon MD LAB BLOOD ORDERABLES Fi nal Result Performing Organization Address City/[facility]/ZIP Co de Phone Number [facility] [address] [place] [address], * Zinc (04/04/2025 2:44 PM EDT) Zinc 89 60 - 130 ug/dL 04/09/2025 12:43 PM EDT [facility] Comment: Elevated results may be due to sample collected in a non-certified trace element-free tube. This test was developed and the performance characteristics determined by [facility]. It has not been cleared or approved by the FDA. The laboratory is regulated under CLIA as qualified to perform high-complexity testing. This test is used for patient testing purposes. It should not be regarded as investigational or for research. Test performed at [facility], [address] [place] [address] Marla Adan MD, PhD - Merchandise Associate Blood Venous blood specimen / Unknown Venipuncture / Unknown 04/04/2025 2:44 PM EDT 04/04/2025 3:25 PM EDT us Vivian Dhillon MD LAB BLOOD ORDERABLES Fi nal Result Performing Organization Address City/[facility]/ZIP Co de Phone Number [facility] [address] [place] [address] * Selenium serum (04/04/2025 2:44 PM EDT) Selenium 140 63 - 160 mcg/L 04/10/2025 3:36 PM EDT [facility] Comment: Testing was performed on a specimen submitted in a tube which has not been certified to be free of trace elements. Repeat testing on a specimen collected in a trace element tube is recommended prior to initiation of remedial action or environmental investigation of potential heavy metal sources. Refer to the [employer] Directory of Services for proper specimen collection information. This test was developed and its analytical performance characteristics have been determined by [employer] [place], [place]. It has not been cleared or approved by the U.S. Food and Drug Administration. This assay has been validated pursuant to the CLIA regulations and is used for clinical purposes. Test Performed by [employer], [employer] [facility], [address] [place], [place] Sammy Willingham M.D., Ph.D., Director of Laboratories , CLIA [id number] Blood Venous blood specimen / Unknown Venipuncture / Unknown 04/04/2025 2:44 PM EDT 04/04/2025 3:25 PM EDT Vivian Dhillon MD LAB BLOOD ORDERABLES Fi nal Result Performing Organization Address City/[facility]/ZIP Co de Phone Number [facility] [address] [place] [address] * (ABNORMAL) Vitamin D 25 hydroxy (04/04/2025 2:44 PM EDT) Pathologist [facility] [place] Vit D, 25-Hydroxy 28.8(L) 30.0 - 80.0 ng/mL LAB CHEMISTRY METHOD 04/04/2025 4:46 PM EDT [facility] Blood Venous blood specimen / Unknown Venipuncture / Unknown 04/04/2025 2:44 PM EDT 04/04/2025 3:26 PM EDT Vivian Dhillon MD LAB BLOOD ORDERABLES Fi nal Result [facility] [address] [place] [address], * Vitamin B1 (04/04/2025 2:44 PM EDT) Pathologist [facility] [place] Vitamin B1 Whole Blood 52 38 - 122 ug/L 04/11/2025 6:12 AM EDT [facility] Comment: This test was developed and the performance characteristics determined by [facility]. It has not been cleared or approved by the FDA. The laboratory is regulated under CLIA as qualified to perform high-complexity testing. This test is used for patient testing purposes. It should not be regarded as investigational or for research. Test performed at [facility], [address] [place] [address] Marla Adan MD, PhD - Merchandise Associate Blood Venous blood specimen / Unknown Venipuncture / Unknown 04/04/2025 2:44 PM EDT 04/04/2025 3:25 PM EDT us Vivian Dhillon MD LAB BLOOD ORDERABLES Fi nal Result Performing Organization Address [facility]/ZIP Co de Phone Number [facility] [address] [place] [address] * Vitamin B6 (04/04/2025 2:44 PM EDT) [facility] Vitamin B6 (Pyridoxine) Level 12 5 - 50 ug/L 04/10/2025 10:45 AM EDT [facility] Comment: This test was developed and the performance characteristics determined by [facility]. It has not been cleared or approved by the FDA. The laboratory is regulated under CLIA as qualified to perform high-complexity testing. This test is used for patient testing purposes. It should not be regarded as investigational or for research. Test performed at [facility], [address] [place] [address] Marla Adan MD, PhD - Merchandise Associate Blood Venous blood specimen / Unknown Venipuncture / Unknown 04/04/2025 2:44 PM EDT 04/04/2025 3:25 PM EDT us Vivian Dhillon MD LAB BLOOD ORDERABLES Fi nal Result Performing Organization Address [facility]/ZIP Co de Phone Number [facility] [address] [place] [address] * Folate (04/04/2025 2:44 PM EDT) [facility] Folate 9.6 2.8 - 17.0 ng/ml LAB CHEMISTRY METHOD 04/04/2025 4:49 PM EDT [facility] Blood Venous blood specimen / Unknown Venipuncture / Unknown 04/04/2025 2:44 PM EDT 04/04/2025 3:26 PM EDT us Vivian Dhillon MD LAB BLOOD ORDERABLES Fi nal Result Performing Organization Address City/[facility]/ZIP Co de Phone Number [facility] [address] [place] [address], [place] [phone] * (ABNORMAL) Vitamin B12 (04/04/2025 2:44 PM EDT) [facility] Vitamin B-12 218(L) 250 - 900 pcg/mL LAB CHEMISTRY METHOD 04/04/2025 4:49 PM EDT [facility] Blood Venous blood specimen / Unknown Venipuncture / Unknown 04/04/2025 2:44 PM EDT 04/04/2025 3:26 PM EDT us Vivian Dhillon MD LAB BLOOD ORDERABLES Fi nal Result Performing Organization Address City/[facility]/ZIP Co de Phone Number [facility] [address] [place] [address], [place] [phone] * (ABNORMAL) Comprehensive metabolic panel (04/04/2025 2:44 PM EDT) [facility] Sodium 139 133 - 145 mmol/L LAB CHEMISTRY METHOD 04/04/2025 4:49 PM EDT [facility] Potassium 4.0 3.5 - 5.5 mmol/L LAB CHEMISTRY METHOD 04/04/2025 4:49 PM EDT [facility] Chloride 105 96 - 110 mmol/L LAB CHEMISTRY METHOD 04/04/2025 4:49 PM [facility] CO2 28 21 - 32 mmol/L LAB CHEMISTRY METHOD 04/04/2025 4:49 PM [facility] Anion Gap 6 3 - 11 LAB CHEMISTRY METHOD 04/04/2025 4:49 PM [facility] Glucose 104(H) 70 - 100 mg/dL LAB CHEMISTRY METHOD 04/04/2025 4:49 PM [facility] BUN 16 5 - 25 mg/dL LAB CHEMISTRY METHOD 04/04/2025 4:49 PM [facility] Creatinine 0.82 0.50 - 1.10 mg/dL LAB CHEMISTRY METHOD 04/04/2025 4:49 PM [facility] eGFR 85 >=60 mL/min/1. 73m2 LAB CHEMISTRY METHOD 04/04/2025 4:49 PM [facility] Comment:Calculation based on the Chronic Kidney Disease Epidemiology Collaboration (CKD-EPI) equation refit without adjustment for race. BUN/Creatinine Ratio 19.5 LAB CHEMISTRY METHOD 04/04/2025 4:49 PM [facility] Calcium 8.9 8.5 - 10.5 mg/dL LAB CHEMISTRY METHOD 04/04/2025 4:49 PM [facility] AST (SGOT) 22 10 - 42 unit/L LAB CHEMISTRY METHOD 04/04/2025 4:49 PM [facility] ALT (SGPT) 32 10 - 60 unit/L LAB CHEMISTRY METHOD 04/04/2025 4:49 PM [facility] Alkaline Phosphatase 106 42 - 121 unit/L LAB CHEMISTRY METHOD 04/04/2025 4:49 PM [facility] Total Protein 6.9 6.0 - 8.0 g/dL LAB CHEMISTRY METHOD 04/04/2025 4:49 PM [facility] Albumin 4.0 3.2 - 5.0 g/dL LAB CHEMISTRY METHOD 04/04/2025 4:49 PM EDT [facility] Total Bilirubin 0.3 0.0 - 1.4 mg/dL LAB CHEMISTRY METHOD 04/04/2025 4:49 PM EDT [facility] Blood Venous blood specimen / Unknown Venipuncture / Unknown 04/04/2025 2:44 PM EDT 04/04/2025 3:26 PM EDT Vivian Dhillon MD LAB BLOOD ORDERABLES Fi nal Result [facility] [address] [place] [address], [place] [phone] * (ABNORMAL) Lipid panel (09/10/2023) LDL/HDL Ratio [...] Phone Billing Address Personal/Family Self [address] [place] [address] [facility] Care Teams Psychiatric Mental Health Nurse Relationship Specialty Start Date End Date Landry Palomo MD [address] [place] [address] PCP - General 08/12/22
== END 2025-04-10 10:52 | disposition home or self-care (01) ==
LOC: HO.HOSX 10:51
PROVIDERS: Visit Provider Orthopaedic Surgery
DX: M18.11 Unilateral primary osteoarthritis of first carpometacarpal joint, right hand (principal); M18.12 Unilateral primary osteoarthritis of first carpometacarpal joint, left hand; E11.65 Type 2 diabetes mellitus with hyperglycemia; M79.641 Pain in right hand; R20.0 Anesthesia of skin
CPT/HCPCS: 20600; 73130; 99212; J1010; J2003

== ENCOUNTER 2025-04-10 14:48 | Outpatient (AMB) | payer OTHER, SELFPAY ==
--- NOTE | 2025-04-10 14:58 | MHC.OFFVIS ---
Vital Signs 04/10/25 15:01 Height 5 ft 5 in Weight 161 lb BMI 26.8 Intake Visit Reasons: New Prob-Right hand pain Intake Note: Felix 54 yr old right hand dominant female presents today for a new problem visit for an evaluation of her right hand. States she is having pain in her CMC joint. No injury she can recall. Pain is worse with writing, twisting and gripping. Denies numbness, tingling or locking of any finger. Hx of Left basal joint injection 01/09/2025 with good improvement. States she wouldlike to discuss injection. Allergies Penicillins Allergy (Intermediate, Verified 04/10/25 15:07) Hives HPI HPI New Prob-Right hand pain: Details: Felix is a 54 year old right hand dominant woman who presents with complaints of right thumb pain. She was last seen for a left basal joint injection on 01/09/25, which gave her good relief. She complains of new right thumb pain. worse with pinching & gripping activities. she says this feels the same as her left hand. She would like an injection today. She reports bilateral hand numbness and says she has known bilateral carpal tunnel syndrome, L>R. Her last NCS was done in 2016. She denies any locking or catching. 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 [facility] Medical History Postmenopausal HRT (hormone replacement therapy) Overweight with body mass index (BMI) of 26 to 26.9 in adult History of mammogram (~10/13/24) Chronic headaches Memory changes Hormone replacement therapy Cervical cancer screening (~03/18/22) Pruritus Type II diabetes mellitus History of PCOS Moderate major depression Anxiety Post menopausal syndrome Vaginal dryness Dark brown-colored urine Hyperlipemia Vulvar candidiasis Abnormal EKG Fatigue Vertigo Well woman exam Depression Right knee pain Cervical muscle strain Dysuria Diabetes mellitus GERD (gastroesophageal reflux disease) Essential hypertension History of PCOS Obesity (BMI 30-39.9) Hypertension Surgical History History of gastric bypass History of gastric surgery H/O: hysterectomy History of partial hysterectomy Family History Mother No problems noted. Father No problems noted. Brother No problems noted. Brother No problems noted. Sister No problems noted. Son No problems noted. Son No problems noted. Daughter No problems noted. 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 Current occupational exposures/hazards: No Cognitive needs: No Hearing needs: No Vision needs: Yes Physical Exam Vital Signs: BMI result Body Mass Index 26.8 Extrem Other: Evaluation of Right Upper Extremity: The patient is alert, oriented, and in no acute distress Neuro: Median, Ulnar, Radial nerves motor and sensory intact and sensation is normal to the tips of all digits No thenar or intrinsic wasting Good APB muscle belly firing and good finger cross Vascular: Cap refill brisk ROM: She can make a fist and extend all her digits No locking or catching Most tender over the basal joint Pos shoulder sign Pos CMC grind No tenderness over the 1st dorsal compartment No tenderness over the a1 jasmin No tenderness over the MCP joint Radiographs: 3 views of the right hand were taken and viewed by me today in clinic. They show no fractures or dislocations. She has some early basal joint arthritis with joint space narrowing. Office Procedures AMB Fracture Care Details: No fracture, injection Fracture Billing Code: Fracture Billing Code Assessment & Plan Assessment & Plan (1) Arthritis of carpometacarpal (CMC) joint of right thumb: Code(s): M18.11 - Unilateral primary osteoarthritis of first carpometacarpal joint, right hand Category: Medical (2) Arthritis of carpometacarpal (CMC) joint of left thumb: Code(s): M18.12 - Unilateral primary osteoarthritis of first carpometacarpal joint, left hand Category: Medical (3) Type 2 diabetes mellitus with hyperglycemia: Code(s): E11.65 - Type 2 diabetes mellitus with hyperglycemia Category: Medical Plan Assessment & Plan: 1. Right basal joint arthritis, S/P injection Date of injection: 04/10/25 I educated her about this condition I discussed operative and non-operative treatment options The patient would like to proceed with an injection I discussed activity modification, they should limit or avoid any heavy or repetitive pinching or gripping activities She was fitted for a comfort cool brace to wear with daily activity She should work on ROM exercises, and avoid any gripping or strengthening activities I discussed the use of assistive devices for daily activity Injection #1: The risks and benefits of a steroid injection including but not limited to risk of damage to blood vessels, nerve, tendon, infection, skin bleaching, persistent or worsening pain, and failure to improve symptoms were discussed with the patient and they wish to proceed with the steroid injection. Once consent was obtained the skin over the dorsum of the Right basal joint was sterilely prepped. The joint was then injected with a combination of 1 mL of (40 mg/ml} Depo-Medrol and 1% plain Lidocaine. The patient appears to have tolerated the procedure well and with no complications. She had good early relief before leaving clinic today. She knows that they may not have another steroid injection into this joint for least 4 months. 2. Left basal joint arthritis, S/P injection Date of injection: 01/09/25 3. 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 Bilateral carpal tunnel syndrome, based on patient report NCS done in 2016, no copy available today No complaints today sxs occassional If her symptoms increase in frequency or severity, she can follow up to discuss possible treatment options Scribed for Karlie Hernandez MD by Don Seaman, ophthalmic medical technician, on 04/10/25 at 3:10 PM, EST. Orders: Orders XR hand RT min 3V Today M79.641 - Pain in right hand Coding Level of Care Code Est Pt Level 3 (26867) Diagnoses Arthritis of carpometacarpal (CMC) joint of right thumb M18.11 Arthritis of carpometacarpal (CMC) joint of left thumb M18.12 Type 2 diabetes mellitus with hyperglycemia E11.65 CPT Codes Fracture Care - Fracture Billing Code: Fracture Billing Code ([id number])
[2025-04-10 15:01] VITALS: BMI 26.8
--- OUTSIDE RECORDS SUMMARY | 2025-04-10 15:36 | XMS_ITS | Clinical Summary ---
Author Organization [facility] Address [address] [place] [address] Phone Care Team Providers Care Lube Technician Name Role Phone Landry Palomo MD Primary Care Provider [phone] Allergies Active Allergy Reactions Criticality Noted Date [...] daily for 180 days. - Oral Active ergocalciferol (VITAMIN D-2) 1,250 mcg (50,000 unit) capsule Take 1 capsule (50,000 Units total) by mouth 1 (one) time per week. 12 each 04/06/2025 04/06/20 26 Active cyanocobalamin (Vitamin B-12) 500 mcg tablet Take 1 tablet (500 mcg total) by mouth 1 (one) time each day. 30 each 2 04/06/2025 07/05/20 25 Active Active Problems Problem Noted Date Diagnosed Date Overweight 02/15/2025 Class 1 obesity with body ma ss index (BMI) of 31.0 to 31.9 in adult 06/20/2024 Encounters Date Type Department Care Team Description 04/04/2025 4:00 PM EDT Office Visit Bariatric Surgery [address] [phone] Vivian Dhillon MD S/P gastric sleeve procedure (Primary Dx); Overweight; Weight gain; Inactivity 03/21/2025 3:30 PM EDT Nutrition Bariatric Surgery [address] [phone] Overweight (Primary Dx) 03/08/2025 Telephone Bariatric Surgery [address] [phone] Vivian Dhillon MD Advice Only (MRI abdomen) 02/15/2025 10:30 AM EDT Telemedicine Bariatric Surgery [address] [phone] Overweight (Primary Dx) 02/07/2025 3:45 PM EDT Office Visit Bariatric Surgery [address] [phone] Vivian Dhillon MD S/P gastric sleeve procedure (Primary Dx); Overweight (BMI 25.0-29.9); Weight gain from Last 3 Months Surgical History Surgery Date Site/Laterality Comments APPENDECTOMY PROCEDURE: [place] APPENDECTOMY Social History Tobacco Use Types Packs/Day Years Used Date Smoking Tobacco: Never Smokeless Tobacco: Never Tobacco Cessation:Counseling Given: Not Answered Alcohol Use Standard Drinks/Week Comments Yes 0 [...] Mass Index 25.99 04/04/2025 3:57 PM EDT Plan of Treatment Upcoming Encounters Date Type Department Care Team (Late st Contact Info) Description 05/16/2025 4:00 PM EDT Office Visit Bariatric Surgery [address] [phone] Vivian Dhillon MD [address] [phone] 06/08/2025 12:00 PM EDT Telemedicine Bariatric Surgery [address] [phone] [phone] 2025 9:30 AM EDT Nutrition Bariatric Surgery [address] [phone] [phone] Health Maintenance Due Date Last Done Comments Breast Cancer Screening 1970 DTaP,Tdap,and Td Vaccines (1 - Tdap) 1989 Hepatitis B Vaccines (1 of 3 - 19+ 3-dose series) 1989 Cervical Cancer Screening: P ap Smear 1991 Colorectal Cancer Screening: Colonoscopy 09/28/2019 HIV Screening 09/28/2019 Hepatitis C Screening 09/28/2019 Social Influencers of Health Screening 09/28/2019 Pneumococcal Vaccine: 50+ Years (1 of 1 - PCV) 2020 Zoster Vaccines (1 of 2) 2020 COVID-19 Vaccine (1 - 2023-2 5 season) 2024 Depression Screening 09/13/2024 Influenza Vaccine (#1) 2025 , 08/27/2023 Cholesterol Screening (Lipid Panel) 09/10/2028 09/10/2023 HIB [...] to complete this topic RSV Immunization Patients Under 20 months Aged Out No longer eligible b ased on patient's age to complete this topic Varicella Vaccines Aged Out No longer eligible based on patient's age to complete this topic Procedures Procedure Name Priority Date/Time Associated Diagnosis Comments CBC WITH AUTO DIFFERENTIAL Routine 04/04/2025 2:44 PM EDT S/P gastric sleeve procedure ZINC Routine 04/04/2025 2:44 PM EDT S/P gastric sleeve procedure VITAMIN D 25 HYDROXY Routine 04/04/2025 2:44 PM EDT S/P gastric sleeve procedure VITAMIN B6 Routine 04/04/2025 2:44 PM EDT S/P gastric sleeve procedure VITAMIN B12 Routine 04/04/2025 2:44 PM EDT S/P gastric sleeve procedure IRON AND TIBC Routine 04/04/2025 2:44 PM EDT S/P gastric sleeve procedure FOLATE Routine 04/04/2025 2:44 PM EDT S/P gastric sleeve procedure COMPREHENSIVE METABOLIC PANEL Routine 04/04/2025 2:44 PM EDT S/P gastric sleeve procedure CBC AND DIFFERENTIAL Routine 04/04/2025 2:44 PM EDT S/P gastric sleeve procedure LIPID PANEL Routine 09/10/2023 from Last 3 Months or Most Recently Relevant to Health Maintenance Results * (ABNORMAL) CBC auto differential (04/04/2025 2:44 PM EDT) [facility] WBC 4.3(L) 4.8 - 10.8 K/mcL LAB HEMETOLOGY METHOD 04/04/2025 3:38 PM EDT [facility] RBC 4.30 3.80 - 4.80 M/mcL LAB HEMETOLOGY METHOD 04/04/2025 3:38 PM EDT [facility] Hemoglobin 11.5 11.5 - 16.0 g/dL LAB HEMETOLOGY METHOD 04/04/2025 3:38 PM EDT [facility] Hematocrit 35.8 35.0 - 47.0 % LAB HEMETOLOGY METHOD 04/04/2025 3:38 PM EDT [facility] MCV 83.6 79.0 - 98.0 FL LAB HEMETOLOGY METHOD 04/04/2025 3:38 PM EDT [facility] MCH 26.9(L) 27.0 - 32.0 pcg LAB HEMETOLOGY METHOD 04/04/2025 3:38 PM EDT [facility] MCHC 32.1 32.0 - 37.0 g/dL LAB HEMETOLOGY METHOD 04/04/2025 3:38 PM EDT [facility] RDW 13.6 11.0 - 15.0 % LAB HEMETOLOGY METHOD 04/04/2025 3:38 PM EDT [facility] Platelets 342 130 - 400 K/mcL LAB [facility]OLOG[facility] MPV 10.6 7.0 - 11.0 FL LAB HEMETOLOGY METHOD 04/04/2025 3:38 [facility] NRBC 0.0 <1.0 % LAB HEMETOLOGY METHOD 04/04/2025 3:38 [facility] NRBC Absolute 0.00 <0.10 K/mcL LAB HEMETOLOGY METHOD 04/04/2025 3:38 [facility] Neutrophils Relative 44.2 % LAB HEMETOLOGY METHOD 04/04/2025 3:38 PM [facility] Lymphocytes Relative 43.0 % LAB HEMETOLOGY METHOD 04/04/2025 3:38 PM T [facility] Monocytes Relative 9.8 % LAB HEMETOLOGY METHOD 04/04/2025 3:38 PM [facility] Eosinophils Relative 2.3 % LAB HEMETOLOGY METHOD 04/04/2025 3:38 PM [facility] Basophils Relative 0.5 % LAB HEMETOLOGY METHOD 04/04/2025 3:38 PM [facility] Immature Granulocytes Relative 0.2 % LAB HEMETOLOGY METHOD 04/04/2025 3:38 PM [facility] Neutrophils Absolute 1.89 1.50 - 7.00 K/mcL LAB HEMETOLOGY METHOD 04/04/2025 3[facility] Lymphocytes Absolute 1.84 1.00 - 5.00 K/mcL LAB HEMETOLOGY METHOD 04/04/2025 3:38 [facility] Monocytes Absolute 0.42 0.20 - 1.00 K/mcL LAB HEMETOLOGY METHOD 04/04/2025 3:38 PM EDT [facility] Eosinophils Absolute 0.10 0.00 - 0.50 K/[facility] LAB HEMETOLOGY METHOD 04/04/2025 3:38 PM EDT [facility] Basophils Absolute 0.02 0.00 - 0.20 K/mcL LAB HEMETOLOGY METHOD 04/04/2025 3:38 PM EDT [facility] Immature Granulocytes Absolute 0.01 0.00 - 0.03 K/[facility] LAB HEMETOLOGY METHOD 04/04/2025 3:38 PM EDT [facility] Blood Venous blood specimen / Unknown Venipuncture / Unknown 04/04/2025 2:44 PM EDT 04/04/2025 3:25 PM EDT us Vivian Dhillon MD LAB BLOOD ORDERABLES Fi nal Result Performing Organization Address City/[facility]/ZIP Co de Phone Number [facility] [address] [place] [address], [place] [phone] * Iron and TIBC (04/04/2025 2:44 PM EDT) Iron 105 40 - 150 mcg/dL LAB CHEMISTRY METHOD 04/04/2025 4:26 PM EDT [facility] TIBC 317 250 - 450 mcg/dL LAB CHEMISTRY METHOD 04/04/2025 4:26 PM EDT [facility] Iron Saturation 33 15 - 50 % LAB CHEMISTRY METHOD 04/04/2025 4:26 PM EDT [facility] Blood Venous blood specimen / Unknown Venipuncture / Unknown 04/04/2025 2:44 PM EDT 04/04/2025 3:26 PM EDT us Vivian Dhillon MD LAB BLOOD ORDERABLES Fi nal Result [facility] [address] [place] [address], * Zinc (04/04/2025 2:44 PM EDT) [facility] Zinc 89 60 - 130 ug/dL 04/09/2025 12:43 PM EDT [facility] Comment: Elevated results may be due to sample collected in a non-certified trace element-free tube. This test was developed and the performance characteristics determined by [facility]. It has not been cleared or approved by the FDA. The laboratory is regulated under CLIA as qualified to perform high-complexity testing. This test is used for patient testing purposes. It should not be regarded as investigational or for research. Test performed at [facility], [email or web address] [place] [address] Marla Adan MD, PhD - Extension Work Director Blood Venous blood specimen / Unknown Venipuncture / Unknown 04/04/2025 2:44 PM EDT 04/04/2025 3:25 PM EDT us Vivian Dhillon MD LAB BLOOD ORDERABLES Fi nal Result Performing Organization Address City/[facility]/ZIP Co de Phone Number [facility] [email or web address] [place] [address] * (ABNORMAL) Vitamin D 25 hydroxy (04/04/2025 2:44 PM EDT) [facility] Vit D, 25-Hydroxy 28.8(L) 30.0 - 80.0 ng/mL LAB CHEMISTRY METHOD 04/04/2025 4:46 PM EDT [facility] Blood Venous blood specimen / Unknown Venipuncture / Unknown 04/04/2025 2:44 PM EDT 04/04/2025 3:26 PM EDT us Vivian Dhillon MD LAB BLOOD ORDERABLES Fi nal Result [facility] [address] [place] [address], [place] [phone] * Vitamin B6 (04/04/2025 2:44 PM EDT) [facility] Vitamin B6 (Pyridoxine) Level 12 5 - 50 ug/L 04/10/2025 10:45 AM EDT [facility] Comment: This test was developed and the performance characteristics determined by [facility]. It has not been cleared or approved by the FDA. The laboratory is regulated under CLIA as qualified to perform high-complexity testing. This test is used for patient testing purposes. It should not be regarded as investigational or for research. Test performed at [facility], [email or web address] , [place] [address] Marla Adan MD, PhD - Extension Work Director Blood Venous blood specimen / Unknown Venipuncture / Unknown 04/04/2025 2:44 PM EDT 04/04/2025 3:25 PM EDT us Vivian Dhillon MD LAB BLOOD ORDERABLES Fi nal Result [facility] [address] [place] [address] * Folate (04/04/2025 2:44 PM EDT) [facility] Folate 9.6 2.8 - 17.0 ng/ml LAB CHEMISTRY METHOD 04/04/2025 4:49 PM EDT [facility] Blood Venous blood specimen / Unknown Venipuncture / Unknown 04/04/2025 2:44 PM EDT 04/04/2025 3:26 PM EDT us Vivian Dhillon MD LAB BLOOD ORDERABLES Fi nal Result [facility] [address] [place] [address], [place] [phone] * (ABNORMAL) Vitamin B12 (04/04/2025 2:44 PM EDT) [facility] Vitamin B-12 218(L) 250 - 900 pcg/mL LAB CHEMISTRY METHOD 04/04/2025 4:49 PM T [facility] Blood Venous blood specimen / Unknown Venipuncture / Unknown 04/04/2025 2:44 PM EDT 04/04/2025 3:26 PM EDT Vivian Dhillon MD LAB BLOOD ORDERABLES Fi nal Result [facility] [address] [place] [address], * (ABNORMAL) Comprehensive metabolic panel (04/04/2025 2:44 PM EDT) [facility] Sodium 139 133 - 145 mmol/L LAB CHEMISTRY METHOD 04/04/2025 4:49 PM [facility] Potassium 4.0 3.5 - 5.5 mmol/L LAB CHEMISTRY METHOD 04/04/2025 4:49 PM [facility] Chloride 105 96 - 110 mmol/L LAB CHEMISTRY METHOD 04/04/2025 4:49 PM [facility] CO2 28 21 - 32 mmol/L LAB CHEMISTRY METHOD 04/04/2025 4:49 PM [facility] Anion Gap 6 3 - 11 LAB CHEMISTRY METHOD 04/04/2025 4:49 PM [facility] Glucose 104(H) 70 - 100 mg/dL LAB CHEMISTRY METHOD 04/04/2025 4:49 PM [facility] BUN 16 5 - 25 mg/dL LAB CHEMISTRY METHOD 04/04/2025 4:49 PM [facility] Creatinine 0.82 0.50 - 1.10 mg/dL LAB CHEMISTRY METHOD 04/04/2025 4:49 PM [facility] eGFR 85 >=60 mL/min/1. 73m2 LAB CHEMISTRY METHOD 04/04/2025 4:49 PM T [facility] Comment:Calculation based on the Chronic Kidney Disease Epidemiology Collaboration (CKD-EPI) equation refit without adjustment for race. BUN/Creatinine Ratio 19.5 LAB CHEMISTRY METHOD 04/04/2025 4:49 PM EDT [facility] Calcium 8.9 8.5 - 10.5 mg/dL LAB CHEMISTRY METHOD 04/04/2025 4:49 PM EDT [facility] AST (SGOT) 22 10 - 42 unit/L LAB CHEMISTRY METHOD 04/04/2025 4:49 PM [facility] ALT (SGPT) 32 10 - 60 unit/L LAB CHEMISTRY METHOD 04/04/2025 4:49 PM [facility] Alkaline Phosphatase 106 42 - 121 unit/L LAB CHEMISTRY METHOD 04/04/2025 4:49 PM [facility] Total Protein 6.9 6.0 - 8.0 g/dL LAB CHEMISTRY METHOD 04/04/2025 4:49 PM [facility] Albumin 4.0 3.2 - 5.0 g/dL LAB CHEMISTRY METHOD 04/04/2025 4:49 PM [facility] Total Bilirubin 0.3 0.0 - 1.4 mg/dL LAB CHEMISTRY METHOD 04/04/2025 4:49 PM T [facility] Blood Venous blood specimen / Unknown Venipuncture / Unknown 04/04/2025 2:44 PM EDT 04/04/2025 3:26 PM EDT us Vivian Dhillon MD LAB BLOOD ORDERABLES Fi nal Result [facility] [address] [place] [address], [place] [phone] * (ABNORMAL) Lipid panel (09/10/2023) LDL/HDL Ratio 4 0 - 4 Triglycerides 175(A) 0 - 150 mg/dL Cholesterol 228(A) 0 - 200 mg/dL HDL 60 >=40 mg/dL LDL Cholesterol 133(A) 0 - 100 mg/dL Blood Venous blood specimen / Unknown us Historical Provider LAB BLOOD ORDERABLES Arcelia l Result from Last 3 Months or Most Recently Relevant to Health Maintenance Insurance * Guarantor: Felix Huntley Account Type Relation to Patient Date of Phone Billing Address Personal/Family Self 1970 [address] [facility] [address] [place] [address] [facility] Nursing Home Quality PLAN Care Teams Lube Technician Relationship Specialty Start Date End Date Landry Palomo MD [facility] [address] [place] [address] [address] [place] [address] PCP - General 08/12/22
== END 2025-04-10 15:52 | disposition home or self-care (01) ==
LOC: HO.HOS 14:49
PROVIDERS: PCP Internal Medicine; Visit Provider Orthopaedic Surgery
DX: M18.0 Bilateral primary osteoarthritis of first carpometacarpal joints (principal); E11.65 Type 2 diabetes mellitus with hyperglycemia
CPT/HCPCS: 20600; 99213

== ENCOUNTER → 2025-04-10 14:51 | Outpatient (BNV) | payer OTHER, SELFPAY | PROVIDERS: Visit Provider Radiology Diagnostic Radiology | DX: M18.11 Unilateral primary osteoarthritis of first carpometacarpal joint, right hand (principal) | CPT/HCPCS: 73130 ==

== ENCOUNTER 2025-05-08 13:41 | Outpatient (AMB) | payer OTHER, SELFPAY ==
--- OUTSIDE RECORDS SUMMARY | 2018-05-16 05:56 | XMS_ITS | Continuity of Care Document ---
Author Organization [facility] Address [address] [place] [address] Phone Care Team Providers Care Flask Pusher Name Role Phone El RIVERA, PhD, JUN, [...] Diagnoses Date Provider Providers Copied on Encounter [facility], [address] [place] [address], [address] [place] [address], tel:[phone] Sleep No Information El Taylor. [address] [place] [address], [address] [place] [address], . tel:[phone] Office/Outpat ient Visit, Est [facility], [address] [place], [place], [id number], tel:[phone] Morrison Earache (chief complaint) Otalgia MD Vinnie Morrison. [facility], [address] [facility], [address]nd [address], [place], [address], [place]. tel:[phone] Office/Outpat ient Visit, [facility], [address] [facility], [place], [place], [id number], tel:[phone] Tamiko Earache (chief complaint) OtalgiaOtalgia MD Vinnie Morrison. [facility], [address] [facility], [address], [place], [address], [place]. tel:[phone] Family History Family Member Type Diagnosis Age At Onset Father Problem (finding) Daughter Problem (finding) Allergies Mother Problem (finding) Thyroid disease Father Problem (finding) out pt surgery Daughter Problem (finding) Family history of asthm a Payers Payer name Insurance type Covered libertarian ID Authoriza tion(s) CD[employer] MEDICAID [place] [id number] Social History Type Description Quantity Date Captured [...]
--- NOTE | 2025-05-08 14:04 | MHC.OFFVIS ---
Vital Signs 05/08/25 14:07 Height 5 ft 5 in Weight 161 lb BMI 26.8 Intake Visit Reasons: Inj-Left basal injection Intake Note: Felix 54 yr old female presents today for her left basal joint O.A pain. Patient is s/p left basal joint arthritis, S/P injection. Date of injection: 01/09/25. States injection did not help. States it probably lasted about 1 week and then her pain returned. Patient would like to discuss other treatment options. Allergies Penicillins Allergy (Intermediate, Verified 05/08/25 14:10) Hives HPI HPI Inj-Left basal injection: Details: Felix is a 54 year old right hand dominant woman who returns to discuss her left basal joint arthritis. She was last seen for a right basal joint injection on 04/10/25, with good relief, and a Hx of a left basal joint injection on 01/09/25, which gave her good relief for a few weeks. She complains of left thumb pain. worse with pinching & gripping activities. She would like an injection today. She also had some questions about possible surgery. She says she has several days of pain following her injections, though her right side injection was not as painful as her previous left She reports bilateral hand numbness and says she has known bilateral carpal tunnel syndrome, L>R. Her last NCS was done in 2016. She denies any locking or catching. 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 [facility] Medical History Postmenopausal HRT (hormone replacement therapy) Overweight with body mass index (BMI) of 26 to 26.9 in adult History of mammogram (~10/13/24) Chronic headaches Memory changes Hormone replacement therapy Cervical cancer screening (~03/18/22) Pruritus Type II diabetes mellitus History of PCOS Moderate major depression Anxiety Post menopausal syndrome Vaginal dryness Dark brown-colored urine Hyperlipemia Vulvar candidiasis Abnormal EKG Fatigue Vertigo Well woman exam Depression Right knee pain Cervical muscle strain Dysuria Diabetes mellitus GERD (gastroesophageal reflux disease) Essential hypertension History of PCOS Obesity (BMI 30-39.9) Hypertension Surgical History History of gastric bypass History of gastric surgery H/O: hysterectomy History of partial hysterectomy Family History Mother No problems noted. Father No problems noted. Brother No problems noted. Brother No problems noted. Sister No problems noted. Son No problems noted. Son No problems noted. Daughter No problems noted. 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 Current occupational exposures/hazards: No Cognitive needs: No Hearing needs: No Vision needs: Yes Review of Systems Const All systems reviewed & are unremarkable except as noted in HPI and below Physical Exam Vital Signs: BMI result Body Mass Index 26.8 Const General: no acute distress and alert Orientation/consciousness: patient oriented x3 Neuro General: patient oriented x3 Extrem Other: Evaluation of Left Upper Extremity: The patient is alert, oriented, and in no acute distress Neuro: Median, Ulnar, Radial nerves motor and sensory intact and sensation is normal to the tips of all digits No thenar or intrinsic wasting Good APB muscle belly firing and good finger cross Vascular: Cap refill brisk ROM: She can make a fist and extend all her digits No locking or catching Skin: No lacerations or abrasions. General: No Ecchymosis. No Erythema or evidence of infection. Most tender over the basal joint Pos shoulder sign Pos CMC grind No tenderness over the 1st dorsal compartment No tenderness over the a1 jasmin No tenderness over the MCP joint Radiographs: 3 views of the left hand were taken and viewed by me today in clinic. They show no fractures or dislocations. She has basal joint arthritis with joint space narrowing, osteophyte formation, and subchondral sclerosis. She also has arthritic changes in multiple PIP & DIP joints. Psych Appearance: grossly normal Affect: normal affect Attitude: cooperative Office Procedures AMB Fracture Care Details: No fracture, injection Fracture Billing Code: Fracture Billing Code Assessment & Plan Assessment & Plan (1) Arthritis of carpometacarpal (CMC) joint of left thumb: Code(s): M18.12 - Unilateral primary osteoarthritis of first carpometacarpal joint, left hand Category: Medical (2) Arthritis of carpometacarpal (CMC) joint of right thumb: Code(s): M18.11 - Unilateral primary osteoarthritis of first carpometacarpal joint, right hand Category: Medical (3) Type 2 diabetes mellitus with hyperglycemia: Code(s): E11.65 - Type 2 diabetes mellitus with hyperglycemia Category: Medical Plan Assessment & Plan: 1. Left basal joint arthritis, S/P injection Date of injection: 05/08/25, 01/09/25 I educated her about this condition I discussed operative and non-operative treatment options The patient would like to proceed with an injection I discussed activity modification, they should limit or avoid any heavy or repetitive pinching or gripping activities She should continue to wear her comfort cool brace with daily activities She should work on ROM exercises, and avoid any gripping or strengthening activities I discussed the use of assistive devices for daily activity Injection #1: The risks and benefits of a steroid injection including but not limited to risk of damage to blood vessels, nerve, tendon, infection, skin bleaching, persistent or worsening pain, and failure to improve symptoms were discussed with the patient and they wish to proceed with the steroid injection. Once consent was obtained the skin over the dorsum of the Left basal joint was sterilely prepped. The joint was then injected with a combination of 1 mL of (4 mg/ml} Dexamethasone and 0.5% plain Lidocaine. The patient appears to have tolerated the procedure well and with no complications. She had good early relief before leaving clinic today. She knows that they may not have another steroid injection into this joint for least 4 months. 2. Right basal joint arthritis, S/P injection Date of injection: 04/10/25 3. 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 Bilateral carpal tunnel syndrome, based on patient report NCS done in 2016, no copy available today No complaints today sxs occasional If her symptoms increase in frequency or severity, she can follow up to discuss possible treatment options Scribed for Karlie Hernandez MD by Don Seaman, medical numerical control operator, on 05/08/25 at 2:25 PM, EST. Coding Level of Care Code Est Pt Level 4 (62568) Diagnoses Arthritis of carpometacarpal (CMC) joint of left thumb M18.12 Arthritis of carpometacarpal (CMC) joint of right thumb M18.11 Type 2 diabetes mellitus with hyperglycemia E11.65 CPT Codes Fracture Care - Fracture Billing Code: Fracture Billing Code ([id number])
[2025-05-08 14:07] VITALS: BMI 26.8
--- OUTSIDE RECORDS SUMMARY | 2025-05-08 14:40 | XMS_ITS | Clinical Summary ---
Author Organization [facility] Address [address] [place] [address] Phone Care Team Providers Care Mass Spectrometry Manager Name Role Phone Landry Palomo MD Primary Care Provider [phone] Allergies Active Allergy Reactions Criticality Noted Date [...] 4:00 PM EDT Office Visit Bariatric Surgery [address] [phone] Vivian Dhillon MD S/P gastric sleeve procedure (Primary Dx); Overweight; Weight gain; Inactivity 03/21/2025 3:30 PM EDT Nutrition Bariatric Surgery [address] [phone] [address] Overweight (Primary Dx) 03/08/2025 Telephone Bariatric Surgery [address] [phone] Vivian Dhillon MD 02/15/2025 10:30 AM EDT Telemedicine Bariatric Surgery [address] [phone] Overweight (Primary Dx) 02/07/2025 3:45 PM EDT Office Visit Bariatric Surgery [address] [phone] Vivian Dhillon MD S/P gastric sleeve procedure [...] 4:00 PM EDT Office Visit Bariatric Surgery [facility] [address] [phone] Vivian Dhillon MD [address] [place] [phone] 2025 9:30 AM EDT Nutrition Bariatric Surgery [facility] [address] [phone] Martita Galeano, RD [address] [phone] Health Maintenance Due Date Last Done [...] CBC auto differential (04/04/2025 2:44 PM EDT) [facility] WBC 4.3(L) 4.8 - 10.8 K/mcL LAB HEMETOLOGY METHOD 04/04/2025 3:38 PM EDT [facility] RBC 4.30 3.80 - 4.80 M/mcL [facility] Hemoglobin 11.5 11.5 - 16.0 g/dL LAB HEMETOLOGY METHOD 04/04/2025 3:38 PM EDT [facility] Hematocrit 35.8 35.0 - 47.0 % LAB HEMETOLOGY METHOD 04/04/2025 3:38 PM EDT [facility] MCV 83.6 79.0 - 98.0 FL LAB HEMETOLOGY METHOD 04/04/2025 3:38 PM EDT [facility] MCH 26.9(L) 27.0 - 32.0 pcg LAB HEMETOLOGY METHOD 04/04/2025 3:38 PM EDT [facility] MCHC 32.1 32.0 - 37.0 g/dL LAB HEMETOLOGY METHOD 04/04/2025 3:38 PM EDT [facility] RDW 13.6 11.0 - 15.0 % LAB HEMETOLOGY METHOD 04/04/2025 3:38 PM EDT [facility] Platelets 342 130 - 400 K/mcL LAB HEMETOLOGY METHOD 04/04/2025 3:38 PM EDT [facility] MPV 10.6 7.0 - 11.0 FL LAB HEMETOLOGY METHOD 04/04/2025 3:38 PM EDT [facility] NRBC 0.0 <1.0 % LAB HEMETOLOGY METHOD 04/04/2025 3:38 PM EDT [facility] NRBC Absolute 0.00 <0.10 K/mcL LAB HEMETOLOGY METHOD 04/04/2025 3:38 PM EDT [facility] Neutrophils Relative 44.2 % LAB HEMETOLOGY METHOD 04/04/2025 3:38 PM EDT [facility] Lymphocytes Relative 43.0 % LAB HEMETOLOGY METHOD 04/04[facility]2025 3[facility] Monocytes Relative 9.8 % LAB HEMETOLOGY METHOD 04/04/2025 3:[facility] Eosinophils Relative 2.3 % LAB HEMETOLOGY METHOD 04/04/2025 3:38 PM [facility] Basophils Relative 0.5 % LAB HEMETOLOGY METHOD 04/04/2025 3:38 PM [facility] Immature Granulocytes Relative 0.2 % LAB HEMETOLOGY METHOD 04/04/2025 3:38 PM [facility] Neutrophils Absolute 1.89 1.50 - 7.00 K/mcL LAB HEMETOLOGY METHOD 04/04/2025 3:38 PM EDT [facility] Lymphocytes Absolute 1.84 1.00 - 5.00 K/mcL LAB HEMETOLOGY METHOD 04/04/2025 3:[facility] Monocytes Absolute 0.42 0.20 - 1.00 K/mcL LAB HEMETOLOGY METHOD 04/04/2025 3:[facility] Eosinophils Absolute 0.10 0.00 - 0.50 K/mcL LAB HEMETOLOGY METHOD 04/04/2025 3:38 PM EDT [facility] Basophils Absolute 0.02 0.00 - 0.20 K/[facility] LAB HEMETOLOGY METHOD 04/04/2025 3:38 PM EDT [facility] Immature Granulocytes Absolute 0.01 0.00 - 0.03 /[facility] LAB HEMETOLOGY METHOD 04/04/2025 3:38 PM EDT [facility] Blood Venous blood specimen / Unknown Venipuncture / Unknown 04/04/2025 2:44 PM EDT 04/04/2025 3:25 PM EDT us Vivian Dhillon MD LAB BLOOD ORDERABLES Fi nal Result Performing Organization Address [facility] Co de Phone Number [facility] [address] [place] [address], * Iron and TIBC (04/04/2025 2:44 PM EDT) Iron 105 40 - 150 mcg/dL LAB CHEMISTRY METHOD 04/04/2025 4:26 PM EDT [facility] TIBC 317 250 - 450 mcg/dL LAB CHEMISTRY METHOD 04/04/2025 4:26 PM EDT [facility] Iron Saturation 33 15 - 50 % LAB CHEMISTRY METHOD 04/04/2025 4:26 PM EDT [facility] Blood Venous blood specimen / Unknown Venipuncture / Unknown 04/04/2025 2:44 PM EDT 04/04/2025 3:26 PM EDT us Vivian Dhillon MD LAB BLOOD ORDERABLES Fi nal Result Performing Organization Address [facility]/ZIP Co de Phone Number [facility] [address] [place] [address], [place] [phone] * Zinc (04/04/2025 2:44 PM EDT) Zinc 89 60 - 130 ug/dL 04/09/2025 12:43 PM EDT [facility] Comment: Elevated results may be due to sample collected in a non-certified trace element-free tube. This test was developed and the performance characteristics determined by [facility]. It has not been cleared or approved by the FDA. The laboratory is regulated under CLIA as qualified to perform high-complexity testing. This test is used for patient testing purposes. It should not be regarded as investigational or for research. Test performed at [facility], [address] , [place] [address] Marla Adan MD, PhD - Accounting Recruiter Blood Venous blood specimen / Unknown Venipuncture / Unknown 04/04/2025 2:44 PM EDT 04/04/2025 3:25 PM EDT Vivian Dhillon MD LAB BLOOD ORDERABLES Fi nal Result [facility] [address] [place] [address] * Selenium serum (04/04/2025 2:44 PM EDT) [...] potential heavy metal sources. Refer to the [employer] Directory of Services for proper specimen collection information. This test was developed and its analytical performance characteristics have been determined by [facility] [place], [place]. It has not been cleared or approved by the U.S. Food and Drug Administration. This assay has been validated pursuant to the CLIA regulations and is used for clinical purposes. Test Performed by [facility], [facility], [address] [place], [place] Sammy Willingham M.D., Ph.D., Director of Laboratories , CLIA [id number] Blood Venous blood specimen / Unknown Venipuncture / Unknown 04/04/2025 2:44 PM EDT 04/04/2025 3:25 PM EDT us Vivian Dhillon MD LAB BLOOD ORDERABLES Fi nal Result [facility] [address] [place] [address] * (ABNORMAL) Vitamin D 25 hydroxy (04/04/2025 2:44 PM EDT) Vit D, 25-Hydroxy 28.8(L) 30.0 - 80.0 ng/mL LAB CHEMISTRY METHOD 04/04/2025 4:46 PM EDT [facility] Blood Venous blood specimen / Unknown Venipuncture / Unknown 04/04/2025 2:44 PM EDT 04/04/2025 3:26 PM EDT us Vivian Dhillon MD LAB BLOOD ORDERABLES Fi nal Result Performing Organization Address City/[facility]/ZIP Co de Phone Number [facility] [address] [place] [address], * Vitamin B1 (04/04/2025 2:44 PM EDT) Vitamin B1 Whole Blood 52 38 - 122 ug/L 04/11/2025 6:12 AM EDT [facility] Comment: This test was developed and the performance characteristics determined by [facility]. It has not been cleared or approved by the FDA. The laboratory is regulated under CLIA as qualified to perform high-complexity testing. This test is used for patient testing purposes. It should not be regarded as investigational or for research. Test performed at [facility], [address] , [place], [place] [id number] Marla Adan MD, PhD - Accounting Recruiter Blood Venous blood specimen / Unknown Venipuncture / Unknown 04/04/2025 2:44 PM EDT 04/04/2025 3:25 PM EDT us Vivian Dhillon MD LAB BLOOD ORDERABLES Fi nal Result Performing Organization Address City/[facility]/ZIP Co de Phone Number [facility] [address] [place] [address] * Vitamin B6 (04/04/2025 2:44 PM EDT) Vitamin B6 (Pyridoxine) Level 12 5 - 50 ug/L 04/10/2025 10:45 AM EDT [facility] Comment: This test was developed and the performance characteristics determined by [facility]. It has not been cleared or approved by the FDA. The laboratory is regulated under CLIA as qualified to perform high-complexity testing. This test is used for patient testing purposes. It should not be regarded as investigational or for research. Test performed at [facility], [address], [place] [address] Marla Adan MD, PhD - Accounting Recruiter Blood Venous blood specimen / Unknown Venipuncture / Unknown 04/04/2025 2:44 PM EDT 04/04/2025 3:25 PM EDT us Vivian Dhillon MD LAB BLOOD ORDERABLES Fi nal Result Performing Organization Address City/[facility]/ZIP Co de Phone Number [facility] [address] [place] [address] * Folate (04/04/2025 2:44 PM EDT) Folate 9.6 2.8 - 17.0 ng/ml LAB CHEMISTRY METHOD 04/04/2025 4:49 PM EDT [facility] Blood Venous blood specimen / Unknown Venipuncture / Unknown 04/04/2025 2:44 PM EDT 04/04/2025 3:26 PM EDT us Vivian Dhillon MD LAB BLOOD ORDERABLES Fi nal Result Performing Organization Address [facility]/ZIP Co de Phone Number [facility] [address] [place] [address], [place] [phone] * (ABNORMAL) Vitamin B12 (04/04/2025 2:44 PM EDT) [facility] Vitamin B-12 218(L) 250 - 900 pcg/mL LAB CHEMISTRY METHOD 04/04/2025 4:49 PM EDT [facility] Blood Venous blood specimen / Unknown Venipuncture / Unknown 04/04/2025 2:44 PM EDT 04/04/2025 3:26 PM EDT us Vivian Dhillon MD LAB BLOOD ORDERABLES Fi nal Result Performing Organization Address [facility] de Phone Number [facility] [address] [place] [address], [place] [phone] * (ABNORMAL) Comprehensive metabolic panel (04/04/2025 2:44 PM EDT) [facility] Sodium 139 133 - 145 mmol/L LAB CHEMISTRY METHOD 04/04/2025 4:49 PM EDT [facility] Potassium 4.0 3.5 - 5.5 mmol/L LAB CHEMISTRY METHOD 04/04/2025 4:49 PM EDT [facility] Chloride 105 96 - 110 mmol/L LAB CHEMISTRY METHOD 04/04/2025 4:49 PM EDT [facility] CO2 28 21 - 32 mmol/L LAB CHEMISTRY METHOD 04/04/2025 4:49 PM EDT [facility] Anion Gap 6 3 - 11 LAB CHEMISTRY METHOD 04/04/2025 4:49 PM EDT [facility] Glucose 104(H) 70 - 100 mg/dL LAB CHEMISTRY METHOD 04/04/2025 4:49 PM EDT [facility] BUN 16 5 - 25 mg/dL LAB CHEMISTRY METHOD 04/04/2025 4:49 PM [facility] Creatinine 0.82 0.50 - 1.10 mg/dL LAB CHEMISTRY METHOD 04/04/2025 4:49 PM [facility] eGFR 85 >=60 mL/min/1. 73m2 LAB CHEMISTRY METHOD 04/04/2025 4:49 PM [facility] Comment:Calculation based on the Chronic Kidney Disease Epidemiology Collaboration (CKD-EPI) equation refit without adjustment for race. BUN/Creatinine Ratio 19.5 LAB CHEMISTRY METHOD 04/04/2025 4:49 PM [facility] Calcium 8.9 8.5 - 10.5 mg/dL LAB CHEMISTRY METHOD 04/04/2025 4:49 PM [facility] AST (SGOT) 22 10 - 42 unit/L LAB CHEMISTRY METHOD 04/04/2025 4:49 PM [facility] ALT (SGPT) 32 10 - 60 unit/L LAB CHEMISTRY METHOD 04/04/2025 4:49 PM [facility] Alkaline Phosphatase 106 42 - 121 unit/L LAB CHEMISTRY METHOD 04/04/2025 4:49 PM [facility] Total Protein 6.9 6.0 - 8.0 g/dL LAB CHEMISTRY METHOD 04/04/2025 4:49 PM [facility] Albumin 4.0 3.2 - 5.0 g/dL LAB CHEMISTRY METHOD 04/04/2025 4:49 PM [facility] Total Bilirubin 0.3 0.0 - 1.4 mg/dL LAB CHEMISTRY METHOD 04/04/2025 4:49 PM [facility] Blood Venous blood specimen / Unknown Venipuncture / Unknown 04/04/2025 2:44 PM EDT 04/04/2025 3:26 PM EDT Vivian Dhillon MD LAB BLOOD ORDERABLES Fi nal Result [facility] [address] [place] [address], * (ABNORMAL) Lipid panel (09/10/2023) LDL/HDL Ratio [...] Phone Billing Address Personal/Family Self 1970 [address] [facility] [address] [place] [address] [facility] [place] [address] Care Teams Mass Spectrometry Manager Relationship Specialty Start Date End Date Landry Palomo MD [facility] [address] [place] [address] [address] [facility] [place] [address] PCP - General 08/12/22
== END 2025-05-08 14:46 | disposition home or self-care (01) ==
LOC: HO.HOS 13:42
PROVIDERS: PCP Internal Medicine; Visit Provider Orthopaedic Surgery
DX: M18.0 Bilateral primary osteoarthritis of first carpometacarpal joints (principal); E11.65 Type 2 diabetes mellitus with hyperglycemia
CPT/HCPCS: 20600; 99214

== ENCOUNTER → 2025-05-08 13:41 | Outpatient (BNVA) | payer OTHER, SELFPAY | PROVIDERS: PCP Internal Medicine; Visit Provider Orthopaedic Surgery | DX: M18.12 Unilateral primary osteoarthritis of first carpometacarpal joint, left hand (principal); M18.11 Unilateral primary osteoarthritis of first carpometacarpal joint, right hand; E11.65 Type 2 diabetes mellitus with hyperglycemia | CPT/HCPCS: 20600; 99212; J1100; J2003 ==

== ENCOUNTER 2025-06-07 14:36 | Outpatient (REF) | payer OTHER, SELFPAY | END 2025-06-07 14:37 | disposition home or self-care (01) | LOC: HO.LNP 14:36 | PROVIDERS: PCP Internal Medicine; Visit Provider Obstetrics & Gynecology | DX: R23.2 Flushing (principal); R31.29 Other microscopic hematuria | CPT/HCPCS: 81002; 87086; 99212 ==

== ENCOUNTER 2025-06-07 14:36 | Outpatient (AMB) | payer OTHER, SELFPAY ==
--- OUTSIDE RECORDS SUMMARY | 2018-05-16 05:56 | XMS_ITS | Continuity of Care Document ---
Author Organization [facility] Address [address] [place] [address] Phone Care Team Providers Care Cathead Operator Name Role Phone El RIVERA, PhD, JUN, [...] Diagnoses Date Provider Providers Copied on Encounter [facility], [address] [place] [address], [address] [place] [address], tel:[phone] Sleep No Information El Taylor. [address] [place] [address], [address] [place] [address], . tel:[phone] Office/Outpat ient Visit, Est [facility], [address] [place], [place], [id number], tel:[phone] Morrison Earache (chief complaint) Otalgia MD Vinnie Morrison. [facility], [address] [facility], [address]nd [address], [place], [address], [place]. tel:[phone] Office/Outpat ient Visit, [facility], [address] [facility], [place], [place], [id number], tel:[phone] Tamiko Earache (chief complaint) OtalgiaOtalgia MD Vinnie Morrison. [facility], [address] [facility], [address]nd [address], [place], [address], [place]. tel:[phone] Family History Family Member Type Diagnosis Age At Onset Father Problem (finding) Daughter Problem (finding) Allergies Mother Problem (finding) Thyroid disease Father Problem (finding) out pt surgery Daughter Problem (finding) Family history of asthm a Payers Payer name Insurance type Covered libertarian ID Authoriza tion(s) CD[employer] MEDICAID [place] [id number] Social History Type Description Quantity Date Captured [...]
--- NOTE | 2025-06-07 14:47 | MHC.OFFVIS ---
Vital Signs 06/07/25 14:48 Height 5 ft 5 in Weight 161 lb BMI 26.8 BP 110/76 Intake Visit Reasons: HRT Internal Referral Side Puller Required: No Information Interpreted: non-clinical & clinical Accompanied by: Self / Same As Patient Allergies Penicillins Allergy (Intermediate, Verified 06/07/25 14:51) Hives Post menopausal: Yes HPI Comments Details: Presenting complaining of hot flashes brain fogginess, insomnia in addition to urinary frequency no dysuria The patient was prescribed preop for mild depression in 2021 a lot of her symptoms have improved markedly but gained a lot of weight and discontinued it after 3 months. The patient was recently prescribed citalopram 10 mg p.o. q.d. her PCP, the prescription is at the pharmacy Last co testing was negative in 2021, last mammogram was in 10/07 BI-RADS 1 Last colonoscopy was in [facility] Medical History Postmenopausal HRT (hormone replacement therapy) Overweight with body mass index (BMI) of 26 to 26.9 in adult History of mammogram (~10/13/24) Chronic headaches Memory changes Hormone replacement therapy Cervical cancer screening (~03/18/22) Pruritus Type II diabetes mellitus History of PCOS Moderate major depression Anxiety Post menopausal syndrome Vaginal dryness Dark brown-colored urine Hyperlipemia Vulvar candidiasis Abnormal EKG Fatigue Vertigo Well woman exam Depression Right knee pain Cervical muscle strain Dysuria Diabetes mellitus GERD (gastroesophageal reflux disease) Essential hypertension History of PCOS Obesity (BMI 30-39.9) Hypertension Surgical History History of gastric bypass History of gastric surgery H/O: hysterectomy History of partial hysterectomy Family History Mother No problems noted. Father No problems noted. Brother No problems noted. Brother No problems noted. Sister No problems noted. Son No problems noted. Son No problems noted. Daughter No problems noted. 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 Current occupational exposures/hazards: No Cognitive needs: No Hearing needs: No Vision needs: Yes Review of Systems Const All systems reviewed & are unremarkable except as noted in HPI and below Reports as per HPI and Reports no additional complaints GI Reports no additional complaints Reports no additional complaints Physical Exam Vital Signs: Last Vital Signs BP 110/76 06/07/25 14:48 BMI result Body Mass Index 26.8 Results AMB Urinalysis Dipstick UR Leukocytes Negative Last Edit by Ethel Baker, ENGINE REPAIR SUPERVISOR on 06/07/25 15:03 UR Nitrite Negative Last Edit by Ethel Baker, ENGINE REPAIR SUPERVISOR on 06/07/25 15:03 UR Urobilinogen Normal Last Edit by Ethel Pierreero, ENGINE REPAIR SUPERVISOR on 06/07/25 15:03 UR Protein Negative Last Edit by Ethel Baker, ENGINE REPAIR SUPERVISOR on 06/07/25 15:03 UR Ph 6.5 Last Edit by Ethel Baker, ENGINE REPAIR SUPERVISOR on 06/07/25 15:03 UR Blood Small Last Edit by Ethel Pierreero, ENGINE REPAIR SUPERVISOR on 06/07/25 15:03 UR Specific [place] 1.015 Last Edit by Ethel Baker, ENGINE REPAIR SUPERVISOR on 06/07/25 15:03 UR Ketone Negative Last Edit by Ethel Baker, ENGINE REPAIR SUPERVISOR on 06/07/25 15:03 UR Bilirubin Negative Last Edit by Ethel Baker, ENGINE REPAIR SUPERVISOR on 06/07/25 15:03 UR Glucose Negative Last Edit by Ethel Baker, ENGINE REPAIR SUPERVISOR on 06/07/25 15:03 Assessment & Plan Assessment & Plan (1) Hot flashes: Comment: With mood symptoms and brain fogginess Code(s): R23.2 - Flushing Category: Medical Plan: Discussed with the patient the options of treatment of hot flashes including estrogen replacement therapy, all the pros, cons, risks and benefits Options discussed with the patient include the following: SSRI/SNRIs , difficulty has been demonstrated in multiple trials clinical response is more rapid (days) than typical response to SSRI for depression (weeks), they are equally effective in natural versus surgical menopause, they have similar modest benefit for hot flashes; Since the patient was recently prescribed, recommended the patient to start her Citalopram and schedule three-month follow-up appointment with annual exam. All questions answered, the patient verbalized understanding (2) Microscopic hematuria: Code(s): R31.29 - Other microscopic hematuria Category: Medical Plan: Urine dip showed microscopic hematuria, urine culture sent. Will repeat urine dip in 2 weeks. Discussed with the patient the possible causes of microscopic hematuria including but not limited to: interstitial cystitis, polyps, stones, masses, urethral inflammatory processes and others. If Urine Culture is negative and repeat urine dip in 2 weeks shows persistent microscopic hematuria, will proceed with CT abdomen/pelvis and urology referral. Instructions given the patient to schedule a 2 week urine dip follow-up appointment. All questions answered and the patient verbalized understanding. Orders: Orders Urine Culture Today R31.29 - Other microscopic hematuria AMB Urinalysis Dipstick Today R31.29 - Other microscopic hematuria Coding Level of Care Code Est Pt Level 3 (78215) Diagnoses Hot flashes R23.2 Microscopic hematuria R31.29
[2025-06-07 14:48] VITALS: BP 110/76; BMI 26.8
== END 2025-06-07 15:34 | disposition home or self-care (01) ==
LOC: HO.HWS 14:36
PROVIDERS: PCP Internal Medicine; Visit Provider Obstetrics & Gynecology
DX: R23.2 Flushing (principal); R31.29 Other microscopic hematuria
CPT/HCPCS: 99213

== ENCOUNTER 2025-06-28 14:53 | Outpatient (AMB) | payer OTHER, SELFPAY ==
--- OUTSIDE RECORDS SUMMARY | 2018-05-16 05:56 | XMS_ITS | Continuity of Care Document ---
Author Organization [facility] Address [address] [place] [address] Phone Care Team Providers Care Rigging Up Worker Name Role Phone El RIVERA, PhD, JUN, Claudia Unavailable Un available Allergies, Adverse Reactions, Alerts Substance Reaction Status Criticality penicillin V Active No Information Medications Medication Instructions Dosage Effective Dates (start - stop) Status Comments nabumetone 750 mg tablet take 1 tablet (750MG) by oral route 2 times every day 750 MG - Active nabumetone 500 mg tablet take 1 tablet (500MG) by oral route 2 times every day 500 MG - Active ADDERALL (unknown strength) take 1 tablet by oral route every day before breakfast Not Available - Active APLENZIN (unknown strength) take 2 tablet by oral route every day in the morning Not Available - Active Procedures Procedure Date Office/Outpatient Visit, Est Office/Outpatient Visit, Est Advance Directives Directive Yes / No Effective Date File Name No Information Encounters Encounter Description Practice Location Reason(s) For Visit Diagnoses Date Provider Providers Copied on Encounter [facility], [address] [place] [address], [address] [place] [address], tel:[phone] Sleep No Information El Taylor. [address] [place] [address], [address] [place] [address], . tel:[phone] Office/Outpat ient Visit, Est [facility], [address] [place], [place], [id number], tel:[phone] Morrison Earache (chief complaint) Otalgia MD Vinnie Morrison. [facility], [address] [facility], [address]nd [address], [place], [address], [place]. tel:[phone] Office/Outpat ient Visit, [facility], [address] [facility], [place], [place], [id number], tel:[phone] Tamiko Earache (chief complaint) OtalgiaOtalgia MD Vinnei Morrison. [facility], [address] [facility], [address]nd [address], [place], [address], [place]. tel:[phone] Family History Family Member Type Diagnosis Age At Onset Father Problem (finding) Daughter Problem (finding) Allergies Mother Problem (finding) Thyroid disease Father Problem (finding) out pt surgery Daughter Problem (finding) Family history of asthm a Payers Payer name Insurance type Covered libertarian ID Authoriza tion(s) [employer] MEDICAID [place] [id number] Social History Type Description Quantity Date Captured Comments Sex Female Smoking Status No Information Chief Complaint And Reason For Visit No Information Reason For Referral Reason For Referral No Information History Of Present Illness Encounter Date Complaint History Of Prese nt Illness No Information Functional Status Date Functional Assessmen t No Information Instructions Date Instruction Additional Infor mation No Information Assessments Type Assessment Date No Information Patient Care Teams Name Effective Dates (start - stop) Status Members No Information
--- NOTE | 2025-06-28 14:58 | MHC.OFFVIS ---
Vital Signs 06/28/25 15:02 Height 5 ft 5 in Weight 161 lb BMI 26.8 Intake Visit Reasons: Inj. left shoulder injection-last on 03/22/25 Intake Note: Felix is a 55 year old woman who presents of left shoulder pain. She describes her pain as achy in nature. She has tried Tylenol and Celebrex which gave her mild relief. She denies any weakness. She has had cortisone injections which gave her fairly good relief. She wishes to hold off on surgery if at all possible. Allergies Penicillins Allergy (Intermediate, Verified 06/28/25 15:01) Hives Medication List - Last Reconciled 06/28/25 by Dominik Neville MD acetaminophen mg PO albuterol sulfate 90 mcg/actuation (Ventolin HFA) 2 puffs inhalation Q6H PRN aripiprazole 5 mg PO DAILY buspirone 10 mg PO DAILY celecoxib (Celebrex) 200 mg PO DAILY PRN cyanocobalamin (vitamin B-12) 500 mcg PO DAILY ergocalciferol (vitamin D2) 1,250 mcg PO QWEEK fexofenadine 180 mg PO DAILY hydrochlorothiazide 25 mg PO DAILY hydroxyzine HCl 25 mg PO TID PRN lisdexamfetamine (Vyvanse) 50 mg PO QAM losartan 50 mg PO DAILY meclizine 25 mg PO TID pantoprazole 40 mg PO DAILY sennosides-docusate sodium 8.6-50 mg (Senna Plus) 2 tab-caps (2 x 8.6-50 mg) PO BEDTIME sumatriptan succinate (Imitrex) take 1 tab at onset of headache; if no relief may repeat 1 tab after at least 2 hrs; max = 4 tabs/24 hr PO trazodone 50 mg PO BEDTIME PRN triamcinolone acetonide 0.5% 1 appl topical BID PFSH Medical History Postmenopausal HRT (hormone replacement therapy) Overweight with body mass index (BMI) of 26 to 26.9 in adult History of mammogram (~10/13/24) Chronic headaches Memory changes Hormone replacement therapy Cervical cancer screening (~03/18/22) Pruritus Type II diabetes mellitus History of PCOS Moderate major depression Anxiety Post menopausal syndrome Vaginal dryness Dark brown-colored urine Hyperlipemia Vulvar candidiasis Abnormal EKG Fatigue Vertigo Well woman exam Depression Right knee pain Cervical muscle strain Dysuria Diabetes mellitus GERD (gastroesophageal reflux disease) Essential hypertension History of PCOS Obesity (BMI 30-39.9) Hypertension Surgical History History of gastric bypass History of gastric surgery H/O: hysterectomy History of partial hysterectomy Family History Mother No problems noted. Father No problems noted. Brother No problems noted. Brother No problems noted. Sister No problems noted. Son No problems noted. Son No problems noted. Daughter No problems noted. 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 Current occupational exposures/hazards: No Cognitive needs: No Hearing needs: No Vision needs: Yes Physical Exam Vital Signs: BMI result Body Mass Index 26.8 Const Other: Well-nourished well-developed very friendly female awake alert and oriented x3 in no acute distress Extrem Other: Left shoulder examination shows almost full range of motion when compared to her right shoulder, 5/5 strength with supraspinatus testing, positive impingement signs Office Procedures AMB Joint Injection/Aspiration Joint Injection/Aspiration Primary Site: left shoulder Prep: site was prepped using aseptic technique Injected: 40 mg of, DepoMedrol and 1% plain lidocaine Procedure: The patient tolerated the procedure well Coding 65781 - Large joint Procedure code (CPT) selection complete Assessment & Plan Assessment & Plan (1) Impingement syndrome of left shoulder: Code(s): M75.42 - Impingement syndrome of left shoulder Category: Medical Plan Ms. Huntley presents with left shoulder pain due to impingement syndrome. The risks and benefits of a left shoulder cortisone injection were discussed at length with the patient. The patient wished to proceed. She tolerated the injection well. She will continue with her home stretching program to prevent stiffness. She will contact me prior to her follow-up appointment in 3 months should any questions or concerns arise. Feel free to call me at any time should questions regarding her orthopedic management arise. I spent 22 minutes in reviewing the patient's records and imaging studies, seeing the patient and documenting in the medical record. Orders: Orders AMB Joint Injection/Aspiration 06/28/25 M75.42 - Impingement syndrome of left shoulder Coding Level of Care Code Est Pt Level 3 (76618) Complex EM visit Add On G2211 Diagnoses Impingement syndrome of left shoulder M75.42 CPT Codes Coding - 40110 Large joint: 97904 - Large joint ([id number])
[2025-06-28 15:02] VITALS: BMI 26.8
--- OUTSIDE RECORDS SUMMARY | 2025-06-28 18:46 | XMS_ITS | Clinical Summary ---
Author Organization [facility] Address [address] [place] [address] Phone Care Team Providers Care Repair Technician Name Role Phone Landry Palomo MD Primary Care Provider [phone] Allergies Active Allergy Reactions Criticality Noted Date [...] g by mouth daily. - Oral Active ergocalciferol (VITAMIN D-2) 1,250 mcg (50,000 unit) capsule Take 1 capsule (50,000 Units total) by mouth 1 (one) time per week. 12 each 04/06/2025 6 Active cyanocobalamin (Vitamin B-12) 500 mcg tablet Take 1 tablet (500 mcg total) by mouth 1 (one) time each day. 30 each 2 04/06/2025 5 Active Active Problems Problem Noted Date Diagnosed Date Overweight 02/15/2025 Class 1 obesity with body ma ss index (BMI) of 31.0 to 31.9 in adult 06/20/2024 Encounters Date Type Department Care Team Description 05/29/2025 9:15 AM EDT Office Visit Bariatric Surgery - [address] [phone] Vivian Dhillon MD S/P bariatric surgery (Primary Dx); Weight gain; Overweight (BMI 25.0-29.9); Inactivity 04/04/2025 4:00 PM EDT Office Visit Bariatric Surgery - [address] [phone] Vivian Dhillon MD S/P gastric sleeve procedure (Primary Dx); Overweight; Weight gain; Inactivity from Last 3 Months Surgical History Surgery [...] Sign Reading Time Taken Comments Blood Pressure 159/99 05/29/2025 9:28 AM EDT Patient has coffee and food already and just took medication didnt take it first thing this am. Pulse 82 05/29/2025 9:28 AM EDT Temperature 36.4 C (97.6 F) 05/29/2025 9:28 AM EDT Respiratory Rate - - Oxygen Saturation - - Inhaled Oxygen Concentration - - Weight 77.1 kg (170 lb) 05/29/2025 9:28 AM EDT Height 165.1 cm (5' 5 ) 05/29/2025 9:28 AM EDT Body Mass Index 28.29 05/29/2025 9:28 AM EDT Plan of Treatment Upcoming Encounters Date Type Department Care Team (Late st Contact Info) Description 07/24/2025 3:30 PM EST Office Visit Bariatric Surgery [address] [phone] Vivian Dhillon MD [address] [place] [phone] 08/22/2025 8:30 AM EST Nutrition Bariatric Surgery - [place] [address] [phone] Froylan Martita, RD [address] [phone] 11/08/2025 1:45 PM EST Office Visit Bariatric Surgery - [place] [address] [phone] Pedro Hammond MD [address] [place] [phone] Health Maintenance Due Date Last Done Comments Breast Cancer Screening 1970 Colorectal Cancer Screening: Colonoscopy 1970 DTaP,Tdap,and Td Vaccines (1 - Tdap) 1989 Hepatitis B Vaccines (1 of 3 - 19+ 3-dose series) 1989 Cervical Cancer Screening: P ap Smear 1991 HIV Screening 09/28/2019 Hepatitis C Screening 09/28/2019 Social Influencers of Health Screening 09/28/2019 Pneumococcal Vaccine: 50+ Years (1 of 1 - PCV) 2020 Zoster Vaccines (1 of 2) 2020 Depression Screening 09/13/2024 COVID-19 Vaccine (1 - 2023-2 5 season) 2025 Influenza Vaccine (#1) 2025 5, 08/27/2023 Cholesterol Screening (Lipid Panel) 09/10/2028 09/10/2023 RSV Immunization Adult Patients (1 - 1-dose 75+ series) 2045 HIB Vaccines Aged Out No longer eligi [...] CBC auto differential (04/04/2025 2:44 PM EDT) WBC 4.3(L) 4.8 - 10.8 K/mcL LAB HEMETOLOGY METHOD 04/04/2025 3:38 PM EDT [facility] RBC 4.30 3.80 - 4.80 M/mcL LAB HEMETOLOGY METHOD 04/04/2025 3:38 PM EDT [facility] Hemoglobin 11.5 11.5 - 16.0 g/dL LAB [facility]EMETOLOGY [facility] Hematocrit 35.8 35.0 - 47.0 % LAB HEMETOLOGY METHOD 04/04/2025 3[facility] MCV 83.6 79.0 - 98.0 FL LAB HEMETOLOGY METHOD 04/04[facility]2025 3[facility] MCH 26.9(L) 27.0 - 32.0 pcg LAB HEMETOLOGY METHOD 04/04/2025 3:[facility] MCHC 32.1 32.0 - 37.0 g/dL LAB HEMETOLOGY METHOD 04/04/2025 3[facility] RDW 13.6 11.0 - 15.0 % LAB HEMETOLOGY METHOD 04/04/2025 3:[facility] Platelets 342 130 - 400 K/mcL LAB HEMETOLOGY METHOD 04/04/2025 3[facility] MPV 10.6 7.0 - 11.0 FL LAB HEMETOLOGY METHOD 04/04/2025 3:[facility] NRBC 0.0 <1.0 % LAB HEMETOLOGY METHOD 04/04/2025 3:38 PM EDT [facility] NRBC Absolute 0.00 <0.10 K/mcL LAB HEMETOLOGY METHOD 04/04/2025 3:38 [facility] Neutrophils Relative 44.2 % LAB HEMETOLOGY METHOD 04/04/2025 3:38 PM EDT [facility] Lymphocytes Relative 43.0 % LAB HEMETOLOGY METHOD 04/04/2025 3:38 PM EDT [facility] Monocytes Relative 9.8 % LAB HEMETOLOGY METHOD 04/04/2025 3:38 PM EDT [facility] Eosinophils Relative 2.3 % LAB HEMETOLOGY METHOD 04/04/2025 3:38 PM [facility] Basophils Relative 0.5 % LAB HEMETOLOGY METHOD 04/04[facility]2025 3[facility] Immature Granulocytes Relative 0.2 % LAB HEMETOLOGY METHOD 04/04/2025 3:38 PM [facility] Neutrophils Absolute 1.89 1.50 - 7.00 K/mcL LAB HEMETOLOGY METHOD 04/04/2025 3:38 PM [facility] Lymphocytes Absolute 1.84 1.00 - 5.00 K/mcL LAB HEMETOLOGY METHOD 04/04/2025 3:[facility] Monocytes Absolute 0.42 0.20 - 1.00 K/mcL LAB HEMETOLOGY METHOD 04/04/2025 3:[facility] Eosinophils Absolute 0.10 0.00 - 0.50 K/mcL LAB HEMETOLOGY METHOD 04/04/2025 3:38 PM [facility] Basophils Absolute 0.02 0.00 - 0.20 K/mcL LAB HEMETOLOGY METHOD 04/04/2025 3:38 [facility] Immature Granulocytes Absolute 0.01 0.00 - 0.03 K/mcL LAB HEMETOLOGY METHOD 04/04/2025 3:38 PM EDT [facility] Blood Venous blood specimen / Unknown Venipuncture / Unknown 04/04/2025 2:44 PM EDT 04/04/2025 3:25 PM EDT us Vivian Dhillon MD LAB BLOOD ORDERABLES Fi nal Result Performing Organization Address [facility]/State/ZIP Co de Phone Number [facility] [address] [place] [address], [place] [phone] * Iron and TIBC (04/04/2025 2:44 PM EDT) Iron 105 40 - 150 mcg/dL LAB CHEMISTRY METHOD 04/04/2025 4:26 PM EDT [facility] TIBC 317 250 - 450 mcg/dL LAB CHEMISTRY METHOD 04/04/2025 4:26 PM EDT [facility] Iron Saturation 33 15 - 50 % LAB CHEMISTRY METHOD 04/04/2025 4:26 PM EDT [facility] Blood Venous blood specimen / Unknown Venipuncture / Unknown 04/04/2025 2:44 PM EDT 04/04/2025 3:26 PM EDT us Vivian Dhillon MD LAB BLOOD ORDERABLES Fi nal Result Performing Organization Address [facility]/ZIP Co de Phone Number [facility] [address] [place] [address], [place] [phone] * Zinc (04/04/2025 2:44 PM EDT) Zinc 89 60 - 130 ug/dL 04/09/2025 12:43 PM EDT [facility] Comment: Elevated results may be due to sample collected in a non-certified trace element-free tube. This test was developed and the performance characteristics determined by [facility]. It has not been cleared or approved by the FDA. The laboratory is regulated under CLIA as qualified to perform high-complexity testing. This test is used for patient testing purposes. It should not be regarded as investigational or for research. Test performed at [facility], [address] , [place] [address] Marla Adan MD, PhD - Therapy Administrative Assistant Blood Venous blood specimen / Unknown Venipuncture / Unknown 04/04/2025 2:44 PM EDT 04/04/2025 3:25 PM EDT Vivian Dhillon MD LAB BLOOD ORDERABLES Fi nal Result [facility] [address] [place] [address] * Selenium serum (04/04/2025 2:44 PM EDT) [facility] Signature Selenium 140 63 - 160 mcg/L 04/10/2025 3:36 PM EDT [facility] Comment: Testing was performed on a specimen submitted in a tube which has not been certified to be free of trace elements. Repeat testing on a specimen collected in a trace element tube is recommended prior to initiation of remedial action or environmental investigation of potential heavy metal sources. Refer to the [employer] Directory of Services for proper specimen collection information. This test was developed and its analytical performance characteristics have been determined by [facility] [place], [place]. It has not been cleared or approved by the U.S. Food and Drug Administration. This assay has been validated pursuant to the CLIA regulations and is used for clinical purposes. Test Performed by [facility], [facility] [place], [address] [facility], [place], [place] Sammy Willingham M.D., Ph.D., Director of Laboratories , CLIA [id number] Blood Venous blood specimen / Unknown Venipuncture / Unknown 04/04/2025 2:44 PM EDT 04/04/2025 3:25 PM EDT us Vivian Dhillon MD LAB BLOOD ORDERABLES Fi nal Result Performing Organization Address City/[facility]/ZIP Co de Phone Number [facility] [address] [place] [address] * (ABNORMAL) Vitamin D 25 hydroxy (04/04/2025 2:44 PM EDT) Vit D, 25-Hydroxy 28.8(L) 30.0 - 80.0 ng/mL LAB CHEMISTRY METHOD 04/04/2025 4:46 PM EDT [facility] Blood Venous blood specimen / Unknown Venipuncture / Unknown 04/04/2025 2:44 PM EDT 04/04/2025 3:26 PM EDT us Vivian Dhillon MD LAB BLOOD ORDERABLES Fi nal Result Performing Organization Address [facility] Co de Phone Number [facility] [address] [place] [address], [place] [phone] * Vitamin B1 (04/04/2025 2:44 PM EDT) [facility] Vitamin B1 Whole Blood 52 38 - 122 ug/L 04/11/2025 6:12 AM EDT [facility] Comment: This test was developed and the performance characteristics determined by [facility]. It has not been cleared or approved by the FDA. The laboratory is regulated under CLIA as qualified to perform high-complexity testing. This test is used for patient testing purposes. It should not be regarded as investigational or for research. Test performed at [facility], [address], [place] [address] Marla Adan MD, PhD - Therapy Administrative Assistant Blood Venous blood specimen / Unknown Venipuncture / Unknown 04/04/2025 2:44 PM EDT 04/04/2025 3:25 PM EDT us Vivian Dhillon MD LAB BLOOD ORDERABLES Fi nal Result [facility] [address] [place] [address] * Vitamin B6 (04/04/2025 2:44 PM EDT) [facility] Vitamin B6 (Pyridoxine) Level 12 5 - 50 ug/L 04/10/2025 10:45 AM EDT [facility] Comment: This test was developed and the performance characteristics determined by [facility]. It has not been cleared or approved by the FDA. The laboratory is regulated under CLIA as qualified to perform high-complexity testing. This test is used for patient testing purposes. It should not be regarded as investigational or for research. Test performed at [facility], [address] , [place] [address] Marla Adan MD, PhD - Therapy Administrative Assistant Blood Venous blood specimen / Unknown Venipuncture / Unknown 04/04/2025 2:44 PM EDT 04/04/2025 3:25 PM EDT Vivian Dhillon MD LAB BLOOD ORDERABLES Fi nal Result Performing Organization Address [facility]/ZIP Co de Phone Number [facility] [address] [place] [address] * Folate (04/04/2025 2:44 PM EDT) [facility] Folate 9.6 2.8 - 17.0 ng/ml LAB CHEMISTRY METHOD 04/04/2025 4:49 PM EDT [facility] Blood Venous blood specimen / Unknown Venipuncture / Unknown 04/04/2025 2:44 PM EDT 04/04/2025 3:26 PM EDT us Vivian Dhillon MD LAB BLOOD ORDERABLES Fi nal Result Performing Organization Address City/[facility]/ZIP Co de Phone Number [facility] [address] [place] [address], [place] [phone] * (ABNORMAL) Vitamin B12 (04/04/2025 2:44 PM EDT) [facility] Vitamin B-12 218(L) 250 - 900 pcg/mL LAB CHEMISTRY METHOD 04/04/2025 4:49 PM EDT [facility] Blood Venous blood specimen / Unknown Venipuncture / Unknown 04/04/2025 2:44 PM EDT 04/04/2025 3:26 PM EDT us Vivian Dhillon MD LAB BLOOD ORDERABLES Fi nal Result [facility] [address] [place] [address], * (ABNORMAL) Comprehensive metabolic panel (04/04/2025 2:44 PM EDT) [facility] Sodium 139 133 - 145 mmol/L LAB CHEMISTRY METHOD 04/04/2025 4:49 PM [facility] Potassium 4.0 3.5 - 5.5 mmol/L LAB CHEMISTRY METHOD 04/04/2025 4:49 PM [facility] Chloride 105 96 - 110 mmol/L LAB CHEMISTRY METHOD 04/04/2025 4:49 PM [facility] CO2 28 21 - 32 mmol/L LAB CHEMISTRY METHOD 04/04/2025 4:49 PM [facility] Anion Gap 6 3 - 11 LAB CHEMISTRY METHOD 04/04/2025 4:49 PM [facility] Glucose 104(H) 70 - 100 mg/dL LAB CHEMISTRY METHOD 04/04/2025 4:49 PM [facility] BUN 16 5 - 25 mg/dL LAB CHEMISTRY METHOD 04/04/2025 4:49 PM [facility] Creatinine 0.82 0.50 - 1.10 mg/dL LAB CHEMISTRY METHOD 04/04/2025 4:49 PM [facility] eGFR 85 >=60 mL/min/1. 73m2 LAB CHEMISTRY METHOD 04/04/2025 4:49 PM [facility] Comment:Calculation based on the Chronic Kidney Disease Epidemiology Collaboration (CKD-EPI) equation refit without adjustment for race. BUN/Creatinine Ratio 19.5 LAB CHEMISTRY METHOD 04/04/2025 4:49 PM [facility] Calcium 8.9 8.5 - 10.5 mg/dL LAB CHEMISTRY METHOD 04/04/2025 4:49 PM [facility] AST (SGOT) 22 10 - 42 unit/L LAB CHEMISTRY METHOD 04/04/2025 4:49 PM [facility] ALT (SGPT) 32 10 - 60 unit/L LAB CHEMISTRY METHOD 04/04/2025 4:49 PM [facility] Alkaline Phosphatase 106 42 - 121 unit/L LAB CHEMISTRY METHOD 04/04/2025 4:49 PM [facility] Total Protein 6.9 6.0 - 8.0 g/dL LAB CHEMISTRY METHOD 04/04/2025 4:49 PM [facility] Albumin 4.0 3.2 - 5.0 g/dL LAB CHEMISTRY METHOD 04/04/2025 4:49 PM [facility] Total Bilirubin 0.3 0.0 - 1.4 mg/dL LAB CHEMISTRY METHOD 04/04/2025 4:49 PM [facility] Blood Venous blood specimen / Unknown Venipuncture / Unknown 04/04/2025 2:44 PM EDT 04/04/2025 3:26 PM EDT us Vivian Dhillon MD LAB BLOOD ORDERABLES Fi nal Result [facility] [address] [place] [address], * (ABNORMAL) Lipid panel (09/10/2023) LDL/HDL Ratio [...] Phone Billing Address Personal/Family Self 1970 [address] [facility] [address] [place] [phone] [facility] [employer] Care Teams Repair Technician Relationship Specialty Start Date End Date Landry Palomo MD [facility] [address] [place] [address] [address] [facility] [address] PCP - General 08/12/22
== END 2025-06-28 15:19 | disposition home or self-care (01) ==
LOC: HO.HOS 14:54
PROVIDERS: PCP Internal Medicine; Visit Provider Orthopaedic Surgery
DX: M75.42 Impingement syndrome of left shoulder (principal)
CPT/HCPCS: 20610; 99213

== ENCOUNTER → 2025-06-28 14:53 | Outpatient (BNVA) | payer OTHER, SELFPAY | PROVIDERS: PCP Internal Medicine; Visit Provider Orthopaedic Surgery | DX: M75.42 Impingement syndrome of left shoulder (principal) | CPT/HCPCS: 20610; 99212; J1010; J2003 ==

== ENCOUNTER 2025-07-05 12:09 | Outpatient (AMB) | payer OTHER, SELFPAY ==
--- NOTE | 2025-07-05 12:21 | A.OFFVIS_ITS ---
Vital Signs 07/05/25 12:26 Height 5 ft 5 in Weight 151 lb BMI 25.1 BP 122/80 Intake Visit Reasons: Repeat Urine Dip/HRT ok per norma Endocrinology Nurse Required: No Information Interpreted: non-clinical & clinical Accompanied by: Self / Same As Patient Allergies Penicillins Allergy (Intermediate, Verified 07/05/25 12:31) Hives Post menopausal: Yes HPI Comments Details: Presenting for follow-up regarding hot flashes on citalopram, the patient is requesting hormone replacement therapy. In addition the patient is presenting for repeat urine dip last visit urine dip showed microscopic hematuria, urine culture showed no growth Last mammogram in 10/07 was BI-RADS 1 Last co testing 04/03 was negative PFSH Medical History Postmenopausal HRT (hormone replacement therapy) Overweight with body mass index (BMI) of 26 to 26.9 in adult History of mammogram (~10/13/24) Chronic headaches Memory changes Hormone replacement therapy Cervical cancer screening (~03/18/22) Pruritus Type II diabetes mellitus History of PCOS Moderate major depression Anxiety Post menopausal syndrome Vaginal dryness Dark brown-colored urine Hyperlipemia Vulvar candidiasis Abnormal EKG Fatigue Vertigo Well woman exam Depression Right knee pain Cervical muscle strain Dysuria Diabetes mellitus GERD (gastroesophageal reflux disease) Essential hypertension History of PCOS Obesity (BMI 30-39.9) Hypertension Surgical History History of gastric bypass History of gastric surgery H/O: hysterectomy History of partial hysterectomy Family History Mother No problems noted. Father No problems noted. Brother No problems noted. Brother No problems noted. Sister No problems noted. Son No problems noted. Son No problems noted. Daughter No problems noted. 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 Current occupational exposures/hazards: No Cognitive needs: No Hearing needs: No Vision needs: Yes Review of Systems Const All systems reviewed & are unremarkable except as noted in HPI and below Reports as per HPI and Reports no additional complaints GI Reports no additional complaints Reports no additional complaints Results AMB Urinalysis Dipstick UR Leukocytes Negative Last Edit by Norma Baker CMA on 07/05/25 12:33 UR Nitrite Negative Last Edit by Norma Baker, [facility] on 07/05/25 12:33 UR Urobilinogen Normal Last Edit by Norma Baker, [facility] on 07/05/25 12:33 UR Protein Negative Last Edit by Norma Baker, [facility] on 07/05/25 12:33 UR Ph 7.5 Last Edit by Norma Baker, [facility] on 07/05/25 12:33 UR Blood Negative Last Edit by Norma Baker, [facility] on 07/05/25 12:33 UR Specific [place] 1.015 Last Edit by Norma Baker, [facility] on 07/05/25 12:33 UR Ketone Negative Last Edit by Norma Baker, CARE AIDE on 07/05/25 12:33 UR Bilirubin Negative Last Edit by Norma Baker, [facility] on 07/05/25 12:33 UR Glucose Negative Last Edit by Norma Baker, [facility] on 07/05/25 12:33 Assessment & Plan Assessment & Plan (1) Microscopic hematuria: Code(s): R31.29 - Other microscopic hematuria Category: Medical Plan: Repeat urine dip showed no evidence of microscopic hematuria. The patient was reassured (2) Menopause: Code(s): Z78.0 - Asymptomatic menopausal state Category: Medical Plan: Discussed with the patient the options of treatment including nonhormonal option increasing citalopram to 20 mg, optimal therapy, other non hormonal options versus estrogen replacement therapy the patient is status post hysterectomy. Discussed with the patient the benefits of estrogen including improvement in current artery disease and decrease in the risk of breast cancer, Last risk of strokes, colorectal cancer Last risk of all fracture and improved all cause mortality and decrease in the risk of diabetes. The risks of estrogen replacement therapy includes increase in the risk of pulmonary embolism DVT lung cancer and hip fracture. The patient verbalized understanding and decided to proceed with estrogen replacement therapy Climara weekly 0.025 mg sent to the patient's pharmacy. Instructions given to patient to call if symptoms do not improve and to schedule a Follow up appointment in three-month Orders: Orders AMB Urinalysis Dipstick Today R31.29 - Other microscopic hematuria Medications: New estradiol (Climara) 1 patch transdermal QWEEK 12 ea 0RF 90 days Coding Level of Care Code Est Pt Level 3 (59115) Diagnoses Microscopic hematuria R31.29 Menopause Z78.0
[2025-07-05 12:26] VITALS: BP 122/80; BMI 25.1
--- OUTSIDE RECORDS SUMMARY | 2025-07-05 15:20 | XMS_ITS | Clinical Summary ---
Author Organization [facility] Address [address] [place] [address] Phone Care Team Providers Care Program Director Scouting Name Role Phone Landry Palomo MD Primary Care Provider [phone]- [phone] Allergies Active Allergy Reactions Criticality Noted Date [...] EDT Office Visit Bariatric Surgery - [address] [phone] Vivian Dhillon MD S/P bariatric surgery (Primary Dx); Weight gain; Overweight (BMI 25.0-29.9); Inactivity 04/04/2025 4:00 PM EDT Office Visit Bariatric Surgery - [address] [phone] Vivian Dhillon MD S/P gastric sleeve procedure (Primary Dx); Overweight; Weight gain; Inactivity from Last 3 Months Surgical History Surgery Date Site/Laterality Comments APPENDECTOMY PROCEDURE: [place] APPENDECTOMY Social History Tobacco Use Types Packs/Day [...] 3:30 PM EST Office Visit Bariatric Surgery [address] [phone] Vivian Dhillon MD [address] [place] [phone] 08/22/2025 8:30 AM EST Nutrition Bariatric Surgery - [place] [address] [phone] Froylan Martita, RD [address] [phone] 11/08/2025 1:45 PM EST Office Visit Bariatric Surgery - [place] [address] [phone] Pedro Hammond MD [address] [place] [phone] Health Maintenance Due Date Last Done Comments [...] LAB HEMETOLOGY METHOD 04/04/2025 3:38 PM EDT [facility] RBC 4.30 3.80 - 4.80 M/mcL LAB HEMETOLOGY METHOD 04/04/2025 3:38 PM EDT [facility] Hemoglobin 11.5 11.5 - 16.0 g/dL LAB HEMETOLOGY METHOD [facility] Hematocrit 35.8 35.0 - 47.0 % LAB HEMETOLOGY METHOD 04/04/2025 3:38 PM [facility] MCV 83.6 79.0 - 98.0 FL LAB HEMETOLOGY METHOD 04/04/2025 3:38 PM [facility] MCH 26.9(L) 27.0 - 32.0 pcg LAB HEMETOLOGY METHOD 04/04/2025 3:38 PM [facility] MCHC 32.1 32.0 - 37.0 g/dL LAB HEMETOLOGY METHOD 04/04/2025 3:38 PM [facility] RDW 13.6 11.0 - 15.0 % LAB HEMETOLOGY METHOD 04/04/2025 3:38 PM [facility] Platelets 342 130 - 400 K/mcL LAB HEMETOLOGY METHOD 04/04/2025 3:38 PM [facility] MPV 10.6 7.0 - 11.0 FL LAB HEMETOLOGY METHOD 04/04/2025 3:38 PM [facility] NRBC 0.0 <1.0 % LAB HEMETOLOGY METHOD 04/04/2025 3:38 PM EDT [facility] NRBC Absolute 0.00 <0.10 K/mcL LAB HEMETOLOGY METHOD 04/04/2025 3:38 PM [facility] Neutrophils Relative 44.2 % LAB HEMETOLOGY METHOD 04/04/2025 3:38 PM EDT [facility] Lymphocytes Relative 43.0 % LAB HEMETOLOGY METHOD 04/04/2025 3:38 PM EDT [facility] Monocytes Relative 9.8 % LAB HEMETOLOGY METHOD 04/04/2025 3:38 PM EDT [facility] Eosinophils Relative 2.3 % LAB HEMETOLOGY METHOD 04/04/2025 3:38 PM [facility] Basophils Relative 0.5 % LAB HEMETOLOGY METHOD 04/04/2025 3:38 PM [facility] Immature Granulocytes Relative 0.2 % LAB HEMETOLOGY METHOD 04/04/2025 3:38 PM [facility] Neutrophils Absolute 1.89 1.50 - 7.00 K/mcL LAB HEMETOLOGY METHOD 04/04/2025 3:38 PM [facility] Lymphocytes Absolute 1.84 1.00 - 5.00 K/mcL LAB HEMETOLOGY METHOD 04/04/2025 3:38 PM [facility] Monocytes Absolute 0.42 0.20 - 1.00 K/mcL LAB HEMETOLOGY METHOD 04/04/2025 3:38 PM [facility] Eosinophils Absolute 0.10 0.00 - 0.50 K/mcL LAB HEMETOLOGY METHOD 04/04/2025 3:38 PM [facility] Basophils Absolute 0.02 0.00 - 0.20 K/mcL LAB HEMETOLOGY METHOD 04/04/2025 3:38 PM [facility] Immature Granulocytes Absolute 0.01 0.00 - 0.03 K/mcL LAB HEMETOLOGY METHOD 04/04/2025 3:38 PM EDT [facility] Blood Venous blood specimen / Unknown Venipuncture / Unknown 04/04/2025 2:44 PM EDT 04/04/2025 3:25 PM EDT us Vivian Dhillon MD LAB BLOOD ORDERABLES Fi nal Result Performing Organization Address [facility]/State/ZIP Co de Phone Number [facility] [address] [place] [address], [place] [phone] * Iron and TIBC (04/04/2025 2:44 PM EDT) Iron 105 40 - 150 mcg/dL LAB CHEMISTRY METHOD 04/04/2025 4:26 PM EDT [facility] TIBC 317 250 - 450 mcg/dL LAB CHEMISTRY METHOD 04/04/2025 4:26 PM EDT [facility] Iron Saturation 33 15 - 50 % LAB CHEMISTRY METHOD 04/04/2025 4:26 PM EDT [facility] Blood Venous blood specimen / Unknown Venipuncture / Unknown 04/04/2025 2:44 PM EDT 04/04/2025 3:26 PM EDT us Vivian Dhillon MD LAB BLOOD ORDERABLES Fi nal Result Performing Organization Address [facility]/ZIP Co de Phone Number [facility] [address] [place] [address], [place] [phone] * Zinc (04/04/2025 2:44 PM EDT) Zinc 89 60 - 130 ug/dL 04/09/2025 12:43 PM EDT [facility] Comment: Elevated results may be due to sample collected in a non-certified trace element-free tube. This test was developed and the performance characteristics determined by [facility]. It has not been cleared or approved by the FDA. The laboratory is regulated under CLIA as qualified to perform high-complexity testing. This test is used for patient testing purposes. It should not be regarded as investigational or for research. Test performed at [facility], [address] , [place] [address] Marla Adan MD, PhD - Wireworker Supervisor Blood Venous blood specimen / Unknown Venipuncture / Unknown 04/04/2025 2:44 PM EDT 04/04/2025 3:25 PM EDT Vivian Dhillon MD LAB BLOOD ORDERABLES Fi nal Result [facility] [address] [place] [address] * Selenium serum (04/04/2025 2:44 PM EDT) [facility] Signature Selenium 140 63 - 160 mcg/L 04/10/2025 3:36 PM EDT [facility] Comment: Testing was performed on a specimen submitted in a tube which has not been certified to be free of trace elements. Repeat testing on a specimen collected in a trace element tube is recommended prior to initiation of remedial action or environmental investigation of potential heavy metal sources. Refer to the [employer] of Services for proper specimen collection information. This test was developed and its analytical performance characteristics have been determined by [facility] [place], [place]. It has not been cleared or approved by the U.S. Food and Drug Administration. This assay has been validated pursuant to the CLIA regulations and is used for clinical purposes. Test Performed by [facility] [place], [address] [address] [facility], [place], [place] Sammy Willingham M.D., Ph.D., Director of Laboratories , CLIA [id number] Blood Venous blood specimen / Unknown Venipuncture / Unknown 04/04/2025 2:44 PM EDT 04/04/2025 3:25 PM EDT us Vivian Dhillon MD LAB BLOOD ORDERABLES Fi nal Result Performing Organization Address City/[facility]/ZIP Co de Phone Number [facility] [address] [place] [address] * (ABNORMAL) Vitamin D 25 hydroxy (04/04/2025 2:44 PM EDT) Vit D, 25-Hydroxy 28.8(L) 30.0 - 80.0 ng/mL LAB CHEMISTRY METHOD 04/04/2025 4:46 PM EDT [facility] Blood Venous blood specimen / Unknown Venipuncture / Unknown 04/04/2025 2:44 PM EDT 04/04/2025 3:26 PM EDT us Vivian Dhillon MD LAB BLOOD ORDERABLES Fi nal Result Performing Organization Address [facility] Co de Phone Number [facility] [address] [place] [address], [place] [phone] * Vitamin B1 (04/04/2025 2:44 PM EDT) [facility] Vitamin B1 Whole Blood 52 38 - 122 ug/L 04/11/2025 6:12 AM EDT [facility] Comment: This test was developed and the performance characteristics determined by [facility]. It has not been cleared or approved by the FDA. The laboratory is regulated under CLIA as qualified to perform high-complexity testing. This test is used for patient testing purposes. It should not be regarded as investigational or for research. Test performed at [facility], [address], [place] [address] Marla Adan MD, PhD - Wireworker Supervisor Blood Venous blood specimen / Unknown Venipuncture / Unknown 04/04/2025 2:44 PM EDT 04/04/2025 3:25 PM EDT us Vivian Dhillon MD LAB BLOOD ORDERABLES Fi nal Result [facility] [address] [place] [address] * Vitamin B6 (04/04/2025 2:44 PM EDT) [facility] Vitamin B6 (Pyridoxine) Level 12 5 - 50 ug/L 04/10/2025 10:45 AM EDT [facility] Comment: This test was developed and the performance characteristics determined by [facility]. It has not been cleared or approved by the FDA. The laboratory is regulated under CLIA as qualified to perform high-complexity testing. This test is used for patient testing purposes. It should not be regarded as investigational or for research. Test performed at [facility], [address] , [place] [address] Marla Adan MD, PhD - Wireworker Supervisor Blood Venous blood specimen / Unknown Venipuncture / Unknown 04/04/2025 2:44 PM EDT 04/04/2025 3:25 PM EDT Vivian Dhillon MD LAB BLOOD ORDERABLES Fi nal Result Performing Organization Address [facility]/ZIP Co de Phone Number [facility] [address] [place] [address] * Folate (04/04/2025 2:44 PM EDT) [facility] Folate 9.6 2.8 - 17.0 ng/ml LAB CHEMISTRY METHOD 04/04/2025 4:49 PM EDT [facility] Blood Venous blood specimen / Unknown Venipuncture / Unknown 04/04/2025 2:44 PM EDT 04/04/2025 3:26 PM EDT us Vivian Dhillon MD LAB BLOOD ORDERABLES Fi nal Result Performing Organization Address City/[facility]/ZIP Co de Phone Number [facility] [address] [place] [address], [place] [phone] * (ABNORMAL) Vitamin B12 (04/04/2025 2:44 PM EDT) Pathologist [facility] Vitamin B-12 218(L) 250 - 900 pcg/mL LAB CHEMISTRY METHOD 04/04/2025 4:49 PM EDT [facility] Blood Venous blood specimen / Unknown Venipuncture / Unknown 04/04/2025 2:44 PM EDT 04/04/2025 3:26 PM EDT us Vivian Dhillon MD LAB BLOOD ORDERABLES Fi nal Result [facility] [address] [place] [address], * (ABNORMAL) Comprehensive metabolic panel (04/04/2025 2:44 PM EDT) [facility] Sodium 139 133 - 145 mmol/L LAB CHEMISTRY METHOD 04/04/2025 4:49 PM [facility] Potassium 4.0 3.5 - 5.5 mmol/L LAB CHEMISTRY METHOD 04/04/2025 4:49 PM [facility] Chloride 105 96 - 110 mmol/L LAB CHEMISTRY METHOD 04/04/2025 4:49 PM [facility] CO2 28 21 - 32 mmol/L LAB CHEMISTRY METHOD 04/04/2025 4:49 PM [facility] Anion Gap 6 3 - 11 LAB CHEMISTRY METHOD 04/04/2025 4:49 PM [facility] Glucose 104(H) 70 - 100 mg/dL LAB CHEMISTRY METHOD 04/04/2025 4:49 PM [facility] BUN 16 5 - 25 mg/dL LAB CHEMISTRY METHOD 04/04/2025 4:49 PM [facility] Creatinine 0.82 0.50 - 1.10 mg/dL LAB CHEMISTRY METHOD 04/04/2025 4:49 PM [facility] eGFR 85 >=60 mL/min/1. 73m2 LAB CHEMISTRY METHOD 04/04/2025 4:49 PM [facility] Comment:Calculation based on the Chronic Kidney Disease Epidemiology Collaboration (CKD-EPI) equation refit without adjustment for race. BUN/Creatinine Ratio 19.5 LAB CHEMISTRY METHOD 04/04/2025 4:49 PM [facility] Calcium 8.9 8.5 - 10.5 mg/dL LAB CHEMISTRY METHOD 04/04/2025 4:49 PM [facility] AST (SGOT) 22 10 - 42 unit/L LAB CHEMISTRY METHOD 04/04/2025 4:49 PM [facility] ALT (SGPT) 32 10 - 60 unit/L LAB CHEMISTRY METHOD 04/04/2025 4:49 PM [facility] Alkaline Phosphatase 106 42 - 121 unit/L LAB CHEMISTRY METHOD 04/04/2025 4:49 PM [facility] Total Protein 6.9 6.0 - 8.0 g/dL LAB CHEMISTRY METHOD 04/04/2025 4:49 PM [facility] Albumin 4.0 3.2 - 5.0 g/dL LAB CHEMISTRY METHOD 04/04/2025 4:49 PM [facility] Total Bilirubin 0.3 0.0 - 1.4 mg/dL LAB CHEMISTRY METHOD 04/04/2025 4:49 PM [facility] Blood Venous blood specimen / Unknown Venipuncture / Unknown 04/04/2025 2:44 PM EDT 04/04/2025 3:26 PM EDT us Vivian Dhillon MD LAB BLOOD ORDERABLES Fi nal Result [facility] [address] [place] [address], * (ABNORMAL) Lipid panel (09/10/2023) LDL/HDL Ratio [...] Phone Billing Address Personal/Family Self 1970 [address] [place] [address] [facility] [employer] Care Teams Program Director Scouting Relationship Specialty Start Date End Date Landry Palomo MD [facility] [address] [place] [address] [address] [facility] [id number] PCP - General 08/12/22
== END 2025-07-05 13:05 | disposition home or self-care (01) ==
LOC: HO.HWS 12:09
PROVIDERS: PCP Internal Medicine; Visit Provider Obstetrics & Gynecology
DX: R31.29 Other microscopic hematuria (principal); Z78.0 Asymptomatic menopausal state
CPT/HCPCS: 99213

== ENCOUNTER → 2025-07-05 12:09 | Outpatient (BNVA) | payer OTHER, SELFPAY | PROVIDERS: PCP Internal Medicine; Visit Provider Obstetrics & Gynecology | DX: Z78.0 Asymptomatic menopausal state (principal); R31.29 Other microscopic hematuria | CPT/HCPCS: 81002; 99212 ==